=== PATIENT | male | born 1990 | race Caucasian/White ===

== ENCOUNTER 2025-09-08 20:40 | Inpatient (IN) | payer MEDICARE, MEDICAID, SELFPAY ==
--- OUTSIDE RECORDS SUMMARY | 2025-09-06 08:53 | XMS_ITS | Encounter Summary ---
Author Organization [facility] ystem Address [address] [place] [address] Phone Care Team Providers Care Exhibitor Sales Name Role Phone Ainsley Calloway NP Primary Care Provider [phone] Encounter Details Date Type Department Care Team (Late st Contact Info) Description 09/06/2025 8:53 AM EST Anesthesia Event [facility] [address] [place] [address] Kyara Wakefield, PEGGY [address] [facility] [address] [place] [address] Anesthesia Record Procedure Summary Procedure Name Responsible Anesthesiologist Anesthesia Start Time Anesthesia Stop Time Events No events on file. Meds * Agents No agents on file. * Blood No blood administrations on file. Lines, Drains, and Airways No LDAs on file. documented in this encounter Social History Tobacco Use Types Packs/Day Years Used Date Smoking Tobacco: Never Smokeless Tobacco: Never Alcohol Use Standard Drinks/Week Comments No 0 (1 standard drink = 0.6 oz pur e alcohol) Sex and Gender Information Value Date Recorded Sex Assigned at Male 06/13/2025 12:32 PM EDT Legal Sex Male 8:58 AM EDT Gender Identity Male 06/13/2025 12:32 PM EDT Sexual Orientation Not on file documented as of this encounter Functional Status * Are you deaf or do you have serious difficulty hearing? Answer Date of Assessment Author No 08/05/2025 1:00 AM Svitlana Alvarado RN * Are you blind or do you have serious difficulty seeing, even when wearing glasses? Answer Date of Assessment Author No 08/05/2025 1:00 AM Svitlana Alvarado RN * Do you have serious difficulty walking or climbing stairs? Answer Date of Assessment Author No 08/05/2025 1:00 AM Svitlana Alvarado RN * Do you have serious difficulty dressing or bathing? Answer Date of Assessment Author No 08/05/2025 1:00 AM Svitlana Alvarado RN * Because of a physical, mental, or emotional condition, do you have serious difficulty doing errandsalone such as visiting the doctor? Answer Date of Assessment Author No 08/05/2025 1:00 AM Svitlana Alvarado RN documented as of this encounter Mental Status * Because of a physical, mental, or emotional condition, do you have serious difficulty concentrating, remembering, or making decisions? Answer Entry Date Author No 08/05/2025 1:00 AM Svitlana Alvarado RN documented in this encounter Plan of Treatment Not on file documented as of this encounter Visit Diagnoses Not on filedocumented in this encounter Care Teams Exhibitor Sales Relationship Specialty Start Date End Date Ainsley Calloway NP [address] [place] [id number] PCP - General Family Medicine 02/06/25 documented as of this encounter
--- OUTSIDE RECORDS SUMMARY | 2025-09-07 14:05 | XMS_ITS | Encounter Summary ---
Author Organization [facility] Address [address] [place] [address] Phone Care Team Providers Care Reporter Anchor Name Role Phone Ainsley Calloway NP Primary Care Provider [phone] Reason for Visit * Reason Comments Suicidal Homicidal Encounter Details Date Type Department Care Team (Latest Contact Info) Description 09/07/2025 2:05 PM EST - 09/08/2025 6:07 PM EST Hospital Encounter [facility] - Emergency Department [address] [place] [phone] Pete Bowman MD [address] [place] [phone] Handy Hoyos MD [address] [place] [address] [phone] Patrick Malik MD [address] [place] [phone] Eric Chaidez MD [address] [place] [address] [phone] Suicidal ideation (Primary Dx); Influenza A; Schizoaffective disorder, unspecified type (CMS/HCC) [F25.9] Discharge Disposition: Psychiatric Facility Social History Tobacco Use Types Packs/Day Years [...] on file documented as of this encounter Last Filed Vital Signs Vital Sign Reading Time Taken Comments Blood Pressure 124/78 09/08/2025 6:04 PM EST Pulse 78 09/08/2025 6:04 PM EST Temperature 36.9 C (98.4 F) 09/08/2025 6:04 PM EST Respiratory Rate 15 09/08/2025 6:04 PM EST Oxygen Saturation 99% 09/08/2025 6:04 PM EST Inhaled Oxygen Concentration - - Weight - - Height - - Body Mass Index - - documented in this encounter Functional Status * Are you [...] of Assessment Author No 08/05/2025 1:00 AM Luis Daniel Alvarado RN * Do you have serious difficulty dressing or bathing? Answer Date of Assessment Author No 08/05/2025 1:00 AM Svitlana Alvarado RN * Because of a physical, mental, or emotional condition, do you have serious difficulty doing errandsalone such as visiting the doctor? Answer Date of Assessment Author No 08/05/2025 1:00 AM Svitlana Alvarado RN * SI Initial Risk Score (Dickinson/C-SSRS) Question Answer Date of Assessment Author 1. Wish to be 1 09/07/2025 2:30 PM Zhane Curtis RN 2. Non-Specifc Active Suicid al Thoughts (now or prior to arrival) 0 09/07/2025 2:30 PM Zhane Curtis RN SI Admission Asmt Score 1 09/07/2025 2:30 P M Zhane Curtis RN 3. Suicidal Thoughts with Me thod Without Specific Plan or Intent to Act 0 09/07/2025 2:30 PM Zhane Curtis RN 4. Suicidal Intent Without Specific Plan 0 09/07/2025 2:30 PM Zhane Curtis RN 5. Suicide Intent with Speci fic Plan 0 09/07/2025 2:30 PM Zhane Curtis RN How long ago did you do any of these? 0 09/07/2025 2:30 PM Zhane Curtis RN * Calculated C-SSRS Risk Score (Lifetime/Recent) Answer Date of Assessment Author Moderate Risk 09/07/2025 10:06 PM Christine Romero MSW * Suicidal Ideation Question Answer Date of Assessment Author 1. Wish to be (Lifetime) Yes 09/07/2025 10:06 PM Christine Romero MSW 2. Non-Specific Active Suici iwona Thoughts (Lifetime) Yes 09/07/2025 10:06 PM Christine Romero MSW 3. Active Suicidal Ideation with any Methods (Not Plan) Without Intent to Act (Lifetime) Yes 09/07/2025 10:06 PM Misty Romero MSW 4. Active Suicidal Ideation with Some Intent to Act, Without Specific Plan (Lifetime) No 09/07/2025 10:06 PM Misty Romero MSW 5. Active Suicidal Ideation with Specific Plan and Intent (Lifetime) No 09/07/2025 10:06 PM Christine Romero MSW 1. Wish to be (Past 1 Month) Yes 09/07/2025 10:06 PM Christine Romero MSW 2. Non-Specific Active Suici iwona Thoughts (Past 1 Month) Yes 09/07/2025 10:06 PM Me neeraj Romero ROOF PANEL HANGER 3. Active Suicidal Ideation with any Methods (Not Plan) Without Intent to Act (Past 1 Month) Yes 09/07/2025 10:06 PM EST McCarth y, Christine, ROOF PANEL HANGER 4. Active Suicidal Ideation with Some Intent to Act, Without Specific Plan (Past 1 Month) No 09/07/2025 10:06 PM EST McCarth y, Christine, ROOF PANEL HANGER 5. Active Suicidal Ideation with Specific Plan and Intent (Past 1 Month) No 09/07/2025 10:06 PM EST Davila, Christine , ROOF PANEL HANGER * Intensity of Ideation Question Answer Date of Assessment Author Most Severe Ideation Rating (Lifetime) 2 09/07/2025 10:06 PM EST Davila, Christine , ROOF PANEL HANGER Frequency (Lifetime) 5 09/07/2025 10:06 PM EST Davila, Christine, ROOF PANEL HANGER Duration (Lifetime) 3 09/07/2025 10:[address] Davila, Christine, ROOF PANEL HANGER Controllability (Lifetime) 3 09/07/2025 10: 06 PM EST Davila, Christine, ROOF PANEL HANGER Deterrents (Lifetime) 1 09/07/2025 10:06 PM EST Davila, Christine, ROOF PANEL HANGER Reasons for Ideation (Lifetime) 2 10:06 PM EST Davila, Christine, ROOF PANEL HANGER Most Severe Ideation Rating (Past 1 Month) 2 09/07/2025 10:06 PM EST Davila, Christine , ROOF PANEL HANGER Frequency (Past 1 Month) 5 09/07/2025 10:06 PM EST Davila, Christine, ROOF PANEL HANGER Duration (Past 1 Month) 3 09/07/2025 10:06 PM EST Davila, Christine, ROOF PANEL HANGER Controllability (Past 1 Month) 3 09/07/2025 10:06 PM EST Davila, Christine, ROOF PANEL HANGER Deterrents (Past 1 Month) 1 09/07/2025 10:0 6 PM EST Davila, Christine, ROOF PANEL HANGER Reasons for Ideation (Past 1 Month) 2 09/07/2025 10:06 PM EST Davila, Christine , ROOF PANEL HANGER * Suicidal Behavior Question Answer Date of Assessment Author Actual Attempt (Lifetime) No 09/07/2025 10:0 6 PM EST Davila, Christine, ROOF PANEL HANGER Has subject engaged in non-suicidal self-injurious behavior? (Lifetime) No 09/07/2025 10:06 PM EST Giovanni Chichi stanford, ALYSSA Interrupted Attempts (Lifetime) No 10:06 PM EST Giovanni ChristineALYSSA Aborted or Self-Interrupted Attempt (Lifetime) No 09/07/2025 10:06 PM EST Davila, Christine ALYSSA Preparatory Acts or Behavior (Lifetime) No 09/07/2025 10:06 PM EST Christine Davila ROOF PANEL HANGER documented as of this encounter Mental Status * Because of a physical, mental, or emotional condition, do you have serious difficulty concentrating, remembering, or making decisions? Answer Entry Date Author No 08/05/2025 1:00 AM EST Svitlana Frias RN documented in this encounter Discharge Instructions * Discharge Instructions* Pete Bowman MD - 09/07/2025 3:02 PM EST Instructions as per [facility] inpatient placement. * Attachments The following attachments cannot be sent through Care Everywhere. * Suicidal Thoughts ([place]) * Depression, Adult ED ([place]) * Influenza ([place]) documented in this encounter Medications at Time of Discharge metoclopramide (REGLAN) 10 MG tablet Take 10 mg by mouth three times a day as needed (Nausea) meclizine (ANTIVERT) 12.5 MG tablet Take 1 tablet (12.5 mg) by mouth three times a day as needed for dizziness 30 tablet 08/06/2025 hydrOXYzine (ATARAX) 25 MG tablet Take 25 mg by mouth nightly sertraline (ZOLOFT) 50 MG tablet Take 50 mg by mouth nightly with 25 mg tablet for total dose 75 mg nightly Beclomethasone Diprop HFA (Qvar RediHaler) 40 MCG/ACT aerosol Inhale 2 puffs two times a day Melatonin 5 MG tablet Take 5 mg by mouth nightly Gummy lactobacillus (CULTURELLE) capsule Take 1 capsule by mouth two times a day polyethylene glycol (GLYCOLAX) 17 GM/SCOOP powder Take 17 g by mouth nightly as needed multivitamin with minerals (THERA M PLUS) tablet Take 1 tablet by mouth daily dicyclomine (BENTYL) 20 MG tablet Take 20 mg by mouth two times a day gabapentin (NEURONTIN) 800 MG tablet Take 800 mg by mouth nightly famotidine (PEPCID) 20 MG tablet Take 20 mg by mouth two times a day irbesartan (AVAPRO) 150 MG tablet Take 150 mg by mouth every morning propranolol (INDERAL) 40 MG tablet Take 40 mg by mouth two times a day sucralfate (CARAFATE) 1 g tablet Take 1 g by mouth three times a day acetaminophen (TYLENOL) 500 MG tablet Take 1,000 mg by mouth every six hours as needed (pain) OXcarbazepine (TRILEPTAL) 150 MG tablet Take 150 mg by mouth nightly albuterol HFA (PROVENTIL HFA;VENTOLIN HFA) 108 (90 Base) MCG/ACT inhaler Inhale 1 puff 3 (three) times a day 08/22/2014 omeprazole (PriLOSEC) 40 MG capsule Take 40 mg by mouth daily on empty stomach 01/15/2022 sertraline (ZOLOFT) 25 MG tablet Take 25 mg by mouth nightly with 50 mg tablet for total dose 75 mg nightly documented as of this encounter Progress Notes * Yi Parker PhT - 09/08/2025 10:15 AM EST Medication History Review The prior to admission(TRANSPORTATION BROKER) medication list was reviewed and updated for Doreen Marie. The patient was interviewed and found to be a good historian. Information gathered from: Dr. Grimaldo, [facility], and Other (Patient) Assessment of compliance with medication regimen at home: Compliant Patient is on the following high risk medication(s): Anticonvulsant - Oxcarbazepine, Gabapentin Medications with discrepancies: Other: Patient reports he ran out/is almost out of Mutlivitamin, probiotic, Meclizine, Metoclopramide Medication (s) patient no longer takes or was removed from TRANSPORTATION BROKER list (select All that applies): Patient reports not taking: Amoxicillin - finished taking; states he was to take final 2 tablets today (09/08) Cranberry Supplement Flonase - states this made his nose bleed Ondansetron Additional Comments: Patient was interviewed bedside and found to be a good historian. Patient reports: Gabapentin 800 mg nightly Oxcarbazepine 150 mg nightly Metoclopramide 10 mg TID PRN Patient denies Aspirin. TRANSPORTATION BROKER list updated with sources available at time of consult Medication list: Prior to Admission Medications Prescriptions Informant Beclomethasone Diprop HFA (Qvar RediHaler) 40 MCG/ACT aerosol Self, Pharmacy prescription data Sig: Inhale 2 puffs two times a day Melatonin 5 MG tablet Self Sig: Take 5 mg by mouth nightly Gummy OXcarbazepine (TRILEPTAL) 150 MG tablet Self, Pharmacy prescription data Sig: Take 150 mg by mouth nightly acetaminophen (TYLENOL) 500 MG tablet Self Sig: Take 1,000 mg by mouth every six hours as needed (pain) albuterol HFA (PROVENTIL HFA;VENTOLIN HFA) 108 (90 Base) MCG/ACT inhaler Self, Pharmacy prescription data Sig: Inhale 1 puff 3 (three) times a day dicyclomine (BENTYL) 20 MG tablet Self, Pharmacy prescription data Sig: Take 20 mg by mouth two times a day famotidine (PEPCID) 20 MG tablet Self, Pharmacy prescription data Sig: Take 20 mg by mouth two times a day gabapentin (NEURONTIN) 800 MG tablet Self, Pharmacy prescription data Sig: Take 800 mg by mouth nightly hydrOXYzine (ATARAX) 25 MG tablet Self, Pharmacy prescription data Sig: Take 25 mg by mouth nightly irbesartan (AVAPRO) 150 MG tablet Self, Pharmacy prescription data Sig: Take 150 mg by mouth every morning lactobacillus (CULTURELLE) capsule Self Sig: Take 1 capsule by mouth two times a day meclizine (ANTIVERT) 12.5 MG tablet Self Sig: Take 1 tablet (12.5 mg) by mouth three times a day as needed for dizziness metoclopramide (REGLAN) 10 MG tablet Self, Pharmacy prescription data Sig: Take 10 mg by mouth three times a day as needed (Nausea) multivitamin with minerals (THERA M PLUS) tablet Self Sig: Take 1 tablet by mouth daily omeprazole (PriLOSEC) 40 MG capsule Self, Pharmacy prescription data Sig: Take 40 mg by mouth daily on empty stomach polyethylene glycol (GLYCOLAX) 17 GM/SCOOP powder Self Sig: Take 17 g by mouth nightly as needed propranolol (INDERAL) 40 MG tablet Self, Pharmacy prescription data Sig: Take 40 mg by mouth two times a day sertraline (ZOLOFT) 25 MG tablet Self, Pharmacy prescription data Sig: Take 25 mg by mouth nightly with 50 mg tablet for total dose 75 mg nightly sertraline (ZOLOFT) 50 MG tablet Self, Pharmacy prescription data Sig: Take 50 mg by mouth nightly with 25 mg tablet for total dose 75 mg nightly sucralfate (CARAFATE) 1 g tablet Self, Pharmacy prescription data Sig: Take 1 g by mouth three times a day Facility-Administered Medications: None Patient Complexity Score for Pharmacy Medication History (ED) ED Pharmacy Complexity Score: 50 Patient Complexity Score for Pharmacy Medication History (INPT) INPT Pharmacy Complexity Score: 50 *Please note - This home medication list was updated using the resources available at the time of the consult and may require further updates as new information becomes available* Winston Martin documented in this encounter Consult Notes * Ally Hargrove CNP - 09/08/2025 12:48 PM EST Images from the original note were not included. PSYCHIATRIC CONSULTATION REASON FOR CONSULT A psychiatric consult was placed by Dr. Malik for evaluation of a patient with suicidal ideation.The patient's record was reviewed, patient was interviewed, and clinical staff were consulted to complete this comprehensive psychiatric consultation. Patient Name: Doreen Marie Date of : 1990 Date of Service: 09/08/2025 Time of Service: 2:06 PM Length of Service: 78 minutes Source of information: Patient, Staff collateral CHIEF COMPLAINT: I am not feeling well HISTORY OF PRESENT ILLNESS The patient is a 35 y.o. male with a psychiatric history of schizoaffective disorder. Bipolar type versus bipolar disorder, history of inpatient hospitalizations, no history of suicide attempts who presented on 09/07/2025 to the Emergency Department for suicidal ideation with no plan as well as vague HI with no plan or intent. Per ED triage note: Doreen Marie is a 35 y.o. male presenting with Suicidal and Homicidal Self present with mother reports suicidal and homicidal, reports hx of Schizophrenia, called outpt crisis team, advised to come in, reports currently on abx for ear infection, I don't know if that'swhat is messing with me , denies any substance or alcohol use, [facility] aware Patient is seen, resting on a bed in his room. He is noted to be calm and cooperative on approach. He states that he is in the hospital because he is not feeling well, and that he has not been sleeping much over the past week. He states that his sister has been staying with him to help him, howeverhe has been having thoughts of wanting to harm himself and also vague thoughts to harm her. He denies any plan or intent with wanting to harm himself or his sister, and reports that he would not harmhis sister. He states that his mood has been okay, however he is noted to be flat through out assessment. He reports that over the past week, he has not been sleeping much, getting a total of 8-10 hours over the past week. He states that his appetite had been normal, however he physically is not feeling well due to having the flu, and his appetite has decreased. He continues to endorse SI with noplan or intent at this time, and feels safe in the hospital. He cannot identify any clear trigger for his suicidal thoughts either. When asked about hallucinations, he states that he might be hearingsome voices, and he reports that he is seeing images in his mind. He reports that he is achy, sweaty and cold on exam, secondary to influenza infection. He reports that he has been compliant with his medications as well. Discussed plan of care with patient, which he verbalized understanding to. At this time Marlenye are involved in the treatment planning for this patient. Presenting Problem: suicidal ideation, depression Frequency: worsening over the past week Modifiable factors: IPLOC Severity: moderate PAST PSYCHIATRIC HISTORY Outpatient psychiatric providers: Provider: Dr. Carmelita Yusuf Therapist: Reports he has a new therapist Past medication trails: trileptal, hydroxyzine, gabapentin, sertraline, abilify (allergy); trazodone (allergy) History of inpatient psychiatric hospitalization: reports remote history of inpatient hospitalizations 10 years ago History of suicide attempts: denies Date of most recent suicide attempt:N/A History of Self-Injurious behavior: denies History of violence towards others: denies History of eating disorder:no History of Trauma:none elicited FAMILY PSYCHIATRIC HISTORY Family history of psychiatric illness: Mother with schizoaffective d/o, bipolar type, sister with mental illness Family history of suicide attempt: denies Family history of substance use disorder: denies SUBSTANCE HISTORY: Only listing what is appropriate History of: Alcohol use: Denies Tobacco use: Denies Marijuana use: Denies Opioid use: Denies Cocaine use: Denies Other: Denies History of detox/treatment admissions for substance use: Denies History of substance related legal issues: Denies MEDICAL/SURGICAL HISTORY: Name of outpatient PCP: Ainsley Calloway NP History of: Head injury: Denies Seizures: Denies RAILROAD COMMISSIONER infection: Denies Chronic pain: Denies Obstructive Sleep Apnea (STONE): Denies SOCIAL HISTORY: Living situation: Lives alone : no Children: no Employment: Denies being employed at this time Social History Socioeconomic History Marital status: Single Spouse name: Not on file Number of children: Not on file Years of education: Not on file Highest education level: Not on file Occupational History Not on file Tobacco Use Smoking status: Never Smokeless tobacco: Never Substance and Sexual Activity Alcohol use: No Drug use: No Sexual activity: Defer Other Topics Concern Not on file Social History Narrative Not on file Social Drivers of Health Financial Resource Strain: Not on file Food Insecurity: Food Insecurity Present (10/24/2024) Received from [facility] [employer] Hunger Vital Sign Within the past 12 months, you worried that your food would run out before you got the money to buymore.: Sometimes true Within the past 12 months, the food you bought just didn't last and you didn't have money to get more.: Sometimes true Transportation Needs: Unmet Transportation Needs (10/24/2024) Received from [facility] PRAPARE - Transportation Lack of Transportation (Medical): Yes Lack of Transportation (Non-Medical): Yes Physical Activity: Not on file Stress: Not on file Social Connections: Not on file Intimate Partner Violence: Not on file Housing Stability: Low Risk (10/24/2024) Received from [facility] Housing Stability What is your housing situation today?: Has housing Are you worried about losing your housing?: No Think about the place you live. Do you have problem with any of the following? (Choose all that apply): None of the Above ALLERGIES: Allergies[1] RELEVANT LABS: Recent Results (from the past 24 hours) Urine drugs of abuse screen Collection Time: 09/07/25 2:45 PM Result Value Ref Range Amphetamines, Urine Screen None Detected None Detected Barbiturates, Urine Screen None Detected None Detected Benzodiazepines, Urine Screen None Detected None Detected Cocaine, Urine Screen None Detected None Detected Opiates, Urine Screen None Detected None Detected Cannabinoids (THC), Urine Screen None Detected None Detected Tricyclic Antidepressants, Urine Screen None Detected None Detected Fentanyl, Urine Screen None Detected None Detected Methadone, Urine Screen None Detected None Detected Oxycodone, Urine Screen None Detected None Detected Buprenorphine, Urine Screen None Detected None Detected Phencyclidine, Urine Screen None Detected None Detected COVID-19 ([facility]) Collection Time: 09/07/25 2:45 PM Specimen: Nasopharynx; Swab Result Value Ref Range COVID-19 ([facility]) PCR Negative Negative Extra Urine Culture Tube Collection Time: 09/07/25 2:45 PM Specimen: Urine, Clean Catch Result Value Ref Range Extra Tube Urinalysis with reflex Collection Time: 09/07/25 2:45 PM Result Value Ref Range Color, Urine Colorless Colorless, Yellow Clarity, Urine Clear Clear Specific [place], Urine 1.001 (L) 1.002 - 1.030 pH, Urine 6.5 5.0 - 8.0 Leukocytes, Urine Negative Negative Nitrite, Urine Negative Negative Protein, Urine Negative Negative Glucose, Urine Negative Negative Ketones, Urine Negative Negative Bilirubin, Urine Negative Negative Blood, Urine Negative Negative Flu PCR Collection Time: 09/07/25 2:45 PM Specimen: Nasopharynx; Swab Result Value Ref Range Flu A by PCR Positive (A) Negative Flu B by PCR Negative Negative Respiratory Syncytial Virus PCR Collection Time: 09/07/25 2:45 PM Specimen: Nasopharynx; Swab Result Value Ref Range Respiratory Syncytial Virus PCR Negative Negative CBC with auto differential Collection Time: 09/07/25 4:44 PM Result Value Ref Range WBC 6.7 4.5 - 10.8 10*3 ??l RBC 5.05 4.70 - 6.10 10*6 ??l Hemoglobin 13.5 (L) 14.0 - 18.0 g/dL Hematocrit 40.9 (L) 42.0 - 52.0 % MCV 81 80 - 95 fL MCH 26.7 25.4 - 39.0 pg MCHC 33.0 31.0 - 37.0 g/dL RDW 13.7 11.5 - 14.5 % Platelets 340 150 - 450 10*3 ??l MPV 9.2 7.0 - 11.0 fL Neutrophils % 45.4 40.0 - 80.0 % Lymphocytes % 38.5 20.0 - 40.0 % Monocytes % 12.7 (H) 2.0 - 10.0 % Eosinophils % 2.2 1.0 - 6.0 % Basophils % 0.9 0.0 - 1.0 % Immature Granulocyte % 0.3 0.0 - 0.9 % Neutrophils Absolute 3.03 2.00 - 7.00 K/mm3 Absolute Immature Granulocyte 0.02 0.00 - 0.09 K/mm3 Lymphocytes Absolute 2.57 1.00 - 3.00 K/mm3 Monocytes Absolute 0.85 0.20 - 1.00 K/mm3 Eosinophils Absolute 0.15 0.00 - 0.50 K/mm3 Basophils Absolute 0.06 0.00 - 0.10 K/mm3 Comprehensive metabolic panel Collection Time: 09/07/25 4:44 PM Result Value Ref Range Glucose 85 70 - 100 mg/dL BUN 5 (L) 6 - 19 mg/dL Creatinine 0.7 0.4 - 1.2 mg/dL eGFR >60.00 >60.00 mL/min/1.73m*2 Sodium 141 135 - 145 mmol/L Potassium 3.5 3.4 - 5.1 mmol/L Chloride 103 98 - 109 mmol/L CO2 22 22 - 29 mmol/L Anion Gap 16 6 - 16 mmol/L Calcium 9.2 8.5 - 10.5 mg/dL Total Bilirubin 0.4 0.2 - 1.2 mg/dL Alkaline Phosphatase 94 40 - 129 U/L ALT (SGPT) 21 0 - 40 U/L AST 24 0 - 37 U/L Total Protein 7.7 6.0 - 8.5 g/dL Albumin 4.7 3.3 - 5.2 g/dL Estimated Creatinine Clearance 195.1 mL/min Acetaminophen level Collection Time: 09/07/25 4:44 PM Result Value Ref Range Acetaminophen Level <5.1 <15.0 ug/mL Salicylate level Collection Time: 09/07/25 4:44 PM Result Value Ref Range Salicylate Level <=3.0 3.0 - 30.0 mg/dL Ethanol Collection Time: 09/07/25 4:44 PM Result Value Ref Range Ethanol <=10 0 - 10 mg/dL MOST RECENT VITAL SIGNS: Vitals: 09/08/25 1132 BP: 121/81 Pulse: 79 Resp: 18 Temp: 97.4 ??F (36.3 ??C) SpO2: 99% MENTAL STATUS EXAM: Physical Exam: Musculoskeletal: moves all extremities; no abnormal movements Gait: gait not assessed EPS:none noted or observed MSE: Appearance: well groomed and appropriately dressed Behavior: cooperative, eye contact good, and pleasant Psychomotor Activity: normal Speech: slowed and soft Mood: depressed Affect: mood congruent and flat Thought Process: logical, linear, and goal-directed Associations: no loosening of associations Thought Content: no delusions and no obsessions Suicidal Ideation: suicidal ideation with no plan or intent Homicidal Ideation: vague HI towards sister, no plan/intent Perceptions/Experiences: endorses that he has been seeing images and possibly hearing things Insight: limited Judgement: limited Cognitive Exam: Orientation: oriented X3 Memory: immediate recall intact, short term memory intact, and residential memory intact Attention/Concentration: intact to observation Fund of Knowledge: average Language: normal comprehension and normal repetition Capacity: Cannot leave AMA Health Care Proxy: not invoked SI Precautions assessment Suicidal thoughts: yes -Plan:no -Intent: no Suicidal or Self-harm behaviors: no Risk factors: age, gender, history of mental illness Protective factors: Patient in good behavioral controls and is able to plan for safety, agreeable to reach out to staff if feeling unsafe. At this time recommend: downgrading to 2:1 suicide precautions, will continue to assess patient ongoing treatment needs throughout hospital stay. For additional documentation please refer to nursing psychosocial documentation for standardized C-SSRS re-assessment. REVIEW OF SYSTEMS Constitutional: No fever, no weight loss Musculoskeletal: NO EPS Positive: suicidal ideation with no plan/intent, vague HI, depressive symptoms Negative for: headache, sore throat, chest pain, dizziness, blurred vision, fatigue, joint pain, constipation, skin itchiness, dysuria, cough, SOB, vomiting, diarrhea, nausea, abdominal pain. CURRENT MEDICATIONS: Medications Ordered Prior to Encounter[2] ASSESSMENT: The patient is a 35 y.o. male with a psychiatric history of schizoaffective disorder. Bipolar type versus bipolar disorder, history of inpatient hospitalizations, no history of suicide attempts who presented on 09/07/2025 to the Emergency Department for suicidal ideation with no plan as well as vague HI with no plan or intent. Diagnostically, presentation is most consistent with schizoaffective order, bipolar type. Given ongoing inconsistent sleep, depressive symptoms as well as suicidal ideation, patient continues to be recommended for psychiatric IPLOC for safety+stabilization, diagnostic clarity, medication management, therapy/skills building and aftercare planning. The patient reported being compliant with home medications of: gabapentin, trileptal, sertraline, hydroxyzine and expressed interest in continuing these medications while in the Emergency Department.Discussed risks and benefits of these medications with the patient and the patient was receptive tothis medication treatment plan while in the ED. Continue to evaluate patient's mental status and monitor sleep and appetite closely, observe any potential side effects from psychiatric medications. Plan to continue to monitor possible interactionsbetween psychiatric medications and medical medications. Will continue to provide counseling to help patient deal with stressors, and provide education and support, while continuing to work with medicine to help facilitate patient's clinical progress. HPI and nursing notes were reviewed. Jovany are involved in the ongoing treatment planning for thispatient. At this time the patient may not leave AMA. Will continue a 2:1 sitter at this time. Plan to continue to monitor the patient while the patient remains in the hospital. Medical workup review: Flu A positive; BUN 5; H/H 13.5/40.9; Utox negative DIAGNOSTIC IMPRESSION: Principal Problem: Schizoaffective disorder ([facility]) (POA: Yes) PLAN: Medication plan: Gabapenin 800 mg at bedtime Oxcarbazepine 150 mg at bedtime Sertraline 75 mg at bedtime Hydroxyzine 25 mg QHS Monitor: Continue 2:1 monitoring to mitigate suicide and elopement risk and monitor ongoing patientsafety while boarding in the ED. Patient may not leave AMA Discussed risks and benefits of medication plan with patient who was agreeable to aforementioned treatment plan. Update covering medical provider Dr. Manjarrez to inform them of recommended treatment plan. Jovany involved with inpatient bed search. Ally Hargrove CNP 09/08/2025 2:06 PM [1] Allergies Allergen Reactions Aripiprazole Other (see comments) Dystonia Lurasidone Other (see comments) Dystonia Sulfa Antibiotics Sulfamethoxazole Other (see comments) Sulfamethoxazole-Trimethoprim Trazodone Other (see comments) Panic attacks Trimethoprim Other (see comments) [2] No current facility-administered medications on file prior to encounter. Current Outpatient Medications on File Prior to Encounter Medication Sig Dispense Refill metoclopramide (REGLAN) 10 MG tablet Take 10 mg by mouth three times a day as needed (Nausea) [DISCONTINUED] ondansetron ODT (ZOFRAN-ODT) 4 MG disintegrating tablet Take 4 mg by mouth [DISCONTINUED] amoxicillin (AMOXIL) 875 MG tablet Take 1 tablet (875 mg) by mouth two times a day for 10 days 20 tablet 0 meclizine (ANTIVERT) 12.5 MG tablet Take 1 tablet (12.5 mg) by mouth three times a day as needed for dizziness 30 tablet 0 [DISCONTINUED] fluticasone (FLONASE) 50 MCG/ACT nasal spray Administer 1 spray into each nostril daily hydrOXYzine (ATARAX) 25 MG tablet Take 25 mg by mouth nightly sertraline (ZOLOFT) 50 MG tablet Take 50 mg by mouth nightly with 25 mg tablet for total dose 75 mgnightly Beclomethasone Diprop HFA (Qvar RediHaler) 40 MCG/ACT aerosol Inhale 2 puffs two times a day Melatonin 5 MG tablet Take 5 mg by mouth nightly Gummy [DISCONTINUED] CRANBERRY PO Take 2 capsules by mouth every morning lactobacillus (CULTURELLE) capsule Take 1 capsule by mouth two times a day polyethylene glycol (GLYCOLAX) 17 GM/SCOOP powder Take 17 g by mouth nightly as needed multivitamin with minerals (THERA M PLUS) tablet Take 1 tablet by mouth daily dicyclomine (BENTYL) 20 MG tablet Take 20 mg by mouth two times a day gabapentin (NEURONTIN) 800 MG tablet Take 800 mg by mouth nightly famotidine (PEPCID) 20 MG tablet Take 20 mg by mouth two times a day irbesartan (AVAPRO) 150 MG tablet Take 150 mg by mouth every morning propranolol (INDERAL) 40 MG tablet Take 40 mg by mouth two times a day sucralfate (CARAFATE) 1 g tablet Take 1 g by mouth three times a day acetaminophen (TYLENOL) 500 MG tablet Take 1,000 mg by mouth every six hours as needed (pain) OXcarbazepine (TRILEPTAL) 150 MG tablet Take 150 mg by mouth nightly albuterol HFA (PROVENTIL HFA;VENTOLIN HFA) 108 (90 Base) MCG/ACT inhaler Inhale 1 puff 3 (three) times a day omeprazole (PriLOSEC) 40 MG capsule Take 40 mg by mouth daily on empty stomach sertraline (ZOLOFT) 25 MG tablet Take 25 mg by mouth nightly with 50 mg tablet for total dose 75 mgnightly * Christine Davila MSW - 09/07/2025 7:14 PM ESTAssociated Order(s): CONSULT TO ASPIRE/ TRACY TRACY Adult PIF/Assessment 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 No Secondary Emergency Contact: Swathi Varghese Address: [address] [place] [phone] [facility] Mobile Relation: Insurance Law Specialist Preferred language: Kuwaiti Lot Attendant needed? No Currently Active Insurance Payor Plan Subscriber Member ID MEDICARE MEDICARE PART A & B DOREEN MARIE [id number] [facility] DOREEN MARIE [id number] ED Arrival Date/Time (R): 09/07/2025 2:05 PM Consult Order Date/Time (R): 09/07/2025 3:04 PM Ready Date (R): 09/07/2025 Ready Time (R): 3:04pm Has this person received services here before? No Living Situation: Homeless? (R): No Collateral Contact: Mother Jacobo, Does the patient have a guardian? [facility]: No Guardianship Contact: Email Address: [email or web address] Ok to send a message? No Ask the person: Are you in a Dangerous Situation? No If Yes, please explain: (Follow and document per your emergency protocols) Patient Preferred Languages Lot Attendant Needed No Spoken Language Kuwaiti Written Language Kuwaiti Assessment Location of Service (R): ED Who directed client to ED? (R) Self/Family Was the patient sent with a Section 12 (R) No Who signed Section 12? (R) Presenting Concerns: What has caused this person to seek Services at this time? Pt presented to ED for concerns of decompensating schizoaffective disorder Precipitating Factors: Pt reports increased thoughts of SI/HI against mother and sister. Medical/Physical Past Medical History: Diagnosis Date Bipolar 1 disorder ([facility]) GERD (gastroesophageal reflux disease) Schizoaffective disorder ([facility]) Allergies Reported Allergies[1] Medications Prior to Admission medications Medication Sig Start Date End Date Taking? Authorizing Provider ondansetron ODT (ZOFRAN-ODT) 4 MG disintegrating tablet Take 4 mg by mouth 07/19/25 Lindsey Ramirez MD amoxicillin (AMOXIL) 875 MG tablet Take 1 tablet (875 mg) by mouth two times a day for 10 days 08/30/25 09/09/25 Tamica Jackson MD meclizine (ANTIVERT) 12.5 MG tablet Take 1 tablet (12.5 mg) by mouth three times a day as needed for dizziness 08/06/25 Malathi Harrington MD MPH fluticasone (FLONASE) 50 MCG/ACT nasal spray Administer 1 spray into each nostril daily Lindsey Ramirez MD hydrOXYzine (ATARAX) 25 MG tablet Take 25 mg by mouth nightly Lindsey Ramirez MD sertraline (ZOLOFT) 50 MG tablet Take 50 mg by mouth nightly with 25 mg tablet for total dose 75 mgnightly Lindsey Ramirez MD Beclomethasone Diprop HFA (Qvar RediHaler) 40 MCG/ACT aerosol Inhale 2 puffs two times a day Lindsey Ramirez MD Melatonin 5 MG tablet Take 5 mg by mouth nightly Gummy Lindsey Ramirez MD CRANBERRY PO Take 2 capsules by mouth every morning Lindsey Ramirez MD lactobacillus (CULTURELLE) capsule Take 1 capsule by mouth two times a day Lindsey Ramirez MD polyethylene glycol (GLYCOLAX) 17 GM/SCOOP powder Take 17 g by mouth nightly as needed Lindsey Ramirez MD multivitamin with minerals (THERA M PLUS) tablet Take 1 tablet by mouth daily Lindsey Ramirez MD dicyclomine (BENTYL) 20 MG tablet Take 20 mg by mouth two times a day Lindsey Ramirez MD gabapentin (NEURONTIN) 800 MG tablet Take 800 mg by mouth nightly Lindsey Ramirez MD famotidine (PEPCID) 20 MG tablet Take 20 mg by mouth two times a day Lindsey Ramirez MD irbesartan (AVAPRO) 150 MG tablet Take 150 mg by mouth every morning Lindsey Ramirez MD propranolol (INDERAL) 40 MG tablet Take 40 mg by mouth two times a day Lindsey Ramirez MD sucralfate (CARAFATE) 1 g tablet Take 1 g by mouth three times a day Lindsey Ramirez MD acetaminophen (TYLENOL) 500 MG tablet Take 1,000 mg by mouth every six hours as needed (pain) Lindsey Ramirez MD OXcarbazepine (TRILEPTAL) 150 MG tablet Take 150 mg by mouth nightly Lindsey Ramirez MD albuterol HFA (PROVENTIL HFA;VENTOLIN HFA) 108 (90 Base) MCG/ACT inhaler Inhale 1 puff 3 (three) times a day 08/22/14 Lindsey Ramirez MD omeprazole (PriLOSEC) 40 MG capsule Take 40 mg by mouth daily on empty stomach 01/15/22 Lindsey Ramirez MD sertraline (ZOLOFT) 25 MG tablet Take 25 mg by mouth nightly with 50 mg tablet for total dose 75 mgnightly Lindsey Ramirez MD Relevant History No family history on file. Social History[2] Addiction Is there a history of, or current substance use or other addictive behavior? No Was a toxicology screen performed? Yes Results: Negative Was Narcan administered during the last 30 days? No Explain (Please include date and time): Addiction/ Substance Use History Substance Type First Use/Age of Onset Last Use Duration/Frequency Quantities Comments Alcohol Cannabis Cocaine/Crack Heroin Opiates/Narcotics Benzodiazepines Stimulants Hallucinogens Prescription Other: Click or tap here to enter text. Most Recent Acute Admission(s) and Treatment History Has there been a recent acute admission or treatment history? No Please include dates of admission, service type, name of agency/provider, goal/outcome: Pt last hospitalized in 2016 Mental Status Exam/Risk Assessment Mental Status Exam/Risk Assessment (within normal limits unless checked, items checked are addressed in clinical formulation/narrative: *Harm to Others, *Harm to Self , Affect, Appearance, Appetite, Energy, Impulsivity, Insight, Judgement, Orientation: Person, Time, Place, Situation, Perception: Delusions, Hallucinations, Sleep, Speech, and Thought Content *Harm to Self and Others include: Means, accessibility (included access to firearms), lethality of means, suicidal/assault history, lethality or attempts/assaults, family history, self- injurious behavior Risk and Protective Factors: Risk- Schizoaffective, SI/HI thoughts Protective- help seeking, incredibly insightful Clinical Formulation/Narrative/Medical Necessity: Doreen Marie is a 35 year-old male who presented to the ED with concerns of decompensating Schizoaffective disorder. Pt is not known to TRACY. Pt carries a diagnosis of Schizoaffective disorder. [facility] Pt has hx of IP admissions, denies hx of suicide attempts.Pt lives with his mother in [place]. Pt is Kuwaiti speaking. Pt denies has a hx of legal issues. Pt is medically cleared. Pt reported I've been having fleeting thoughts that almost seem like images to hurt my mother and my sister . Pt reports that these have been happening sporadically over the last few months but havebecome consistent recently. Pt reports that once these thoughts and feelings started he removed allknives and other things that can be used as weapons from his possession. Pt reports no HI/SIB. Pt reports he is hallucinating but only at night when he is trying to sleep. Pt reports that he is not sleeping well and his appetite has been significantly lower than normal. Pt tested positive for flu-Atoday. Pt reports medications in the [place]uda and abilify family give him dystonia. Patient observed to be laying in a hospital bed, in green scrubs, appears stated age. Pt appeared to be alert & oriented to person, place, time & situation. Pt engaged and cooperative. Pt eyecontact WNL. Pt mood appeared to be depressed with flt affect. Pt speech normal in volume, tone & rate. Pt presents with an adequate fund of knowledge & of average intelligence. Pt thought content contains some paranoia. 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 Impulsivity moderate. Judgement high. Insight high. Pt found to be moderate risk on [place] suicide scale. Odalis, pt's Mother, was contacted for collateral ([phone]). Odalis reports that Doreen knows whathe needs and she supports him getting help. Odalis reports that nothing has happened to spark concern, though these thoughts are very concerning. Odalis advocates for IPLOC At this time, pt is recommended IPLOC due to increasing SI/HI thoughts and decompensating schizoaffective disorder. Radha Mckenna and Dr. Bowman were consulted and in agreement with plan. Strengths and Services Preferences: Person's strengths and service preferences: Pt advocates for IPLOC Is there a Safety Plan? (R): No If yes, please explain: Was a Safety Plan completed or updated during the course of this intervention? (R) No If no, please explain: Pt unable to safety plan, IPLOC recommended Diagnosis Type Mental Health Only (R): Yes Substance Use Disorder Only (R): No Dual Diagnosis (R): No Comments: Is this person diagnosed with Autism Spectrum Disorder? (R): No Was a Doc to Doc performed? (R): No Was this an Opiod overdose? (R): No Is this a SUDE (Substance Use Disorder Evaluation)? No Was there an TRACY Peer or FP participating in the intervention? (R): No Who initiated FP intervention? (R): Identified Needs and Goals for Treatment Safety and stabilization 2. Medication management 3. Wraparound services Additional Recommendations Additional Recommendations: Outpatient Mental Health Provider and Self- Help/Peer/Family Support Services If other, please explain: Disposition Details Information gathered from:Person Served, Family/Guardian, Hospital Staff, and Reports If other, please explain: Medical Clearance Requested (R): Yes Medical Clearance Requested by (R): TRACY/CBL If other, please explain: Medical Clearance Provided (R): Yes Medical Clearance Provided Where? (R): ED If other, please explain: Clinical Consult done with:MICHELLE Franz Current Safety Assessment: Unable to plan for safety If other, please explain: Inital Disposition: Inpatient Psychiatric General For Acute Care Time (R): Psychiatric Consult Began Date (R): Time (R): Psychiatric Intervention Began Date (R): Time (R): Intervention Began Time (R) Telehealth: NA Diagnosis: F25.9 Schizoaffective disorder Consult Note [1] Allergies Allergen Reactions Aripiprazole Other (see comments) Dystonia Lurasidone Other (see comments) Dystonia Sulfa Antibiotics Sulfamethoxazole Other (see comments) Sulfamethoxazole-Trimethoprim Trazodone Other (see comments) Panic attacks Trimethoprim Other (see comments) [2] Social History Tobacco Use Smoking status: Never Smokeless tobacco: Never Substance Use Topics Alcohol use: No Drug use: No Cosigned by Breann Lucas MS at 09/08/2025 9:19 AM EST documented in this encounter ED Notes * Patrick Malik MD - 09/08/2025 1:03 PM EST This patient is escalated to observation status on Service Date: 09/08/2025 at Service Time: 1:03 PM . Observation is necessary for ongoing evaluation of suicidal ideation viral syndrome influenza A Patient is awake alert and oriented. He has been feeling somewhat ill for the past week had already been prescribed amoxicillin for cough and cold symptoms. He is not a Tamiflu candidate given the timeframe of onset of symptoms. Seen by[facility] and ED psych nurse practitioner service. Placed in ED observation for further management. Patrick Malik MD 09/08/25 1306 * Pete Bowman MD - 09/07/2025 3:04 PM EST Chief Complaint Patient presents with Suicidal Homicidal HPI Doreen Marie is a 35 y.o. male presenting to the Emergency Department here at [facility] with chief complaint of thoughts about hurting himself not sure about what he would do thought about hurting his sister although they have a good relationship something about stabbing and then sometimes he hears voices at nighttime. The history is given by patient. History of bipolar disorder, schizoaffective disorder not on lithium. Says he not been hospitalizedfor over 10 years he is wanting if his illnesses wants precipitating things. He had a cough about aweek he had a negative chest x-ray 4 days ago and noticed he had an MRI of his brain that was negative in July for severe headache. Says he had an ear infection treated in urgent care with amoxicillin his ears look normal He spoke to his therapist today who encouraged him to come to the hospital he has been having thoughts about hurting himself no definite plans hurting his sister suddenly with stabbing and hearing voices.. Multiple psychiatric admissions in the past over 10 years approximately 10 no detoxification placement. Lives by himself. Patient History Past Medical History: Diagnosis Date Bipolar 1 disorder (CMS/HCC) GERD (gastroesophageal reflux disease) Schizoaffective disorder (CMS/HCC) Surgical History[1] No family history on file. Social History[2] Review of Systems All systems were reviewed and were negative except as noted in the above history of present illness and ROS. ED Triage Vitals [09/07/25 1400] Temp Pulse Resp BP SpO2 96.3 ??F (35.7 ??C) 84 20 138/90 98 % Temp src Heart Rate Source Patient Position BP Location FiO2 (%) (Set) Temporal -- Sitting Left arm -- Social history is a non-smoker no alcohol or drugs Physical Exam General: Flat affect but cooperative HEENT: Atraumatic, EOMI, mouth and throat moist. No erythema or tonsillar swelling PERRL TMs are entirely normal no erythema normal light reflex Neck: Supple, no masses. Supple without adenopathy Lungs: Clear to auscultation. Cardiac: RRR, no rubs. Abdomen: Soft, non-tender, normal bowel sounds, no hepatosplenomegaly. Extremities: No tenderness. Skin: No bruises or rashes. Neuro: Cranial nerves 2-12 intact, motor strength 5/5 upper and lower extremities, sensation: normal to touch. s. Psychiatric: Not agitated. X-ray chest 2 views (Results Pending) [facility] ED COURSE & MEDICAL DECISION MAKING This is a 35-year-old male schizoaffective disorder bipolar disorder no psychiatric admissions for over 10 years please has been ill last week with cough lungs are clear chest x-ray -4 days ago will repeat also ear pain but it is not entirely normal after being on amoxicillin essentially finish 7-day course. 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 Single he has thoughts about hurting himselfbut no plan thoughts about using knives with his sister although they have had a good relationship and sometimes hearing voices. Medically cleared pending labs. No findings of concern on exam. Influenza A is positive but he is out of the window for Tamiflu since she has had this cough for likely more than 4 days had an x-ray that was done then and symptoms he says for 1 week CBC is unremarkable CMP panel unremarkable some drug screen unremarkable urine drug screen unremarkable. Seen by Jovany and deemed to be inpatient level. Independent Interpretation of Studies: Differential includes depression, anxiety, psychosis, ETOH intoxication, drug overdose, suicide attempt or ideation. ED and nursing records reviewed. Additional pertinent available records reviewed: Reviewed the triage note Discussion of management with physician, qualified health professional, and/or appropriate source: History of schizoaffective disorder bipolar call is therapist who encouraged him to come to the hospital there is no findings on his physical exam of concern his ears look entirely normal his lungs are clear his saturation is good he has a persistent cough I will check flu COVID RSV check chest x-ray -4 days ago. With MRI of the brain negative in July. He is medically cleared pending labs no longer on lithium. To be seen by the railway traction line worker for SI HI and possible hallucination. Escalation of care to admission or observation considered to be determined by psychiatric services Consideration of treatments or testing, not performed: None other needed Chronic Conditions affecting care include psychiatric disorder Social Determinants of Health significantly affecting the care and disposition of this patient include psychiatric disorder Final diagnoses: [R46.544] Suicidal ideation Impression: Also homicidal ideation hallucination medically cleared Plan Instructions as per [facility] VOICE DICTATION: This document was primarily generated by voice recognition software. There may be incorrect spelling or phrases that were missed and/or unedited. Unintentional errors may thus be present, resulting in a change of meaning or intent. Please contact me directly if you have any questions regarding thisdictation. [1] No past surgical history on file. [2] Social History Tobacco Use Smoking status: Never Smokeless tobacco: Never Substance Use Topics Alcohol use: No Drug use: No Pete Bowman MD 09/07/252219 * Jose Woodard RN - 09/07/2025 2:02 PM EST Doreen Marie is a 35 y.o. male presenting with Suicidal and Homicidal Self present with mother reports suicidal and homicidal, reports hx of Schizophrenia, called outpt crisis team, advised to come in, reports currently on abx for ear infection, I don't know if that'swhat is messing with me , denies any substance or alcohol use, [facility] called [facility] aware documented in this encounter Miscellaneous Notes * Behavioral Health - Renee Roth MSW - 09/08/2025 3:07 PM EST Pt was accepted at [facility] 09/08 @5pm Bed Placement has been relayed * Mental Status Update - Renee Siegel MSW - 09/08/2025 9:10 AM EST Patient Name:Doreen Marie Date of :1990 Completed Date/Date of Service: 09/08/2025 Date of Evaluation:09/07/2025 Location of Evaluation:ED Provider: Renee Siegel LCSW Additional Practitioners Present? No Risk Factors Harm to Self: Plans to Harm Self Vague Plan (Moderate Risk) Means Accessibility Poor Access (Low Risk) Lethality of Means Low Lethality (Low Risk) Suicidal Attempts None Reported (No Risk) Lethality of Attempts None Reported (None Reported) Last Attempt None Reported (No Risk) Family History None Reported (No Risk) Harm to Others: Plan to Harm Others Vague Plans (Moderate Risk) Means Accessibility Poor Access (Low Risk) Lethality of Means None Reported (No Risk) Assault History None Reported (No Risk) Lethality of Assaults None Reported (No Risk) Last Attempt None Reported (No Risk) Family History None Reported (No Risk) Arrest Record None Reported (No Risk) Physicial Abuse History None Reported (No Risk) Sexual Abuse History None Reported (No Risk) Substance Abuse None Reported (No Risk) Mental Status: Hallucinations Periodic or non-intrusive (Low Risk) Judgement and Reality Testing Predominantly Intact and Functional (Low Risk) Orientation Predominantly Hopeful and Future Oriented (Low Risk) Interpersonal Interactions Intermittent Contact with Others (Low Risk) Impulsivity Normal (No Risk) Stress Minimal (Low Risk) Loss None Reported (No Risk) Physical Condition Good (Low Risk) Financial Stress Mild (Low Risk) Living Arrangements Living Arrangements: With Others (Low Risk) Support From Significant Others Support from Significant Others: Positive/Helpful (No Risk) Suicide/Homicide (Age Related): Gender:male Age Suicide Male Age Suicide: 35-49 years (Low Risk) Age Homicide Male Age Homicide: 13-16/30-60 years (Moderate Risk) Overall Risk Level To Self Moderate To Others Moderate MSU Clinical Formulation and Disposition Status (Please include updated concerns or information regarding the safety status, why the disposition remains the same or why it is being revised. Include new information, progress and updated goals Pt was met with to conduct 24-hour mental status update. Doreen Marie is a 35 year-old male who has been in the emergency department since 09/07/25 with concerns of increased thoughts of SI/HI. Today, pt is reporting I still don't feel well . Pt is positive for Flu A. Pt reports feeling some symptoms, observed wiping nose throughout this interaction. Pt continues to endorse SI and reports the thoughts come and go . Pt denies current HI but shared that he has had thoughts or images to hurt his Mom and sister in the past. Pt denied experiencing current AVH. He continues to express interest in IPLOC and receiving help he needs. Pt identified his Mom, sister, former foster Mom, and several other friends as supportive during this time. Pt was observed sitting up in bed, wearing green scrubs, and appears stated age. Pt was alert and oriented x4. Pt was engaged and cooperative. Pt mood appeared to be depressed with congruent affect. Pt speech was low in tone and eye contact was appropriate. Pt thought content contained suicidal ideation. Pt did not appear to be responding to internal stimuli. Impulsivity moderate, insight good, and judgement fair. At this time, pt continues to meet section 12 criteria and inpatient bed search will continue. Start Time: 9AM Telehealth: NA Total Duration Total Duration (Sum of the Face to Face and Collateral durations) 15 minutes Location:[facility] documented in this encounter Plan of Treatment Not on file documented as of this encounter Procedures Procedure Name Priority Date/Time Associated Diagnosis Comments CBC WITH AUTO DIFFERENTIAL STAT 09/07/2025 4:44 PM EST ETHANOL STAT 09/07/2025 4:44 PM EST ACETAMINOPHEN LEVEL STAT 09/07/2025 4 :44 PM EST SALICYLATE LEVEL STAT 09/07/2025 4:44 PM EST COMPREHENSIVE METABOLIC PANEL STAT 09/07/2025 4:44 PM EST XR CHEST 2 VW STAT 09/07/2025 4:05 PM EST RESPIRATORY SYNCYTIAL VIRUS PCR Add-On 09/07/2025 2:45 PM EST COVID-19 ([facility]) STAT 09/07/2025 2:45 PM EST URINALYSIS WITH REFLEX STAT 09/07/2025 2:45 PM EST EXTRA URINE CULTURE TUBE STAT 09/07/2025 2:45 PM EST URINE DRUGS OF ABUSE SCREEN STAT 09/07/2025 2:45 PM EST URINALYSIS WITH REFLEX STAT 09/07/2025 2:45 PM EST FLU PCR STAT Add-on 09/07/2025 2:45 PM EST documented in this encounter Results * Ethanol (09/07/2025 4:44 PM EST) Ethanol <=10 0 - 10 mg/dL 09/07/2025 5:21 PM EST [facility] Comment:NONE DETECTED: Resul t <10 should be interpreted as NONE DETECTED. Blood Venous blood / Unknown Venipuncture / Unknown 09/07/2025 4:44 PM EST 09/07/2025 4:49 PM EST Pete Bowman MD LAB BLOOD ORDERABLES Final Result [facility] [address] [place] [address], [place] [phone] * Salicylate level (09/07/2025 4:44 PM EST) Salicylate Level <=3.0 3.0 - 30.0 mg/dL 09/07/2025 5:21 PM EST [facility] Blood Venous blood / Unknown Venipuncture / Unknown 09/07/2025 4:44 PM EST 09/07/2025 4:49 PM EST Pete Bowman MD LAB BLOOD ORDERABLES Final Result Performing Organization Address City/[facility]/ZIP Co de Phone Number [facility] [address] [facility] [place] [address], [place] [phone] * Acetaminophen level (09/07/2025 4:44 PM EST) Acetaminophen Level <5.1 <15.0 ug/mL 09/07/2025 5:21 PM EST [facility] Blood Venous blood / Unknown Venipuncture / Unknown 09/07/2025 4:44 PM EST 09/07/2025 4:49 PM EST Pete Bowman MD LAB BLOOD ORDERABLES Final Result Performing Organization Address City/[facility]/ZIP Co de Phone Number [facility] [address] [facility] [place] [address], [place] [phone] * (ABNORMAL) Comprehensive metabolic panel (09/07/2025 4:44 PM [facility]) Glucose 85 70 - 100 mg/dL 09/07/2025 5:21 PM [facility] BUN 5(L) 6 - 19 mg/dL 09/07/2025 5:21 PM [facility] Creatinine 0.7 0.4 - 1.2 mg/dL 09/07/2025 5:21 PM [facility] eGFR >60.00 >60.00 mL/min/1.7 3m*2 09/07/2025 5:21 PM [facility] Sodium 141 135 - 145 mmol/L 09/07/2025 5:21 PM [facility] Potassium 3.5 3.4 - 5.1 mmol/L 09/07/2025 5:21 PM [facility] Chloride 103 98 - 109 mmol/L 09/07/2025 5:21 PM [facility] CO2 22 22 - 29 mmol/L 09/07/2025 5:21 PM [facility] Anion Gap 16 6 - 16 mmol/L 09/07/2025 5:21 PM [facility] Calcium 9.2 8.5 - 10.5 mg/dL 09/07/2025 5:21 PM [facility] Total Bilirubin 0.4 0.2 - 1.2 mg/dL 09/07/2025 5:21 PM [facility] Alkaline Phosphatase 94 40 - 129 U/L 09/07/2025 5:21 PM [facility] ALT (SGPT) 21 0 - 40 U/L 09/07/2025 5:21 PM [facility] AST 24 0 - 37 U/L 09/07/2025 5:21 PM [facility] Total Protein 7.7 6.0 - 8.5 g/dL 09/07/2025 5:21 PM [facility] Albumin 4.7 3.3 - 5.2 g/dL 09/07/2025 5:21 PM [facility] Estimated Creatinine Clearance 195.1 mL/min 09/07/2025 5:21 PM [facility] Blood Venous blood / Unknown Venipuncture / Unknown 09/07/2025 4:44 PM EST 09/07/2025 4:49 PM EST us Pete Bowman MD LAB BLOOD ORDERABLES Final Result [facility] [address] [place] [address], [place] [phone] * (ABNORMAL) CBC with auto differential (09/07/2025 4:44 PM EST) WBC 6.7 4.5 - 10.8 10*3 l 09/07/2025 4:55 PM [facility] RBC 5.05 4.70 - 6.10 10*6 l 09/07/2025 4:55 PM [facility] Hemoglobin 13.5(L) 14.0 - 18.0 g/dL 09/07/2025 4:55 PM [facility] Hematocrit 40.9(L) 42.0 - 52.0 % 09/07/2025 4:55 PM [facility] MCV 81 80 - 95 fL 09/07/2025 4:55 PM [facility] MCH 26.7 25.4 - 39.0 pg 09/07/2025 4:55 PM [facility] MCHC 33.0 31.0 - 37.0 g/dL 09/07/2025 4:55 PM [facility] RDW 13.7 11.5 - 14.5 % 09/07/2025 4:55 PM [facility] Platelets 340 150 - 450 10*3 l 09/07/2025 4:55 PM [facility] MPV 9.2 7.0 - 11.0 fL 09/07/2025 4:55 PM [facility] Neutrophils % 45.4 40.0 - 80.0 % 09/07/2025 4:55 PM [facility] Lymphocytes % 38.5 20.0 - 40.0 % 09/07/2025 4:55 PM [facility] Monocytes % 12.7(H) 2.0 - 10.0 % 09/07/2025 4:55 PM [facility] Eosinophils % 2.2 1.0 - 6.0 % 09/07/2025 4:55 PM [facility] Basophils % 0.9 0.0 - 1.0 % 09/07/2025 4:55 PM [facility] Immature Granulocyte % 0.3 0.0 - 0.9 % 09/07/2025 4:55 PM [facility] Neutrophils Absolute 3.03 2.00 - 7.00 K/mm3 09/07/2025 4:55 PM [facility] Absolute Immature Granulocyte 0.02 0.00 - 0.09 K/mm3 09/07/2025 4:55 PM [facility] Lymphocytes Absolute 2.57 1.00 - 3.00 K/mm3 09/07/2025 4:55 PM [facility] Monocytes Absolute 0.85 0.20 - 1.00 K/mm3 09/07/2025 4:55 PM [facility] Eosinophils Absolute 0.15 0.00 - 0.50 K/mm3 09/07/2025 4:55 PM [facility] Basophils Absolute 0.06 0.00 - 0.10 K/mm3 09/07/2025 4:55 PM [facility] Blood Venous blood / Unknown Venipuncture / Unknown 09/07/2025 4:44 PM EST 09/07/2025 4:49 PM EST us Pete Bowman MD LAB BLOOD ORDERABLES Final Result [facility] [address] [place] [address], * X-ray chest 2 views (09/07/2025 4:05 PM EST) Anatomical Region Laterality Modality Body Computed Radiogr aphy 09/07/2025 3:02 PM EST Impressions 09/07/2025 4:34 PM EST IMPRESSION: No acute disease. Narrative 09/07/2025 4:34 PM EST CLINICAL HISTORY: Cough. PA and lateral views of the chest were obtained. There is no focal infiltrate nor consolidation. The cardiac and mediastinal contours are normal. There is no evidence of congestive heart failure. There is no pleural effusion. Procedure Note Shaw Davila MD - 09/07/2025 CLINICAL HISTORY: Cough. PA and lateral views of the chest were obtained. There is no focal infiltrate nor consolidation. The cardiac andmediastinal contours are normal. There is no evidence of congestive heart failure. There is nopleural effusion. IMPRESSION: No acute disease. Pete Bowman MD IMG XR PROCEDURES Final Res ult * Respiratory Syncytial Virus PCR (09/07/2025 2:45 PM EST) Respiratory Syncytial Virus PCR Negative Negative LTT PANTHER ANALYZER-DP H 09/07/2025 6:31 PM EST [facility] Swab (Nasopharynx) Non-blood Collection / Unknown 09/07/2025 2:45 PM EST 09/07/2025 2:55 PM EST Pete Bowman MD LAB MICROBIOLOGY - GENERAL ORDERABLES Final Result Performing Organization Address City/[facility] Co de Phone Number [facility] [address] [place] [address], [place] [phone] * (ABNORMAL) Flu PCR (09/07/2025 2:45 PM EST) Flu A by PCR Positive(A) Negative LTT PANTHER ANALYZER-DP H 09/07/2025 6:31 PM EST [facility] Flu B by PCR Negative Negative LTT PANTHER ANALYZER-DP H 09/07/2025 6:31 PM [facility] Swab (Nasopharynx) Non-blood Collection / Unknown 09/07/2025 2:45 PM EST 09/07/2025 2:55 PM EST Pete Bowman MD LAB MICROBIOLOGY - GENERAL ORDERABLES Final Result [facility] [address] [place] [address], [place] [phone] * (ABNORMAL) Urinalysis with reflex (09/07/2025 2:45 PM EST) Color, Urine Colorless Colorless, Yellow 09/07/2025 3:16 PM [facility] Clarity, Urine Clear Clear 09/07/2025 3:16 PM [facility] Specific [place], Urine 1.001(L) 1.002 - 1.030 09/07/2025 3:16 PM [facility] pH, Urine 6.5 5.0 - 8.0 09/07/2025 3:16 PM [facility] Leukocytes, Urine Negative Negative 09/07/2025 3:16 PM [facility] Nitrite, Urine Negative Negative 09/07/2025 3:16 PM [facility] Protein, Urine Negative Negative 09/07/2025 3:16 PM [facility] Glucose, Urine Negative Negative 09/07/2025 3:16 PM [facility] Ketones, Urine Negative Negative 09/07/2025 3:16 PM [facility] Bilirubin, Urine Negative Negative 09/07/2025 3:16 PM [facility] Blood, Urine Negative Negative 09/07/2025 3:16 PM [facility] Urine Urine specimen obtained by clean catch procedure / Unknown Non-blood Collection / Unknown 09/07/2025 2:45 PM EST 09/07/2025 3:04 PM [facility] - 09/07/2025 3:16 PM EST Per protocol, no culture performed. For protocol inquiries or add-on testing, please call Infectious Disease at [phone] or [phone]. us Pete Bowman MD LAB URINE ORDERABLES Final Result [facility] [address] [place] [address], [place] [phone] * Extra Urine Culture Tube (09/07/2025 2:45 PM EST) Pathologist [facility] Extra Tube 09/07/2025 9:01 PM [facility] Comment:An Extra tube was co llected from this patient. Please follow add on workflow or contact the Laboratory if you wish to place orders on this specimen. Urine Urine specimen obtained by clean catch procedure / Unknown Non-blood Collection / Unknown 09/07/2025 2:45 PM EST 09/07/2025 2:55 PM EST Pete Bowman MD LAB MICROBIOLOGY - GENERAL ORDERABLES Final Result [facility] [address] [place] [address], [place] [phone] * COVID-19 ([facility]) (09/07/2025 2:45 PM EST) [facility] COVID-19 ([facility]) PCR Negative Negative LTT PANTHER ANALYZER-DP H 09/07/2025 6:31 PM [facility] Swab (Nasopharynx) Non-blood Collection / Unknown 09/07/2025 2:45 PM EST 09/07/2025 2:55 PM EST Pete Bowman MD LAB MICROBIOLOGY - GENERAL ORDERABLES Final Result [facility] [address] [place] [address], [place] [phone] * Urine drugs of abuse screen (09/07/2025 2:45 PM EST) [facility] Amphetamines, Urine Screen None Detected None Detected 09/07/2025 3:29 PM [facility] Barbiturates, Urine Screen None Detected None Detected 09/07/2025 3:29 PM [facility] Benzodiazepines, Urine Screen None Detected None Detected 09/07/2025 3:29 PM [facility] Cocaine, Urine Screen None Detected None Detected 09/07/2025 3:29 PM [facility] Opiates, Urine Screen None Detected None Detected 09/07/2025 3:29 PM [facility] Cannabinoids (THC), Urine Screen None Detected None Detected 09/07/2025 3:29 PM [facility] Tricyclic Antidepressants, Urine Screen None Detected None Detected 09/07/2025 3:29 PM [facility] Fentanyl, Urine Screen None Detected None Detected 09/07/2025 3:29 PM [facility] Methadone, Urine Screen None Detected None Detected 09/07/2025 3:29 PM [facility] Oxycodone, Urine Screen None Detected None Detected 09/07/2025 3:29 PM [facility] Buprenorphine, Urine Screen None Detected None Detected 09/07/2025 3:29 PM [facility] Phencyclidine, Urine Screen None Detected None Detected 09/07/2025 3:29 PM [facility] Urine Urine specimen obtained by clean catch procedure / Unknown Non-blood Collection / Unknown 09/07/2025 2:45 PM EST 09/07/2025 2:56 PM [facility] - 09/07/2025 3:29 PM EST This is a screening test for urine drugs of ABUSE only, performed using Jose Yovany analyzer. It is not designed or intended to monitor treatment or assess patient compliance. Those purposes are best served by a specific assay for the specific drug being administered. Like any screening test, this drug screen has inherent limitations. A result of NONE DETECTED indicates the absence of the major metabolites of the tested drugs or their presence at a level below the cut-off concentration (see below). False negative results may be due to the pharmacokinetics of the drug and/or the timing of the sample relative to the use of the drug in question. A POSITIVE result is a presumptive qualitative positive which indicates that the major metabolites of the tested drugs are likely present at or above their cut- off concentration (see below). False positive results may be caused by cross-reacting substances. Unconfirmed positive results of this screening test must not be used for non- medical purposes. Cutoffs for Drug Classes: Amphetamines 1000 ng/mL Barbiturates 200 ng/mL Benzodiazepines 100 ng/mL Cocaine 300 ng/mL Opiates 300 ng/mL TCA 300 ng/mL THC 50 ng/mL Fentanyl 5 ng/mL Methadone 300 ng/ml Oxycodone 100 ng/ml Buprenorphine 5 ng/ml Phencyclidine 25 ng/ml us Pete Bowman MD LAB URINE ORDERABLES Final Result [facility] [address] [place] [address], documented in this encounter Visit Diagnoses Diagnosis Schizoaffective disorder (CMS/HCC)- Primary Schizoaffective disorder, unspecified condition Suicidal ideation Influenza A Influenza with other respiratory manifestations Schizoaffective disorder, unspecified type (CMS/HCC) [F25.9] documented in this encounter Administered Medications Active Administered Medications - up to 3 most recent administrations Medication Order MAR Action Action Date Dose Rate Site acetaminophen (TYLENOL) tablet 650 mg 650 mg, Oral, Every 6 hours PRN, pain 1-3 or if patient refuses opiate (if ordered), pain 4-6 or if patient refuses opiate (if ordered), fever (greater than 100.4 degree F), Starting on Sat09/08/25 at 1251 Given 09/08/2025 3:26 PM EST 650 mg artificial tears lubricant (GENTEAL) ophthalmic ointment Each Eye, As needed, eye dryness, Starting on Sat09/08/25 at 1309 Given 09/08/2025 3:27 PM EST 1 Application dextromethorphan-guaiFENesin 10-100 MG/5ML syrup 10 mL 10 mL, Oral, Every 6 hours PRN, cough, Starting on Sat09/08/25 at 1251 Given 09/08/2025 1:24 PM EST 10 mL dicyclomine (BENTYL) capsule 20 mg 20 mg, Oral, 2 times daily, First dose on Sat09/08/25 at 1028 Given 09/08/2025 10:34 AM EST 20 mg gabapentin (NEURONTIN) capsule 800 mg 800 mg, Oral, Nightly, First dose on Sat09/07/25 at 2242 Given 09/07/2025 10:49 PM EST 800 mg hydrOXYzine (ATARAX) tablet 25 mg 25 mg, Oral, Nightly, First dose on Sat09/08/25 at 2100 Melatonin tablet 5 mg 5 mg, Oral, Nightly, First dose on Sat09/07/25 at 2242 Given 09/07/2025 10:49 PM EST 5 mg ondansetron ODT (ZOFRAN-ODT) disintegrating tablet 4 mg 4 mg, Sublingual, Every 8 hours PRN, nausea, vomiting, Starting on Sat09/08/25 at 1506, Do not attempt to push tablet through the foil. Using dry hands, place tablet on tongue and allow to dissolve. Swallow with saliva (no need to administer with liquids). Given 09/08/2025 3:26 PM EST 4 mg OXcarbazepine (TRILEPTAL) tablet 150 mg 150 mg, Oral, Nightly, First dose on Sat09/07/25 at 2242, Hazardous Medication - Handle with gloves RN may NOT CRUSH or SPLIT dose; This must be done by Pharmacy. Given 09/07/2025 10:49 PM EST 150 mg propranolol (INDERAL) tablet 40 mg 40 mg, Oral, 2 times daily, First dose on Sat09/08/25 at 1028, Hold for SBP less than: 100, Hold for HR less than: 60 Given 09/08/2025 10:33 AM EST 40 mg sertraline (ZOLOFT) tablet 75 mg 75 mg, Oral, Nightly, First dose on Sat09/07/25 at 2242 Given 09/07/2025 10:49 PM EST 75 mg sucralfate (CARAFATE) 1 GM/10ML suspension 1 g 1 g, Oral, 3 times daily, First dose on Sat09/08/25 at 1028, *Hold tube feedings at least 30 minutes before and 30 minutes after administration* Given 09/08/2025 1:23 PM EST 1 g Given 09/08/2025 10:33 AM EST 1 g Inactive Administered Medications - up to 3 most recent administrations Medication Order MAR Action Action Date Dose Rate Site acetaminophen (TYLENOL) tablet 1,000 mg 1,000 mg, Oral, Once, On Sat09/07/25 at 2214, For 1 dose Given 09/07/2025 10:20 PM EST 1,000 mg amoxicillin (AMOXIL) capsule 1,000 mg 1,000 mg, Oral, Once, On Sat09/08/25 at 1028, For 1 dose, Indication: Other, Specify: om Given 09/08/2025 10:33 AM EST 1,000 mg famotidine (PEPCID) tablet 20 mg 20 mg, Oral, Once, On Sat09/07/25 at 2242, For 1 dose Given 09/07/2025 10:49 PM EST 20 mg famotidine (PEPCID) tablet 20 mg 20 mg, Oral, Once, On Sat09/08/25 at 1028, For 1 dose Given 09/08/2025 10:33 AM EST 20 mg hydrOXYzine (ATARAX) tablet 25 mg 25 mg, Oral, Once, On Sat09/07/25 at 2242, For 1 dose Given 09/07/2025 10:49 PM EST 25 mg sucralfate (CARAFATE) 1 GM/10ML suspension 1 g 1 g, Oral, Once, On Sat09/07/25 at 2242, For 1 dose, *Hold tube feedings at least 30 minutes before and 30 minutes after administration* Given 09/07/2025 10:49 PM EST 1 g documented in this encounter Active and Recently Administered Medications Times are shown in EST. Scheduled Medication Order 09/06/2025 09/07/2025 09/08/2025 acetaminophen (TYLENOL) tablet 1,000 mg (COMPLETED) 1,000 mg, Oral, Once, On Sat09/07/25 at 2214, For 1 dose 2220 (Given - Provider: James Villagomez RN) amoxicillin (AMOXIL) capsule 1,000 mg (COMPLETED) 1,000 mg, Oral, Once, On Sat09/08/25 at 1028, For 1 dose, Indication: Other, Specify: om 1033 (Given - Provid er: Zhane Arauz RN) dicyclomine (BENTYL) capsule 20 mg 20 mg, Oral, 2 times daily, First dose on Sat09/08/25 at 1028 1034 (Given - Provid er: Zhane Arauz RN)2100 (Due) famotidine (PEPCID) tablet 20 mg (COMPLETED) 20 mg, Oral, Once, On Sat09/07/25 at 2242, For 1 dose 2249 (Given - Provider: James Villagomez RN) famotidine (PEPCID) tablet 20 mg (COMPLETED) 20 mg, Oral, Once, On Sat09/08/25 at 1028, For 1 dose 1033 (Given - Provid er: Zhane Arauz RN) gabapentin (NEURONTIN) capsule 800 mg 800 mg, Oral, Nightly, First dose on Sat09/07/25 at 2242 224 (Given - Provider: James Villagomez RN) 2099 (Due) hydrOXYzine (ATARAX) tablet 25 mg (COMPLETED) 25 mg, Oral, Once, On Sat09/07/25 at 224, For 1 dose 2248 (Given - Provider: James Villagomez RN) hydrOXYzine (ATARAX) tablet 25 mg 25 mg, Oral, Nightly, First dose on Sat09/08/25 at 2099 2099 (Due) Melatonin tablet 5 mg 5 mg, Oral, Nightly, First dose on Sat09/07/25 at 2241 224 (Given - Provider: James Villagomez RN) 2099 (Due) OXcarbazepine (TRILEPTAL) tablet 150 mg 150 mg, Oral, Nightly, First dose on Sat09/07/25 at 2241, Hazardous Medication - Handle with gloves RN may NOT CRUSH or SPLIT dose; This must be done by Pharmacy. 2248 (Given - Provider: James Villagomez RN) 2099 (Due) propranolol (INDERAL) tablet 40 mg 40 mg, Oral, 2 times daily, First dose on Sat09/08/25 at 1028, Hold for SBP less than: 100, Hold for HR less than: 60 1033 (Given - Provid er: Zhane Arauz RN)2099 (Due) sertraline (ZOLOFT) tablet 75 mg 75 mg, Oral, Nightly, First dose on Sat09/07/25 at 2241 2248 (Given - Provider: James Villagomez RN) 2099 (Due) sucralfate (CARAFATE) 1 GM/10ML suspension 1 g (COMPLETED) 1 g, Oral, Once, On Sat09/07/25 at 224, For 1 dose, *Hold tube feedings at least 30 minutes before and 30 minutes after administration* 2248 (Given - Provider: James Villagomez RN) sucralfate (CARAFATE) 1 GM/10ML suspension 1 g 1 g, Oral, 3 times daily, First dose on Sat09/08/25 at 1028, *Hold tube feedings at least 30 minutes before and 30 minutes after administration* 1033 (Given - Provid er: Zhane Arauz RN)1323 (Given - Provider: Latasha Leroy RN)2100 (Due) PRN Medication Order 09/06/2025 09/07/2025 09/08/2025 acetaminophen (TYLENOL) tablet 650 mg 650 mg, Oral, Every 6 hours PRN, pain 1-3 or if patient refuses opiate (if ordered), pain 4-6 or if patient refuses opiate (if ordered), fever (greater than 100.4 degree F), Starting on Sat09/08/25 at 1251 1526 (Given - Provid er: Latasha Leroy RN) artificial tears lubricant (GENTEAL) ophthalmic ointment Each Eye, As needed, eye dryness, Starting on Sat09/08/25 at 1309 1527 (Given - Provid er: Latasha Leroy RN) dextromethorphan-guaiFENesin 10-100 MG/5ML syrup 10 mL 10 mL, Oral, Every 6 hours PRN, cough, Starting on Sat09/08/25 at 1251 1324 (Given - Provid er: Latasha Leroy RN) ondansetron ODT (ZOFRAN-ODT) disintegrating tablet 4 mg 4 mg, Sublingual, Every 8 hours PRN, nausea, vomiting, Starting on Sat09/08/25 at 1506, Do not attempt to push tablet through the foil. Using dry hands, place tablet on tongue and allow to dissolve. Swallow with saliva (no need to administer with liquids). 1526 (Given - Provid er: Latasha Leroy RN) documented in this encounter Additional Health Concerns Infection Onset Date Last Indicated Resolved Time Influenza/TEJAS 09/07/2025 09/07/2025 09/08/2025 6:0 7 PM EST Covid Possible 09/07/2025 09/07/2025 09/07/2025 6: 31 PM EST Influenza/TEJAS Rule-Out 09/07/2025 09/07/202509/07 6:31 PM EST documented as of this encounter Care Teams Reporter Anchor Relationship Specialty Start Date End Date Ainsley Calloway NP [address] [place] [id number] PCP - General Family Medicine 02/06/25 documented as of this encounter
--- OUTSIDE RECORDS SUMMARY | 2025-09-08 20:48 | XMS_ITS | Clinical Summary ---
Author Organization [facility] Address [address] [facility] [address] [place] [address] Phone Care Team Providers Care Wheat Farmer Name Role Phone Pcp, Unknown Primary Care Provider Unavailabl e Allergies Active Allergy Reactions Criticality Noted Date Comments Aripiprazole Cough Medium 08/02/2025 Sulfamethoxazole-Trimet hoprim Other (See Comments) 08/02/2025 Does not remember side effect Lurasidone Dystonia High 08/02/2025 Trazodone Other (See Comments) 08/02/2025 Panic attacks Medications albuterol 90 mcg/actuation inhaler 06/04/20 25 Active QVAR REDIHALER 40 mcg/actuation inhaler 07/02/20 25 Active dicyclomine (BENTYL) 20 mg tablet 05/07/20 25 Active famotidine (PEPCID) 20 MG tablet 05/11/20 25 Active fluticasone propionate (FLONASE) 50 mcg/actuation nasal spray 07/27/20 25 Active gabapentin (NEURONTIN) 800 MG tablet 07/30/20 25 Active hydrOXYzine (ATARAX) 25 MG tablet 07/27/20 25 Active ibuprofen (ADVIL,MOTRIN) 600 MG tablet 05/11/20 25 Active irbesartan (AVAPRO) 150 MG tablet 07/02/20 25 Active omeprazole (PRILOSEC) 40 MG capsule 07/27/20 25 Active ondansetron (ZOFRAN-ODT) 4 MG disintegrating tablet 07/20/20 25 Active OXcarbazepine (TRILEPTAL) 150 MG IMMEDIATE release tablet 07/30/20 25 Active propranoloL (INDERAL) 40 MG immediate release tablet 06/15/20 25 Active sertraline (ZOLOFT) 25 MG tablet 07/30/20 25 Active sertraline (ZOLOFT) 50 MG tablet 07/30/20 25 Active sucralfate (CARAFATE) 1 gram tablet 07/28/20 25 Active ZEPBOUND 5 mg/0.5 mL subcutaneous pen 07/02/20 Active hydrocortisone acetate (ANUSOL-HC) 25 mg suppositoryIndicat ions:Hemorrhoids, unspecified hemorrhoid type Place 1 suppository (25 mg total) rectally 2 (two) times a day. 10 suppository 1 08/02/20 25 Active psyllium husk, with sugar, (METAMUCIL) 3.4 gram packet Take 1 packet by mouth daily. 30 packet 1 08/02/20 25 Active Encounters Date Type Department Care Team Description 09/06/2025 Procedure Pass [facility] [address] [address] 08/04/[address] [facility] [address] [address] Erin Tony CNP Still symptomatic 08/02/2025 1:00 PM EST Office Visit 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 Not on jose francisco e 12/15/2024 Are you concerned about learning? Not on file 12/15/2024 No 12/15/2024 No 12/15/2024 Digital Access Answer Date Recorded No 12/15/2024 No 12/15/2024 Reliable internet access at home? Not on file 12/15/2024 Device with a working camera? Not on file Sex and Gender Information Value Date Recorded Sex Assigned at Not on file Legal Sex Male 6:30 PM EST Gender Identity Not on file Sexual Orientation Not on file Last Filed Vital Signs Vital Sign Reading Time Taken Comments Blood Pressure 130/80 08/02/2025 1:02 PM EST Pulse - - Temperature - - Respiratory Rate - - Oxygen Saturation - - Inhaled Oxygen Concentration - - Weight 141.5 kg (312 lb) 08/02/2025 1:02 PM EST Height 167.6 cm (5' 6 ) 08/02/2025 1:02 PM EST Body Mass Index 50.36 08/02/2025 1:02 PM EST Plan of Treatment Health Maintenance Due Date Last Done Comments CREATININE LEVEL 1989 POTASSIUM LEVEL 1989 DEPRESSION SCREENING 2001 SMOKING Hx and SMOKELESS TOBACCO SCREENING 2002 HIV ONE-TIME SCREENING (18-65 YEARS) 2007 COVID-19 VACCINE ( season) 2025 07/17/2024, 08/15/2023, 08/13/2022, Additional history exists SCREENING FOR DIABETES 02/12/2026 02/12/2023 Adult Td,Tdap Booster 06/23/2028 06/23/2018 , 08/27/2014, 12/09/2009 LIPID PANEL 05/07/2030 05/07/2025 HEPATITIS A VACCINES Aged Out 09/03/2016, 02/24/20 16 No longer eligible based on patient's age to complete this topic PNEUMOCOCCAL VACCINES (0-49 years) Aged Out 04/30/2022, 01/20/2019 No longer eligibl e based on patient's age to complete this topic HEPATITIS C SCREENING Completed 02/12/2023, 021 INFLUENZA VACCINE Completed 07/27/2025, , 08/15/2023, Additional history exists HIB VACCINES Aged Out No longer eligi ble based on patient's age to complete this topic MENINGOCOCCAL VACCINES (ACWY) Aged Out No longer eligible based on patient's age to complete this topic MENINGOCOCCAL VACCINES (B) Aged Out N o longer eligible based on patient's age to complete this topic Medical Devices Not on file Insurance MEDIC[place] PART A & [place] [employer] [facility] [employer] MEDIC[place] PART [place] & [place] & B Member Subscriber Plan / Payer (Ef fective 2019-) Name:Hu Marie Member ID:[id number] Relation to Subscriber:Self Name:Hu Marie Subscriber ID:[id number] Payer ID:[id number] Group ID:Not on file Type:Medicare Address: [employer] [facility] [address] [address] [facility] MEDICARE PART A & B [facility] MEDIC[place] [phone] Care Teams Wheat Farmer Relationship Specialty Start Date End Date Pcp, Unknown PCP - General 07/27/25 Additional Source Comments The information contained in this document represents components of the legal health record. It is not the complete legal health record.[facility]
--- OUTSIDE RECORDS SUMMARY | 2025-09-08 20:48 | XMS_ITS | Encounter Summary ---
Author Organization [facility] Address [address] [place] [address] Phone Care Team Providers Care Superintendent Maintenance Airports Name Role Phone Ainsley Calloway NP Primary Care Provider [phone] Encounter Details Date Type Department Care Team (Late st Contact Info) Description 10/04/2017 Ancillary Orders [facility] - X-Ray Imaging [address] [place] [address] Varinder Sen MD [address] [place] [address] Abdominal pain Social History Tobacco Use Types Packs/Day Years [...] on file documented as of this encounter Plan of Treatment Not on file documented as of this encounter Results * X-ray abdomen 1 view (10/04/2017 3:03 PM EST) Anatomical Region Laterality Modality Body Computed Radiogr aphy 10/04/2017 2:45 PM EST Impressions 10/04/2017 3:18 PM EST Impression: 1. No plain film evidence for bowel obstruction. Narrative 10/04/2017 3:18 PM EST History: abdominal pain r/o obstruction, Technique: For supine views of the abdomen Comparison: None Findings: There is no definite evidence for free air on these limited supine views. There is a moderate amount of stool in the colon. No plain film evidence for bowel obstruction. Procedure Note Bassam Zapata MD - 10/04/2017 History: abdominal pain r/o obstruction, Technique: For supine views of the abdomen Comparison: None Findings: There is no definite evidence for free air on these limitedsupine views. There is a moderate amount of stool in the colon. No plain film evidence forbowel obstruction. Impression: 1. No plain film evidence for bowel obstruction. Varinder Sen MD IMG XR PROCEDURES Final Result documented in this encounter Visit Diagnoses Diagnosis Abdominal pain Abdominal pain, unspecified site Abdominal pain Abdominal pain, unspecified site documented in this encounter Additional Health Concerns Infection Onset Date Last Indicated Resolved Time Covid Possible 01/17/2021 01/17/2021 01/17/2021 10 :10 PM EDT Covid/Flu/RSV Rule-Out 10/09/2023 10/09/202310/10 3:29 AM EST Covid/Flu/RSV Rule-Out 11/11/2023 11/11/202311/11 6:28 PM EST Covid/Flu/RSV Rule-Out 03/06/2024 03/06/202403/06 9:56 PM EDT Covid/Flu/RSV Rule-Out 09/22/2024 09/22/202409/22 10:48 PM EST Covid/Flu/RSV Rule-Out 10/08/2024 10/08/202410/08 8:25 PM EST Covid/Flu/RSV Rule-Out 07/20/2025 07/20/202507/20 10:54 PM EST Covid Possible 09/07/2025 09/07/2025 09/07/2025 6: 31 PM EST Influenza/TEJAS Rule-Out 09/07/2025 09/07/202509/07 6:31 PM EST documented as of this encounter Care Teams Superintendent Maintenance Airports Relationship Specialty Start Date End Date Ainsley Calloway NP [address] [place] [id number] PCP - General Family Medicine 02/06/25 documented as of this encounter
--- OUTSIDE RECORDS SUMMARY | 2025-09-08 20:48 | XMS_ITS | Encounter Summary ---
Author Organization [facility] Address [address] [place] [address] Phone Care Team Providers Care Fiber Optic Assembly Worker Name Role Phone Ainsley Calloway NP Primary Care Provider [phone] Encounter Details Date Type Department Care Team (Late st Contact Info) Description 12/27/2023 Procedure Pass [facility] [address] [place] [address] Social History Tobacco Use Types Packs/Day Years [...] Diagnoses Not on filedocumented in this encounter Additional Health Concerns Infection Onset Date Last Indicated Resolved Time Covid/Flu/RSV Rule-Out 03/06/2024 03/06/202403/06 9:56 PM EDT Covid/Flu/RSV Rule-Out 09/22/2024 09/22/202409/22 10:48 PM EST Covid/Flu/RSV Rule-Out 10/08/2024 10/08/202410/08 8:25 PM EST Covid/Flu/RSV Rule-Out 07/20/2025 07/20/202507/20 10:54 PM EST Covid Possible 09/07/2025 09/07/2025 09/07/2025 6: 31 PM EST Influenza/TEJAS Rule-Out 09/07/2025 09/07/202509/07 6:31 PM EST documented as of this encounter Care Teams Fiber Optic Assembly Worker Relationship Specialty Start Date End Date Ainlsey Calloway NP [address] [place] [id number] PCP - General Family Medicine 02/06/25 documented as of this encounter
--- OUTSIDE RECORDS SUMMARY | 2025-09-08 20:48 | XMS_ITS | Encounter Summary ---
Author Organization [facility] Address [address] [place] [address] Phone Care Team Providers Care Side Hemmer Name Role Phone Ainsley Calloway NP Primary Care Provider [phone] Reason for Visit * Reason Comments Med Refill Encounter Details Date Type Department Care Team (Late st Contact Info) Description 11/07/2023 Refill [facility] [address] [place] [address] Amanuel Vincent MD [address] [facility] [address] [place] [address] Med Refill Social History Tobacco Use Types Packs/Day Years [...] Date Last Indicated Resolved Time Covid/Flu/RSV Rule-Out 11/11/2023 11/11/202311/11 6:28 PM EST Covid/Flu/RSV Rule-Out 03/06/2024 03/06/202403/06 9:56 PM EDT Covid/Flu/RSV Rule-Out 09/22/2024 09/22/202409/22 10:48 PM EST Covid/Flu/RSV Rule-Out 10/08/2024 10/08/202410/08 8:25 PM EST Covid/Flu/RSV Rule-Out 07/20/2025 07/20/202507/20 10:54 PM EST Covid Possible 09/07/2025 09/07/2025 09/07/2025 6: 31 PM EST Influenza/TEJAS Rule-Out 09/07/2025 09/07/202509/07 6:31 PM EST documented as of this encounter Care Teams Side Hemmer Relationship Specialty Start Date End Date Ainsley Calloway NP [address] [place] [id number] PCP - General Family Medicine 02/06/25 documented as of this encounter
--- OUTSIDE RECORDS SUMMARY | 2025-09-08 20:48 | XMS_ITS | Clinical Summary ---
[facility] Address [address] [place] [address] Phone Care Team Providers Care Genetic Counsellor Name Role Phone Ainsley Calloway NP Primary Care Provider [phone] Allergies Active Allergy Reactions Criticality Noted Date Comments Aripiprazole Other (see comments) High 02/08/2016 Dystonia Lurasidone Other (see comments) High 01/17/2021 Dystonia Sulfa Antibiotics 02/08/2016 Sulfamethoxazole Other (see comments) 10/09/2021 Sulfamethoxazole-Trimethopr im 03/12/2018 Trazodone Other (see comments) 08/02/2025 Panic attacks Trimethoprim Other (see comments) 10/09/2021 Medications albuterol HFA (PROVENTIL HFA;VENTOLIN HFA) 108 (90 Base) MCG/ACT inhaler Inhale 1 puff 3 (three) times a day 08/22/20 14 Active omeprazole (PriLOSEC) 40 MG capsule Take 40 mg by mouth daily on empty stomach 01/16/20 22 Active sertraline (ZOLOFT) 25 MG tablet Take 25 mg by mouth nightly with 50 mg tablet for total dose 75 mg nightly Active OXcarbazepine (TRILEPTAL) 150 MG tablet Take 150 mg by mouth nightly Active acetaminophen (TYLENOL) 500 MG tablet Take 1,000 mg by mouth every six hours as needed (pain) Active multivitamin with minerals (THERA M PLUS) tablet Take 1 tablet by mouth daily Active dicyclomine (BENTYL) 20 MG tablet Take 20 mg by mouth two times a day Active gabapentin (NEURONTIN) 800 MG tablet Take 800 mg by mouth nightly Active famotidine (PEPCID) 20 MG tablet Take 20 mg by mouth two times a day Active irbesartan (AVAPRO) 150 MG tablet Take 150 mg by mouth every morning Active propranolol (INDERAL) 40 MG tablet Take 40 mg by mouth two times a day Active sucralfate (CARAFATE) 1 g tablet Take 1 g by mouth three times a day Active sertraline (ZOLOFT) 50 MG tablet Take 50 mg by mouth nightly with 25 mg tablet for total dose 75 mg nightly Active Beclomethasone Diprop HFA (Qvar RediHaler) 40 MCG/ACT aerosol Inhale 2 puffs two times a day Active Melatonin 5 MG tablet Take 5 mg by mouth nightly Gummy Active lactobacillus (CULTURELLE) capsule Take 1 capsule by mouth two times a day Active polyethylene glycol (GLYCOLAX) 17 GM/SCOOP powder Take 17 g by mouth nightly as needed Active hydrOXYzine (ATARAX) 25 MG tablet Take 25 mg by mouth nightly Active meclizine (ANTIVERT) 12.5 MG tablet Take 1 tablet (12.5 mg) by mouth three times a day as needed for dizziness 30 tablet 08/06/20 25 Active metoclopramide (REGLAN) 10 MG tablet Take 10 mg by mouth three times a day as needed (Nausea) Active CRANBERRY PO Take 2 capsules by mouth every morning Discontinu ed(Patient no longer taking) fluticasone (FLONASE) 50 MCG/ACT nasal spray Administer 1 spray into each nostril daily Discontinu ed(Patient no longer taking) ondansetron ODT (ZOFRAN-ODT) 4 MG disintegrating tablet Take 4 mg by mouth 07/19/20 25 Discontinu ed(Patient no longer taking) amoxicillin (AMOXIL) 875 MG tabletIndications: Non-recurrent acute suppurative otitis media of both ears without spontaneous rupture of tympanic membranes Take 1 tablet (875 mg) by mouth two times a day for 10 days 20 tablet 08/30/20 25 025 Discontinu ed(Patient no longer taking) metoclopramide (REGLAN) 10 MG tablet Take 1 tablet (10 mg) by mouth every eight hours as needed (nausea) for up to 3 days 9 tablet 09/01/20 25 025 Active Problems Problem Noted Date Diagnosed Date Dysequilibrium 08/05/2025 Assessment & Plan (08/05/2025 12:38 AM EST): Episodes of dizziness for the past few days. Head CT unremarkable Maintain hydration Monitor VS Meclizine as needed Fall precautions Morbid obesity 08/05/2025 Assessment & Plan (08/05/2025 12:38 AM EST): Low-carb diet Fatty liver 03/20/2024 Overview (08/11/2025): 04/08: Ongoing elevated LFTs, FibroSure test ordered Essential hypertension 11/26/2023 Abdominal pain 10/10/2023 [place] toxicity 03/23/2023 Chronic low back pain 12/20/2021 Overview (08/11/2025): 04/08 back pain continues off and on 02/05: ongoing back pain - feels this has been worse recently - encouraged to try PT for the back which he declines Chronic tension-type headache, intractable 11/01 Overview (08/11/2025): 03/23/2024: Normal head CT at [facility] on 03/06/2024. No improvement with nortriptyline. Advised the patient to speak to psychiatrist about gabapentin for headache. 01/06/2024: Propranolol restarted for hypertension and heart rate. Still having daily headaches. Try nortriptyline. 04/16/2023: Taper off propranolol. Refer to ENT for possible sinus disease. 02/05: normal brain imaging - on higher dose of propranolol without significant improvement in headache - has follow up scheduled with neurology 06/25/22: Brain MRI -> normal. 06/07/2022: Near continuous headache with varying intensity since August 2021; will check brain MRI. Also start propanolol for prevention. Already on Topamax. Took Depakote for mood disorder in the past but this caused LFT changes. Irritable bowel syndrome wit h both constipation and diarrhea 08/16/2021 Overview (08/11/2025): 09/05 ongoing abdominal pain 07/06: Visit to GI, felt to have IBS STONE (obstructive sleep apnea) 03/09/2021 Overview (08/11/2025): 02/05: has not received CPAP yet - missed appointment with sleep department last month - will reach out to coordinate CPAP 09/05 needs follow up to check on cpap 2020/Mild obstructive sleep apnea, AHI 9.1 (CMS 4%), AHI 16 (AASM) and vera O2 saturation 86%. Mild intermittent asthma without complication Overview (08/11/2025): 02/05: rare use of inhalers 09/05 asking for refills on inhalers 01/20/2019 Using flovent bid and albuterol twice a week. Schizoaffective disorder Assessment & Plan (08/05/2025 12:38 AM EST): Continue home meds GERD (gastroesophageal reflux disease) Bipolar 1 disorder Assessment & Plan (08/05/2025 12:38 AM EST): Continue home meds Encounters Date Type Department Care Team Description 09/07/2025 2:05 PM EST - 09/08/2025 6:07 PM EST Hospital Encounter [facility] - Emergency Department [address] [place] [address] Pete Bowman MD Donahue, MD King Cotton, MD Dm Antoine Ricky, MD Suicidal ideation (Primary Dx); Influenza A; Schizoaffective disorder, unspecified type (CMS/HCC) [F25.9] Discharge Disposition: Psychiatric Facility 09/07/2025 Travel 09/06/2025 8:53 AM EST Anesthesia Event [facility] [address] [place] [phone] Twyla KyaraPEGGY 09/06/2025 Procedure [facility] [address] [place] [phone] 09/01/2025 4:28 PM EST - 09/01/2025 7:18 PM EST Emergency [facility] - Emergency Department [address] [place] [phone] Ryan Dominguez MD Acute left-sided low back pain with bilateral sciatica (Primary Dx); Nausea Discharge Disposition: Home / Self Care 08/30/2025 3:10 PM EST Office Visit [address] [address] Tamica Jackson MD Non-recurrent acute suppurative otitis media of both ears without spontaneous rupture of tympanic membranes (Primary Dx) 08/11/2025 3:57 PM EST - 08/11/2025 6:00 PM EST Emergency [facility] - Emergency Department [address] [place] [phone] Non-cardiac chest pain (Primary Dx); Lightheadedness Discharge Disposition: Home / Self Care 08/11/2025 Travel 08/05/2025 Procedure [facility] [address] [place] [phone] 08/05/2025 Travel 08/04/2025 5:18 PM EST - 08/06/2025 12:13 PM EST Hospital Encounter [facility] - [place] [address] [place] [phone] Cisco Dno MD Walsh, MD Bobby Rehman Roberto, MD Patel, Vivek, MD Nugent, Monique, MD MPH Dysequilibrium (Primary Dx); Generalized abdominal pain; Nonintractable headache, unspecified chronicity pattern, unspecified headache type; Chest pain, unspecified type Discharge Disposition: Home / Self Care 08/04/2025 Travel 08/03/2025 3:45 PM EST Office Visit [address] [address] Varinder Novak PA-C Abdominal pain, unspecified abdominal location (Primary Dx); Dizziness 07/20/2025 7:42 PM EST - 07/21/2025 5:27 PM EST Emergency [facility] Emergency Department [address] [place] [phone] Raj[facility] Miller Brown Allison E, MD Nausea (Primary Dx) Discharge Disposition: Home / Self Care 07/19/2025 5:36 PM EST - 07/19/2025 10:03 PM EST Emergency [facility] Emergency Department [address] [place] [phone] Ruthy Bhatt MD Nausea and vomiting, unspecified vomiting type (Primary Dx) Discharge Disposition: Home / Self Care 07/19/2025 1:40 PM EST Office Visit [address] [address] Hussein Hitchcock MD Acute cough (Primary Dx); Abdominal pain, unspecified abdominal location 07/19/2025 Travel 07/02/2025 12:54 AM EDT - 07/02/2025 5:58 AM EDT Emergency [facility] Emergency Department [address] [place] [phone] Jasmeet Bhatt MD Chest pain, unspecified type (Primary Dx); Abdominal pain, generalized Discharge Disposition: Home / Self Care 07/02/2025 Travel 06/30/2025 5:04 PM EDT - 06/30/2025 11:18 PM EDT Emergency [facility] Emergency Department [address] [place] [phone] Rony Plasencia MD Corrigan, Daniel, MD Chest pain, unspecified type (Primary Dx) Discharge Disposition: Home / Self Care 06/30/2025 Travel 06/13/2025 12:40 PM EDT Office Visit [address] [address] Varinder Novak PA-C Left upper quadrant abdominal pain (Primary Dx); Sore throat from Last 3 Months Social History Tobacco [...] PM EDT Sexual Orientation Not on file Last Filed Vital Signs Vital Sign Reading Time Taken Comments Blood Pressure 124/78 09/08/2025 6:04 PM EST Pulse 78 09/08/2025 6:04 PM EST Temperature 36.9 C (98.4 F) 09/08/2025 6:04 PM EST Respiratory Rate 15 09/08/2025 6:04 PM EST Oxygen Saturation 99% 09/08/2025 6:04 PM EST Inhaled Oxygen Concentration - - Weight 140.6 kg (310 lb) 09/01/2025 4:15 PM EST Height 167.6 cm (5' 6 ) 08/05/2025 1:17 AM EST Body Mass Index 50.04 08/05/2025 1:17 AM EST Plan of Treatment Health Maintenance Due Date Last Done Comments [facility] Topic HIV Screening 1989 [facility] Topic Tdap Vaccine (1 - Tdap) 2008 [facility] Topic Lipid Profile 05/07/2026 05/07/2025, [facility] Topic Shingrix (1 of 2) 2039 [facility] Topic Hepatitis C Screening Completed 02/12/2023, 05/24/2021 [facility] Topic Influenza (Flu) Seasonal Completed 07/27/2025, 07/17/2024, 08/13/2022, Additional history exists [facility] AMB RSV (under 20 months) Aged Out No longer eligible based on patient's age to complete this topic [facility] Topic HIB Vaccines Aged Out No longer eligible based on patient's age to complete this topic [facility] Topic HPV Vaccines (No Doses Required) Completed Procedures Procedure Name Priority Date/Time Associated Diagnosis Comments ECG 12-LEAD STAT 09/08/2025 2:23 PM EST ETHANOL STAT 09/07/2025 4:44 PM EST SALICYLATE LEVEL STAT 09/07/2025 4:44 PM EST ACETAMINOPHEN LEVEL STAT 09/07/2025 4 :44 PM EST COMPREHENSIVE METABOLIC PANEL STAT 09/07/2025 4:44 PM EST CBC WITH AUTO DIFFERENTIAL STAT 09/07/2025 4:44 PM EST XR CHEST 2 VW STAT 09/07/2025 4:05 PM EST URINALYSIS WITH REFLEX STAT 09/07/2025 2:45 PM EST URINALYSIS WITH REFLEX STAT 09/07/2025 2:45 PM EST URINE DRUGS OF ABUSE SCREEN STAT 09/07/2025 2:45 PM EST RESPIRATORY SYNCYTIAL VIRUS PCR Add-On 09/07/2025 2:45 PM EST FLU PCR STAT Add-on 09/07/2025 2:45 PM EST EXTRA URINE CULTURE TUBE STAT 09/07/2025 2:45 PM EST COVID-19 ([facility]) STAT 09/07/2025 2:45 PM EST URINALYSIS WITH REFLEX STAT 09/01/2025 5:21 PM EST URINALYSIS WITH REFLEX STAT 09/01/2025 5:21 PM EST LIPASE STAT 09/01/2025 5:21 PM EST TSH W/REFLEX TO FT4 STAT 09/01/2025 5 :21 PM EST COMPREHENSIVE METABOLIC PANEL STAT 09/01/2025 5:21 PM EST CBC WITH AUTO DIFFERENTIAL STAT 09/01/2025 5:21 PM EST EXTRA URINE CULTURE TUBE STAT 09/01/2025 5:21 PM EST ECG 12-LEAD STAT 08/11/2025 4:05 PM EST MRI BRAIN W WO CONTRAST MARLY 08/06/2025 3:[address] ABDOMEN PELVIS W CONTRAST STAT 08/05/2025 3:36 PM EST MAGNESIUM Routine 08/05/2025 6:05 AM EST BASIC METABOLIC PANEL Routine 08/05/2025 6:05 AM EST CBC WITH AUTO DIFFERENTIAL Routine 08/05/2025 6:05 AM EST TROPONIN T- HS GEN5 STAT 08/04/2025 1 1:46 PM EST XR CHEST 2 VW STAT 08/04/2025 9:[address] HEAD WO CONTRAST STAT 08/04/2025 9 :14 PM EST D-DIMER, QUANTITATIVE STAT 08/04/2025 8:59 PM EST TROPONIN T- HS GEN5 STAT 08/04/2025 8 :59 PM EST ECG 12-LEAD STAT 08/04/2025 7:49 PM EST TROPONIN T- HS GEN5 STAT Add-on 08/04/2025 6 :31 PM EST URINALYSIS WITH REFLEX STAT 08/04/2025 6:31 PM EST CBC WITH AUTO DIFFERENTIAL STAT 08/04/2025 6:31 PM EST LIPASE STAT 08/04/2025 6:31 PM EST COMPREHENSIVE METABOLIC PANEL STAT 08/04/2025 6:31 PM EST URINALYSIS WITH REFLEX STAT 08/04/2025 6:31 PM EST EXTRA URINE CULTURE TUBE STAT 08/04/2025 6:31 PM EST XR CHEST 2 VW STAT 07/21/2025 2:32 AM EST TROPONIN T- HS GEN5 STAT 07/20/2025 1 0:46 PM EST URINALYSIS WITH REFLEX STAT 07/20/2025 8:02 PM EST URINALYSIS WITH REFLEX STAT 07/20/2025 8:02 PM EST EXTRA URINE CULTURE TUBE STAT 07/20/2025 8:02 PM EST LIMITED RESPIRATORY VIRAL PANEL H - COVID/FLU/RSV STAT 07/20/2025 8:02 PM EST LIPASE STAT 07/20/2025 8:01 PM EST TROPONIN T- HS GEN5 STAT 07/20/2025 8 :01 PM EST COMPREHENSIVE METABOLIC PANEL STAT 07/20/2025 8:01 PM EST CBC WITH AUTO DIFFERENTIAL STAT 07/20/2025 8:01 PM EST ECG 12-LEAD Routine 07/20/2025 7:[address] ABDOMEN PELVIS W CONTRAST STAT 07/19/2025 8:24 PM EST TROPONIN T- HS GEN5 STAT 07/19/2025 7 :19 PM EST ECG 12-LEAD STAT 07/19/2025 6:54 PM EST URINALYSIS WITH REFLEX STAT 07/19/2025 4:43 PM EST URINALYSIS WITH REFLEX STAT 07/19/2025 4:43 PM EST EXTRA URINE CULTURE TUBE STAT 07/19/2025 4:43 PM EST TROPONIN T- HS GEN5 STAT Add-on 07/19/2025 4 :35 PM EST CBC WITH AUTO DIFFERENTIAL STAT 07/19/2025 4:35 PM EST LIPASE STAT 07/19/2025 4:35 PM EST COMPREHENSIVE METABOLIC PANEL STAT 07/19/2025 4:35 PM EST POCT RAPID INFLUENZA Routine 07/19/2025 2:30 PM EST Acute cough POCT RAPID STREP Routine 07/19/2025 2:29 PM EST Acute cough POCT COVID Routine 07/19/2025 2:29 PM EST Acute cough XR CHEST 2 VW STAT 07/02/2025 4:37 AM EDT TROPONIN T- HS GEN5 STAT 07/02/2025 2 :25 AM EDT LIPASE STAT 07/02/2025 2:25 AM EDT COMPREHENSIVE METABOLIC PANEL STAT 07/02/2025 2:25 AM EDT CBC WITH AUTO DIFFERENTIAL STAT 07/02/2025 2:25 AM EDT ECG 12-LEAD STAT 07/02/2025 1:53 AM EDT LIPASE Add-On 06/30/2025 9:43 PM EDT TROPONIN T- HS GEN5 STAT 06/30/2025 9 :43 PM EDT TROPONIN T- HS GEN5 STAT 06/30/2025 8 :19 PM EDT XR CHEST 2 VW STAT 06/30/2025 8:00 PM EDT D-DIMER, QUANTITATIVE STAT 06/30/2025 6:22 PM EDT TROPONIN T- HS GEN5 STAT 06/30/2025 6 :22 PM EDT COMPREHENSIVE METABOLIC PANEL STAT 06/30/2025 6:22 PM EDT CBC WITH AUTO DIFFERENTIAL STAT 06/30/2025 6:22 PM EDT ECG 12-LEAD STAT 06/30/2025 5:16 PM EDT POCT RAPID STREP Routine 06/13/2025 1:03 PM EDT Sore throat from Last 3 Months Results * (ABNORMAL) CBC with auto differential (09/07/2025 4:44 PM EST) Only the most recent of8 resultswithin the time period is included. WBC 6.7 4.5 - 10.8 10*3 l 09/07/2025 4:55 PM [facility] RBC 5.05 4.70 - 6.10 10*6 l 09/07/2025 4:55 PM [facility] Hemoglobin 13.5(L) 14.0 - 18.0 g/dL 09/07/2025 4:55 PM [facility] Hematocrit 40.9(L) 42.0 - 52.0 % 09/07/2025 4:55 PM [facility] MCV 81 80 - 95 fL 09/07/2025 4:55 PM [facility] MCH 26.7 25.4 - 39.0 pg 09/07/2025 4:55 PM [facility] MCHC 33.0 31.0 - 37.0 g/dL 09/07/2025 4:55 PM [facility] RDW 13.7 11.5 - 14.5 % 09/07/2025 4:55 PM [facility] Platelets 340 150 - 450 10*3 l 09/07/2025 4:55 PM [facility] MPV 9.2 7.0 - 11.0 fL 09/07/2025 4:55 PM [facility] Neutrophils % 45.4 40.0 - 80.0 % 09/07/2025 4:55 PM [facility] Lymphocytes % 38.5 20.0 - 40.0 % 09/07/2025 4:55 PM [facility] Monocytes % 12.7(H) 2.0 - 10.0 % 09/07/2025 4:55 PM [facility] Eosinophils % 2.2 1.0 - 6.0 % 09/07/2025 4:55 PM [facility] Basophils % 0.9 0.0 - 1.0 % 09/07/2025 4:55 PM [facility] Immature Granulocyte % 0.3 0.0 - 0.9 % 09/07/2025 4:55 PM [facility] Neutrophils Absolute 3.03 2.00 - 7.00 K/mm3 09/07/2025 4:55 PM [facility] Absolute Immature Granulocyte 0.02 0.00 - 0.09 K/mm3 09/07/2025 4:55 PM [facility] Lymphocytes Absolute 2.57 1.00 - 3.00 K/mm3 09/07/2025 4:55 PM [facility] Monocytes Absolute 0.85 0.20 - 1.00 K/mm3 09/07/2025 4:55 PM [facility] Eosinophils Absolute 0.15 0.00 - 0.50 K/mm3 09/07/2025 4:55 PM [facility] Basophils Absolute 0.06 0.00 - 0.10 K/mm3 09/07/2025 4:55 PM [facility] Blood Venous blood / Unknown Venipuncture / Unknown 09/07/2025 4:44 PM EST 09/07/2025 4:49 PM EST Pete Bowman MD LAB BLOOD ORDERABLES Final Result Performing Organization Address City/[facility]/ZIP Co de Phone Number [facility] [address] [place], [place] [phone] * Ethanol (09/07/2025 4:44 PM EST) Ethanol <=10 0 - 10 mg/dL 09/07/2025 5:21 PM EST [facility] Comment:NONE DETECTED: Resul t <10 should be interpreted as NONE DETECTED. Blood Venous blood / Unknown Venipuncture / Unknown 09/07/2025 4:44 PM EST 09/07/2025 4:49 PM EST Pete Bowman MD LAB BLOOD ORDERABLES Final Result Performing Organization Address [facility] Co de Phone Number [facility] [address] [place], [place] [phone] * Acetaminophen level (09/07/2025 4:44 PM EST) Acetaminophen Level <5.1 <15.0 ug/mL 09/07/2025 5:21 PM EST [facility] Blood Venous blood / Unknown Venipuncture / Unknown 09/07/2025 4:44 PM EST 09/07/2025 4:49 PM EST Pete Bowman MD LAB BLOOD ORDERABLES Final Result Performing Organization Address City/[facility]/ZIP Co de Phone Number [facility] [address] [place] [address], [place] [phone] * Salicylate level (09/07/2025 4:44 PM EST) Salicylate Level <=3.0 3.0 - 30.0 mg/dL 09/07/2025 5:21 PM EST [facility] Blood Venous blood / Unknown Venipuncture / Unknown 09/07/2025 4:44 PM EST 09/07/2025 4:49 PM EST us Pete Bowman MD LAB BLOOD ORDERABLES Final Result [facility] [address] [place] [address], [place] [phone] * (ABNORMAL) Comprehensive metabolic panel (09/07/2025 4:44 PM EST) Only the most recent of7 resultswithin the time period is included. Glucose 85 70 - 100 mg/dL 09/07/2025 5:21 PM [facility] BUN 5(L) 6 - 19 mg/dL 09/07/2025 5:21 PM [facility] Creatinine 0.7 0.4 - 1.2 mg/dL 09/07/2025 5:21 PM [facility] eGFR >60.00 >60.00 mL/min/1.7 3m*2 09/07/2025 5:21 PM [facility] Sodium 141 135 - 145 mmol/L 09/07/2025 5:21 PM [facility] Potassium 3.5 3.4 - 5.1 mmol/L 09/07/2025 5:21 PM [facility] Chloride 103 98 - 109 mmol/L 09/07/2025 5:21 PM [facility] CO2 22 22 - 29 mmol/L 09/07/2025 5:21 PM [facility] Anion Gap 16 6 - 16 mmol/L 09/07/2025 5:21 PM [facility] Calcium 9.2 8.5 - 10.5 mg/dL 09/07/2025 5:21 PM [facility] Total Bilirubin 0.4 0.2 - 1.2 mg/dL 09/07/2025 5:21 PM [facility] Alkaline Phosphatase 94 40 - 129 U/L 09/07/2025 5:21 PM [facility] ALT (SGPT) 21 0 - 40 U/L 09/07/2025 5:21 PM [facility] AST 24 0 - 37 U/L 09/07/2025 5:21 PM [facility] Total Protein 7.7 6.0 - 8.5 g/dL 09/07/2025 5:21 PM EST [facility] Albumin 4.7 3.3 - 5.2 g/dL 09/07/2025 5:21 PM EST [facility] Estimated Creatinine Clearance 195.1 mL/min 09/07/2025 5:21 PM EST [facility] Blood Venous blood / Unknown Venipuncture / Unknown 09/07/2025 4:44 PM EST 09/07/2025 4:49 PM EST Pete Bowman MD LAB BLOOD ORDERABLES Final Result [facility] [address] [place] [address], * X-ray chest 2 views (09/07/2025 4:05 PM EST) Only the most recent of5 resultswithin the time period is included. Anatomical Region Laterality Modality Body Computed Radiogr [...] is nopleural effusion. IMPRESSION: No acute disease. us Pete Bowman MD IMG XR PROCEDURES Final Res ult * Respiratory Syncytial Virus PCR (09/07/2025 2:45 PM EST) Pathologist [facility] Respiratory Syncytial Virus PCR Negative Negative LTT PANTHER ANALYZER-DP H 09/07/2025 6:31 PM EST [facility] Swab (Nasopharynx) Non-blood Collection / Unknown 09/07/2025 2:45 PM EST 09/07/2025 2:55 PM EST Pete Bowman MD LAB MICROBIOLOGY - GENERAL ORDERABLES Final Result [facility] [address] [place] [address], [place] [phone] * COVID-19 ([facility]) (09/07/2025 2:45 PM EST) Pathologist [facility] COVID-19 ([facility]) PCR Negative Negative LTT PANTHER ANALYZER-DP H 09/07/2025 6:31 PM [facility] Swab (Nasopharynx) Non-blood Collection / Unknown 09/07/2025 2:45 PM EST 09/07/2025 2:55 PM EST Pete Bowman MD LAB MICROBIOLOGY - GENERAL ORDERABLES Final Result Performing Organization Address City/[facility]/ZIP Co de Phone Number [facility] [address] [place] [address], [place] [phone] * (ABNORMAL) Urinalysis with reflex (09/07/2025 2:45 PM EST) Only the most recent of5 resultswithin the time period is included. Pathologist [facility] Color, Urine Colorless Colorless, Yellow 09/07/2025 3:16 PM [facility] Clarity, Urine Clear Clear 09/07/2025 3:16 PM [facility] Specific [place], Urine 1.001(L) 1.002 - 1.030 09/07/2025 3:16 PM [facility] pH, Urine 6.5 5.0 - 8.0 09/07/2025 3:16 PM [facility] Leukocytes, Urine Negative Negative 09/07/2025 3:16 PM [facility] Nitrite, Urine Negative Negative 09/07/2025 3:16 PM [facility] Protein, Urine Negative Negative 09/07/2025 3:16 PM [facility] Glucose, Urine Negative Negative 09/07/2025 3:16 PM [facility] Ketones, Urine Negative Negative 09/07/2025 3:16 PM [facility] Bilirubin, Urine Negative Negative 09/07/2025 3:16 PM [facility] Blood, Urine Negative Negative 09/07/2025 3:16 PM [facility] Urine Urine specimen obtained by clean catch procedure / Unknown Non-blood Collection / Unknown 09/07/2025 2:45 PM EST 09/07/2025 3:04 PM EST [facility] - 09/07/2025 3:16 PM EST Per protocol, no culture performed. For protocol inquiries or add-on testing, please call Infectious Disease at [phone] or [phone]. Pete Bowman MD LAB URINE ORDERABLES Final Result [facility] [address] [place] [address], [place] [phone] * Extra Urine Culture Tube (09/07/2025 2:45 PM EST) Only the most recent of5 resultswithin the time period is included. Extra Tube 09/07/2025 9:01 PM [facility] Comment:An Extra tube was co llected from this patient. Please follow add on workflow or contact the Laboratory if you wish to place orders on this specimen. Urine Urine specimen obtained by clean catch procedure / Unknown Non-blood Collection / Unknown 09/07/2025 2:45 PM EST 09/07/2025 2:55 PM EST Pete Bowman MD LAB MICROBIOLOGY - GENERAL ORDERABLES Final Result [facility] [facility] [address] [place] [address], [place] [phone] * Urine drugs of abuse screen (09/07/2025 2:45 PM EST) [facility] Amphetamines, Urine Screen None Detected None Detected 09/07/2025 3:29 PM [facility] Barbiturates, Urine Screen None Detected None Detected 09/07/2025 3:29 PM [facility] Benzodiazepines, Urine Screen None Detected None Detected 09/07/2025 3:29 PM [facility] Cocaine, Urine Screen None Detected None Detected 09/07/2025 3:29 PM [facility] Opiates, Urine Screen None Detected None Detected 09/07/2025 3:29 PM [facility] Cannabinoids (THC), Urine Screen None Detected None Detected 09/07/2025 3:29 PM [facility] Tricyclic Antidepressants, Urine Screen None Detected None Detected 09/07/2025 3:29 PM [facility] Fentanyl, Urine Screen None Detected None Detected 09/07/2025 3:29 PM [facility] Methadone, Urine Screen None Detected None Detected 09/07/2025 3:29 PM [facility] Oxycodone, Urine Screen None Detected None Detected 09/07/2025 3:29 PM [facility] Buprenorphine, Urine Screen None Detected None Detected 09/07/2025 3:29 PM [facility] Phencyclidine, Urine Screen None Detected None Detected 09/07/2025 3:29 PM [facility] Urine Urine specimen obtained by clean catch procedure / Unknown Non-blood Collection / Unknown 09/07/2025 2:45 PM EST 09/07/2025 2:56 PM [facility] - 09/07/2025 3:29 PM EST [...] ng/ml Buprenorphine 5 ng/ml Phencyclidine 25 ng/ml Pete Bowman MD LAB URINE ORDERABLES Final Result Performing Organization Address [facility]/ZIP Co de Phone Number [facility] [address] [place] [address], * (ABNORMAL) Flu PCR (09/07/2025 2:45 PM EST) Flu A by PCR Positive(A) Negative [facility] 09/07/2025 6:31 PM [facility] Flu B by PCR Negative Negative [facility] 09/07/2025 6:31 PM [facility] Swab (Nasopharynx) Non-blood Collection / Unknown 09/07/2025 2:45 PM EST 09/07/2025 2:55 PM EST Pete Bowman MD LAB MICROBIOLOGY - GENERAL ORDERABLES Final Result Performing Organization Address [facility]/ZIP Co de Phone Number [facility] [address] [place] [address], [place] [phone] * TSH with reflex to t4 (09/01/2025 5:21 PM EST) TSH 0.907 0.270 - 4.200 uIU/mL 09/01/2025 6:03 PM EST [facility] Blood Venous blood / Unknown Venipuncture / Unknown 09/01/2025 5:21 PM EST 09/01/2025 5:27 PM EST [facility] LAB BLOOD ORDERABLES Final Res ult [facility] [address] [place] [address], [place] [phone] * Lipase (09/01/2025 5:21 PM EST) Only the most recent of6 resultswithin the time period is included. Lipase 25 7 - 60 U/L 09/01/2025 5:58 PM EST [facility] Blood Venous blood / Unknown Venipuncture / Unknown 09/01/2025 5:21 PM EST 09/01/2025 5:27 PM EST [facility] LAB BLOOD ORDERABLES Final Res ult Performing Organization Address City/[facility]/ZIP Co de Phone Number [facility] [address] [place] [address], [place] [phone] * ECG (08/11/2025 4:05 PM EST) Only the most recent of6 resultswithin the time period is included. 08/11/2025 4:05 PM EST 08/12/2025 9:27 AM EST Impressions MUSE - 08/12/2025 9:27 AM EST Test Reason : Reason for Exam:->Dizziness Blood Pressure : */* mmHG Vent. Rate : 78 BPM Atrial Rate : 78 BPM P-R Int : 146 ms QRS Dur : 102 ms QT Int : 384 ms P-R-T Axes : 26 -23 22 degrees QTc Int : 437 ms Normal sinus rhythm Moderate voltage criteria for LVH, may be normal variant ( R in aVL , [place] product ) Borderline ECG When compared with ECG of 04-AUG-2025 19:49, No significant change was found Referred By: RYAN DOMINGUEZ Confirmed By: Dr. Keegan Schroeder Narrative Procedure Note Keegan Schroeder MD - 08/12/2025 IMPRESSION Test Reason : Reason for Exam:->Dizziness Blood Pressure : */* mmHG Vent. Rate : 78 BPM Atrial Rate : 78 BPM P-R Int : 146 ms QRS Dur : 102 ms QT Int : 384 ms P-R-T Axes : 26 -23 22 degrees QTc Int : 437 ms Normal sinus rhythm Moderate voltage criteria for LVH, may be normal variant ( R in aVL ,[place] product ) Borderline ECG When compared with ECG of 04-AUG-2025 19:49, No significant change was found Referred By: RYAN DOMINGUEZ Confirmed By: Dr. Keegan Schroeder us Ryan Dominguez MD ECG ORDERABLES Final Result MUSE * MRI brain with and without contrast per algorithm (08/06/2025 3:53 AM EST) Anatomical Region Laterality Modality Head and Neck Magnetic Resonan ce 08/05/2025 11:0 9 AM EST Impressions 08/06/2025 7:39 AM EST IMPRESSION: No acute intracranial abnormality or infarct. No mass or abnormal enhancement. A preliminary report was issued by [facility]. Agree with the interpretation; no significant discrepant findings. Narrative 08/06/2025 7:39 AM EST MRI BRAIN W WO CONTRAST INDICATION: Dizziness, vertigo, worsening headache TECHNIQUE: Multiplanar multisequence MR imaging of the brain performed prior to and following the administration of intravenous contrast. IV CONTRAST: gadoterate meglumine (DOTAREM) 30mL. COMPARISON: Head CT on 08/04/2025. FINDINGS: Brain parenchyma: No mass, mass effect, or midline shift. No intraparenchymal hemorrhage. Few small foci of T2/FLAIR hyperintensity in the subcortical white matter of the frontal lobes are nonspecific. The diffusion weighted images reveal no abnormal restrictive changes to suggest acute ischemia. No abnormal enhancement throughout the cerebral hemispheres or posterior fossa. Extra-axial spaces: No extra-axial fluid collections identified. No abnormal enhancement. Pituitary fossa: Unremarkable. Intracranial vascular flow voids: Present. Paranasal: Left maxillary mucous retention cyst. Mastoid air cells: Clear. Orbits: Included portions unremarkable. Cranium: Unremarkable. Procedure Note Gomez Stahl MD - 08/06/2025 MRI BRAIN W WO CONTRAST INDICATION: Dizziness, vertigo, worsening headache TECHNIQUE: Multiplanar multisequence MR imaging of the brain performedprior to and following the administration of intravenous contrast. IV CONTRAST: gadoterate meglumine (DOTAREM) 30mL. COMPARISON: Head CT on 08/04/2025. FINDINGS: Brain parenchyma: No mass, mass effect, or midline shift. Nointraparenchymal hemorrhage. Few small foci of T2/FLAIR hyperintensity in the subcortical white matterof the frontal lobes are nonspecific. The diffusion weighted images reveal no abnormalrestrictive changes to suggest acute ischemia. No abnormal enhancement throughout thecerebral hemispheres or posterior fossa. Extra-axial spaces: No extra-axial fluid collections identified. Noabnormal enhancement. Pituitary fossa: Unremarkable. Intracranial vascular flow voids: Present. Paranasal: Left maxillary mucous retention cyst. Mastoid air cells: Clear. Orbits: Included portions unremarkable. Cranium: Unremarkable. IMPRESSION: No acute intracranial abnormality or infarct. No mass or abnormalenhancement. A preliminary report was issued by [facility]. Agree with the interpretation; nosignificant discrepant findings. Malathi Harrington MD MPH IMG MRI PROCEDURES Final R esult * CT abdomen pelvis with contrast per algorithm (08/05/2025 3:36 PM EST) Only the most recent of2 resultswithin the time period is included. Anatomical Region Laterality Modality Body Computed Tomogra phy 08/05/2025 11:1 0 AM EST Impressions 08/05/2025 3:53 PM EST IMPRESSION: Evaluation is somewhat limited due to motion artifact and body habitus. No definite acute abdominopelvic process. Narrative 08/05/2025 3:[address] ABDOMEN PELVIS W CONTRAST History: LLQ abdominal pain Technique: Spiral acquisition was performed. Multiplanar reformats were created. Iterative reconstruction technique was utilized for radiation dose reduction. Contrast: iohexol (OMNIPAQUE) 350 MG/ML 100mL Comparison: 07/19/2025 Findings: Evaluation is somewhat limited due to motion artifact and body habitus. Lower Chest: Included lung bases are unremarkable. Liver: No suspicious liver lesions. Biliary: No biliary dilation. Pancreas: No ductal dilation or evidence of lesion. Spleen: Normal. Adrenal glands: Normal. Kidneys/Ureters/Bladder: No hydronephrosis or suspicious renal lesions. Decompressed bladder. Bowel: Decompressed, suboptimally evaluated stomach. No small bowel dilation. No definite focal colonic mural thickening. Mild colonic diverticulosis. Unremarkable TI and appendix. Peritoneum/Retroperitoneum: No free fluid. Vasculature: Normal caliber abdominal aorta. Lymph nodes: No lymphadenopathy. Pelvis: No free fluid. Small fat-containing indirect left inguinal hernia. Bones and soft tissues: Moderate degenerative change of the spine. Procedure Note Dae Gautam MD - 08/05/2025 CT ABDOMEN PELVIS W CONTRAST History: LLQ abdominal pain Technique: Spiral acquisition was performed. Multiplanar reformats werecreated. Iterative reconstruction technique was utilized for radiation dose reduction. Contrast: iohexol (OMNIPAQUE) 350 MG/ML 100mL Comparison: 07/19/2025 Findings: Evaluation is somewhat limited due to motion artifact and body habitus. Lower Chest: Included lung bases are unremarkable. Liver: No suspicious liver lesions. Biliary: No biliary dilation. Pancreas: No ductal dilation or evidence of lesion. Spleen: Normal. Adrenal glands: Normal. Kidneys/Ureters/Bladder: No hydronephrosis or suspicious renal lesions.Decompressed bladder. Bowel: Decompressed, suboptimally evaluated stomach. No small boweldilation. No definite focal colonic mural thickening. Mild colonic diverticulosis. UnremarkableTI and appendix. Peritoneum/Retroperitoneum: No free fluid. Vasculature: Normal caliber abdominal aorta. Lymph nodes: No lymphadenopathy. Pelvis: No free fluid. Small fat-containing indirect left inguinalhernia. Bones and soft tissues: Moderate degenerative change of the spine. IMPRESSION: Evaluation is somewhat limited due to motion artifact and body habitus. No definite acute abdominopelvic process. Malathi Harrington MD MPH IMG CT PROCEDURES Final Re sult * Magnesium (08/05/2025 6:05 AM EST) Magnesium 2.1 1.6 - 2.6 mg/dL 08/05/2025 7:10 AM [facility] Blood Venous blood / Unknown Venipuncture / Unknown 08/05/2025 6:05 AM EST 08/05/2025 6:38 AM EST Lauri Rosales MD LAB BLOOD ORDERABLES Final Resu lt [facility] [address] [place] [address], [place] [phone] * (ABNORMAL) Basic Metabolic Panel (08/05/2025 6:05 AM EST) Glucose 104(H) 70 - 100 mg/dL 08/05/2025 7:10 AM [facility] BUN 8 6 - 19 mg/dL 08/05/2025 7:10 AM [facility] Creatinine 0.8 0.4 - 1.2 mg/dL 08/05/2025 7:10 AM [facility] eGFR >60.00 >60.00 mL/min/1.7 3m*2 08/05/2025 7:10 AM [facility] Sodium 137 135 - 145 mmol/L 08/05/2025 7:10 AM [facility] Potassium 3.8 3.4 - 5.1 mmol/L 08/05/2025 7:10 AM [facility] Chloride 99 98 - 109 mmol/L 08/05/2025 7:10 AM [facility] CO2 27 22 - 29 mmol/L 08/05/2025 7:10 AM [facility] Anion Gap 11 6 - 16 mmol/L 08/05/2025 7:10 AM [facility] Calcium 9.4 8.5 - 10.5 mg/dL 08/05/2025 7:10 AM [facility] Estimated Creatinine Clearance 170.3 mL/min 08/05/2025 7:10 AM [facility] Blood Venous blood / Unknown Venipuncture / Unknown 08/05/2025 6:05 AM EST 08/05/2025 6:38 AM EST Lauri Rosales MD LAB BLOOD ORDERABLES Final Resu lt [facility] [address] [place] [address], * Troponin T- hs Gen5 (08/04/2025 11:46 PM EST) Only the most recent of11 resultswithin the time period is included. Troponin T- hs Gen5 <=6 <6 - 12 ng/L 08/05/2025 12:24 AM EST [facility] Blood Venous blood / Unknown Venipuncture / Unknown 08/04/2025 11:46 PM EST 08/04/2025 11:58 PM EST Cisco Don MD LAB BLOOD ORDERABLES Final Result Performing Organization Address [facility]/ZIP Co de Phone Number [facility] [address] [place] [address], * CT head without contrast (08/04/2025 9:14 PM EST) Anatomical Region Laterality Modality Head and Neck Computed Tomogra phy 08/04/2025 8:44 PM EST Impressions 08/04/2025 9:34 PM EST IMPRESSION: No acute intracranial findings on noncontrast enhanced head CT. If clinical signs or symptoms persist, advise further evaluation with brain MRI. Recommendations in this report were tagged in [facility] for follow up. Narrative 08/04/2025 9:34 PM EST COMPUTED TOMOGRAPHY OF THE BRAIN WITHOUT CONTRAST TECHNIQUE: Contiguous axial CT sections were obtained from the skull base to the vertex without administration of intravenous contrast. Iterative reconstruction technique was utilized for radiation dose reduction. HISTORY: New onset severe headache. Disequilibrium. COMPARISON: 03/06/2024 FINDINGS: There is no evidence of intraparenchymal or extra-axial hemorrhage, mass lesion or acute vascular territory infarct. Magnetic resonance imaging with diffusion sequencing would be more sensitive for detection of the latter. This study was not designed for detection of intracranial vascular malformation or aneurysm. If this is of clinical concern, magnetic resonance or computed tomographic angiography would be the studies of choice for detection and/or characterization. The ventricles, sulci, and cisterns are normal for age. There is moderate polypoid mucosal thickening of the left maxillary sinus. Otherwise, visualized orbits and paranasal sinuses are unremarkable for age. There is no displaced calvarial fracture. Procedure Note Edgar Gabriel MD - 08/04/2025 COMPUTED TOMOGRAPHY OF THE BRAIN WITHOUT CONTRAST TECHNIQUE: Contiguous axial CT sections were obtained from the skull base to thevertex without administration of intravenous contrast. Iterative reconstruction techniquewas utilized for radiation dose reduction. HISTORY: New onset severe headache. Disequilibrium. COMPARISON: 03/06/2024 FINDINGS: There is no evidence of intraparenchymal or extra-axial hemorrhage, masslesion or acute vascular territory infarct. Magnetic resonance imaging with diffusionsequencing would be more sensitive for detection of the latter. This study was not designed for detection of intracranial vascularmalformation or aneurysm. If this is of clinical concern, magnetic resonance or computedtomographic angiography would be the studies of choice for detection and/orcharacterization. The ventricles, sulci, and cisterns are normal for age. There is moderatepolypoid mucosal thickening of the left maxillary sinus. Otherwise, visualized orbits andparanasal sinuses are unremarkable for age. There is no displaced calvarial fracture. IMPRESSION: No acute intracranial findings on noncontrast enhanced head CT. If clinical signs or symptoms persist, advise further evaluation withbrain MRI. Recommendations in this report were tagged in [employer] for follow up. Cisco Don MD IM CT PROCEDURES Final Re sult * D-Dimer (08/04/2025 8:59 PM EST) Only the most recent of2 resultswithin the time period is included. D-Dimer, Quant <0.27 <=0.50 ug/mL FEU 08/04/2025 9:43 PM [facility] Comment: Values less than 0.5 ug/mL can be utilized to exclude DVT/PE following appropriate clinical risk stratification. For patients 50 years of age or older, the application of age-adjusted cut-off values for D-dimer may increase the specificity without significant effect on sensitivity. The literature recommended age-adjusted cut-off is: Age in years x 0.01 Blood Venous blood / Unknown Venipuncture / Unknown 08/04/2025 8:59 PM EST 08/04/2025 9:07 PM EST Cisco Don MD LAB BLOOD ORDERABLES Final Result Performing Organization Address City/[facility]/ZIP Co de Phone Number [facility] [address] [place] [address], * Limited Resp. Viral Panel (07/20/2025 8:02 PM EST) [place] [id number] ([id number]) PCR Negative Negative [facility] 07/20/2025 10:54 PM [facility] Flu A by PCR Negative Negative [facility]-DP H 07/20/2025 10:54 PM [facility] Flu B by PCR Negative Negative [facility] 07/20/2025 10:54 PM [facility] Respiratory Syncytial Virus PCR Negative Negative [facility] 07/20/2025 10:54 PM [facility] Swab (Nasopharynx) Non-blood Collection / Unknown 07/20/2025 8:02 PM EST 07/20/2025 8:21 PM EST Bassam DUARTE LAB MICROBIOLOGY - GENERAL ORDERABLES Final Result Performing Organization Address City/[facility]/ZIP Co de Phone Number [facility] [address] [place] [address], [place] [phone] * POCT Rapid Influenza (07/19/2025 2:30 PM EST) POCT Influenza A Negative Negative POCT Influenza B Negative Negative Swab (Nares) 07/19/2025 2:30 PM EST us Hussein Hitchcock MD POINT OF CARE TEST ORDERABL ES Final Result * POCT COVID (07/19/2025 2:29 PM EST) POCT COVID Negative Negative Swab (Nares) 07/19/2025 2:29 PM EST us Hussein Hitchcock MD POINT OF CARE TEST ORDERABL ES Final Result * POCT Rapid Strep (07/19/2025 2:29 PM EST) Only the most recent of2 resultswithin the time period is included. POCT Rapid Strep A Negative Negative Swab Specimen from throat / Unknown 07/19/2025 2:29 PM EST us Hussein Hitchcock MD POINT OF CARE TEST ORDERABL ES Final Result from Last 3 Months Insurance [facility] MEDICARE PART A & B Advance Directives For more information, please contact: [phone] * Full Code (Latest Code Status on File) Date Activated Date Inactivated Comments 08/05/2025 12:05 AM 08/06/2025 4:13 PM Question Answer Comments Cardiopulmonary Resuscitatio n: for a patient in cardiac or respiratory arrest (Full Code = Attempt Resuscitation, DNR = Do not attempt resuscitation): Full Code Ventilation: for a patient in respiratory distre ss: Intubate and Ventilate * Full Code Date Activated Date Inactivated Comments 10/10/2023 8:54 AM 10/11/2023 9:23 PM Question Answer Comments Cardiopulmonary Resuscitatio n: for a patient in cardiac or respiratory arrest (Full Code = Attempt Resuscitation, DNR = Do not attempt resuscitation): Full Code Ventilation: for a patient in respiratory distre ss: Intubate and Ventilate * Full Code Date Activated Date Inactivated Comments 03/23/2023 4:13 AM 03/24/2023 4:36 PM Question Answer Comments Cardiopulmonary Resuscitatio n: for a patient in cardiac or respiratory arrest (Full Code = Attempt Resuscitation, DNR = Do not attempt resuscitation): Full Code Ventilation: for a patient in respiratory distre ss: Intubate and Ventilate Care Teams Genetic Counsellor Relationship Specialty Start Date End Date Ainsley Calloway NP [address] [place] [address] PCP - General Family Medicine 02/06/25
--- OUTSIDE RECORDS SUMMARY | 2025-09-08 20:48 | XMS_ITS | Encounter Summary ---
Author Organization [facility] Address [address] [place] [address] Phone Care Team Providers Care Information Resource Consultant Name Role Phone Pcp, Unknown Primary Care Provider Unavailabl e Encounter Details Date Type Department Care Team (Late st Contact Info) Description 09/06[facility] [address] [place] [address] Social History Tobacco Use Types Packs/Day Years [...] on file Sexual Orientation Not on file documented as of this encounter Plan of Treatment Not on file documented as of this encounter Visit Diagnoses Not on filedocumented in this encounter Care Teams Information Resource Consultant Relationship Specialty Start Date End Date Pcp, Unknown PCP - General 07/27/25 documented as of this encounter Additional Source Comments The information contained in this document represents components of the legal health record. It is not the complete legal health record.[facility]
--- OUTSIDE RECORDS SUMMARY | 2025-09-08 20:48 | XMS_ITS | Encounter Summary ---
Author Organization [facility] Address [address] [place] [address] Phone Care Team Providers Care Radio News Writer Name Role Phone Ainsley Calloway NP Primary Care Provider Encounter Details Date Type Department Care Team (Late st Contact Info) Description 09/06/2025 Procedure Pass [facility] [address] [place] [address] Social History Tobacco Use Types [...] Date Last Indicated Resolved Time Covid Possible 09/07/2025 09/07/2025 09/07/2025 6: 31 PM EST Influenza/TEJAS Rule-Out 09/07/2025 09/07/202509/07 6:31 PM EST documented as of this encounter Care Teams Radio News Writer Relationship Specialty Start Date End Date Ainsley Calloway NP [address] [place] [address] PCP - General Family Medicine 02/06/25 documented as of this encounter
--- OUTSIDE RECORDS SUMMARY | 2025-09-08 20:48 | XMS_ITS | Encounter Summary ---
Author Organization [facility] Address [address] [place] [address] Phone Care Team Providers Care Top Cutter Name Role Phone Ainsley Calloway NP Primary Care Provider [phone] Encounter Details Date Type Department Care Team (Late st Contact Info) Description 08/05/2025 Procedure Pass [facility] [address] [place] [address] Social History Tobacco Use Types [...] documented as of this encounter Care Teams Top Cutter Relationship Specialty Start Date End Date Ainsley Calloway NP [address] [place] [address] PCP - General Family Medicine 02/06/25 documented as of this encounter
--- OUTSIDE RECORDS SUMMARY | 2025-09-08 20:48 | XMS_ITS | Encounter Summary ---
Author Organization [facility] Address [address] [place] [address] Phone Care Team Providers Care It Telecom Technician Name Role Phone Ainsley Calloway NP Primary Care Provider [phone] Encounter Details Date Type Department Care Team (Late st Contact Info) Description 10/25/2023 Scanned Document [facility] [address] [place] [address] Collin Weller MD [address] [place] [address] [address] [place] [address] <No scans attached> Social History Tobacco Use Types Packs/Day Years [...] documented as of this encounter Care Teams It Telecom Technician Relationship Specialty Start Date End Date Ainsley Calloway NP [address] [place] [address] PCP - General Family Medicine 02/06/25 documented as of this encounter
--- OUTSIDE RECORDS SUMMARY | 2025-09-08 20:48 | XMS_ITS | Encounter Summary ---
[facility] Address [address] [place] [address] Phone Care Team Providers Care Rubber Cutting Machine Tender Name Role Phone Ainsley Calloway NP Primary Care Provider [phone] Encounter Details Date Type Department Care Team (Latest Contact Info) Description 09/07/2025 Travel Social History Tobacco Use Types Packs/Day Years [...] documented as of this encounter Care Teams Rubber Cutting Machine Tender Relationship Specialty Start Date End Date Ainsley Calloway NP [address] [place] [id number] PCP - General Family Medicine 02/06/25 documented as of this encounter
--- OUTSIDE RECORDS SUMMARY | 2025-09-08 20:49 | XMS_ITS | Encounter Summary ---
Author Organization [facility] Address [address] [place] [address] [place] [id number] Care Team Providers Care Sales And Service Advisor Name Role Phone Sherif Everett Md Unavailable Varinder Velazquez Md Primary Care Provide r Ainsley Calloway Np Unavailable [phone] Encounter Details Date Type Department Care Team ([facility] Contact Info) Description 07/02/2025 Effektif Questionnaire [facility] [address] [place] [phone] Online, [employer] USED BY [employer] TO CREATE USER MESSAGE ENCOUNTERS BY NON-PROVIDERS Questionnaire Submission Social History Tobacco Use Types Packs/Day Years Used Date Smoking Tobacco: Never Smokeless Tobacco: Never Alcohol Use Standard Drinks/Week Comments No 0 (1 standard drink = 0.6 oz pur e alcohol) rarely 2023 tw Hunger Vital Sign Answer Date Recorded Within the past 12 months, y ou worried that your food would run out before you got the money to buy more. Sometimes true Within the past 12 months, t he food you bought just didn't last and you didn't have money to get more. Sometimes true 04/2025 PRAPARE - Transportation Answer Date Re corded In the past 12 months, has l ack of transportation kept you from medical appointments or from getting medications? Yes 04/2025 In the past 12 months, has l ack of transportation kept you from meetings, work, or from getting things needed for daily living? Yes 10/24/2024 Depression Answer Date Recorded Last PHQ-2 2 10/27/2024 Last PHQ-9 Not on file 10/27/2024 Suicidal Ideation/Self Harm Risk Not on file 10/27/2024 Housing Stability Answer Date Recorded What is your housing situation today? Has lópez summers 10/24/2024 Are you worried about losing your housing? No 10/24/[address] you li ve. Do you have problem with any of the following? (Choose all that apply) None of the Above 04/2025 Request Assistance Answer Date Recorded Would you like to discuss an y of the needs you identified in this survey with a member of your care team? No 2024 Urgent Assistance Needed Not on file 025 Social Isolation Answer Date Recorded How often do you feel lonely or isolated from th ose around you? Rarely 10/24/2024 Family Needs Answer Date Recorded In the past year, have you o r any family members that you live with been unable to get resources (utilities such as power, water, or phone service; clothing; childcare; medicine or other healthcare; employment; etc) when they were really needed? No needs 10/24/2024 Other Needs Not on file 10/24/2024 Safety Answer Date Recorded Do you feel physically and e motionally safe where you currently live? Yes 10/24/2024 Self-Management Confidence Answer Date Recorded How confident are you that y ou can control and manage most of your health problems? Please provide numerical response between 0 -10. 0 = Not at all confident, 10= Completely confident. 4 10/24/2024 Sex and Gender Information Value Date Recorded Sex Assigned at Male 03/23/2024 8:13 PM EDT Legal Sex Male 10:10 AM EDT Gender Identity Male 03/23/2024 8:13 PM EDT Sexual Orientation Straight 03/23/2024 8: 13 PM EDT documented as of this encounter Plan of Treatment Upcoming Encounters Date Type Department Care Team (Late st Contact Info) Description 10/08/2025 1:40 PM EST Office Visit [facility] [address] [place] [phone] Ainsley Calloway, DYE TUB OPERATOR [address] [place] [address] 11/22/2025 1:10 PM EDT Office Visit [facility] Th[facility] [address] [place] [phone] Shaw Moreno MD [address] [place] [address] 12/16/2025 2:00 PM EDT Office Visit [facility] [address] [place] [phone] Joel Casas MD [address] [place] [phone] 12/23/2025 1:40 PM EDT Office Visit [facility] [address] [place] [phone] Ainsley Calloway NP [address] [place] [phone] documented as of this encounter Visit Diagnoses Not on filedocumented in this encounter Care Teams Sales And Service Advisor Relationship Specialty Start Date End Date Sherif Everett MD PCP - Payer 04/17/19 Varinder Velazquez MD [address] [place] [phone] PCP - General Internal Medicine 02/11/20 Ainsley Calloway, DYE TUB OPERATOR [address] [place] [phone] Primary Care [facility] 09/19/22 Carmelita Yusuf [address] [place] [address] Behavioral Health [employer] PROGRAMS DIRECTOR Behavioral Health 10/26/19 Miky Lester MA [employer] LaborerRider Ticket Worker Health 10/26/19 documented as of this encounter
--- OUTSIDE RECORDS SUMMARY | 2025-09-08 20:49 | XMS_ITS | Clinical Summary ---
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 sertraline 25 mg tablet Take 25 mg by mouth daily 02/14/20 23 Active OXcarbazepine (TRILEPTAL) 150 mg tablet Take 150 mg by mouth at bedtime Active albuterol HFA 90 mcg/actuation HFA Aerosol InhalerIndicati ons:Mild intermittent asthma, unspecified whether complicated INHALE 2 PUFFS BY MOUTH EVERY FOUR HOURS NEEDED 3 each 3 11/05/19 24 Active OTHER MEDICATION, ,Indications:OS A (obstructive sleep apnea) Patient Name: Hu Marie Provider Name: Ainsley Calloway [employer] Item Authorized: CPAP 6 to 18cm Associated Dx:Obstructive sleep apnea (G47.33) Vendor Name: [facility] [employer] Start Date: 01/24/2024 End Date: Lifetime 1 Device 01/24/20 24 Active gabapentin 800 mg tablet Take 800 mg by mouth every evening 05/27/20 24 Active FAMOTIDINE 20 MG TABIndications: Gastroesophagea l reflux disease, unspecified whether esophagitis present Take 1 tablet by mouth twice daily as needed 180 tablet 3 02/19/20 25 Active OMEPRAZOLE 40 MG CAP, DELAYED RELEASEIndicati ons:Gastroesoph ageal reflux disease, unspecified whether esophagitis present Take 1 capsule by mouth daily 90 capsule 3 02/19/20 25 Active DICYCLOMINE 20 MG TABIndications: Irritable bowel syndrome with both constipation and diarrhea Take 1 tablet by mouth twice daily as needed 180 tablet 3 05/07/20 25 Active POLYETHYLENE GLYCOL 3350 100 % ORAL POWDERIndicatio ns:Drug-induced constipation Take 1 capful mixed with 8 ounces non-carbonated fluid and drink once daily 510 gram 3 06/15/20 25 Active PROPRANOLOL 40 MG TABIndications: Chronic tension-type headache, intractable Take 1 tablet by mouth twice daily 180 tablet 3 06/15/20 25 Active IRBESARTAN 150 MG TABIndications: Essential hypertension Take 1 tablet by mouth daily 90 tablet 3 07/02/20 25 Active sucralfate 1 gram tabletIndicatio ns:Gastroesopha geal reflux disease with esophagitis without hemorrhage Take 1 tablet by mouth three times daily 270 tablet 3 07/14/20 25 Active ibuprofen 600 mg tablet Take 600 mg by mouth every 8 hours as needed 05/11/20 25 Active ondansetron 4 mg tablet,disinteg rating Take 4 mg by mouth every 8 hours as needed for nausea 07/19/20 25 Active sertraline 50 mg tablet Take 50 mg by mouth daily Active FLUTICASONE 50 MCG/ACTUATION NASAL SPRAY, SUSPIndications :Mild intermittent asthma without complication Apply 1-2 sprays to each nostril daily (OTC purchase if not covered) 16 gram 2 07/27/20 25 Active HYDROXYZINE 25 MG TABIndications: Insomnia due to other mental disorder Take 1 tablet by mouth at bedtime 90 tablet 1 07/27/20 25 Active beclomethasone dipropionate (QVAR REDIHALER) 40 mcg/actuation HFA Aerosol Breath ActivatedIndica tions:Mild intermittent asthma without complication Take 2 puffs by mouth twice daily 31.8 gram 3 09/02/20 25 Active QVAR REDIHALER 40 MCG/ACTUATION HFA BREATH ACTIVATED AEROSOL (BECLOMETHASONE DIPROPIONATE)In dications:Mild intermittent asthma without complication Inhale 2 puffs twice daily and rinse mouth thoroughly after use 31.8 gram 3 07/02/20 25 025 Discontinued Active Problems Problem Noted Date Diagnosed Date Nausea 08/18/2025 Assessment & Plan (08/18/2025 3:03 PM EST): Patient with chronic nausea. Seen by GI team at [facility] last week. Scheduled for upper endoscopy in 3 weeks. Remains on PPI and sucralfate. No recent vomiting. Continue to monitor. Gastroesophageal reflux disease 02/18/2025 Assessment & Plan (07/14/2025 12:52 PM EDT): Continue taking medications as directed. Follow up with GI as scheduled. Orders: sucralfate 1 gram tablet; Take 1 tablet by mouth three times daily Assessment & Plan (05/07/2025 3:12 PM EDT): Orders: sucralfate 1 gram tablet; Take 1 tablet by mouth twice daily Assessment & Plan (02/18/2025 4:30 PM EDT): Orders: FAMOTIDINE 20 MG TAB; Take 1 tablet by mouth twice daily as needed OMEPRAZOLE 40 MG CAP, DELAYED RELEASE; Take 1 capsule by mouth daily Fatty liver 03/20/2024 Overview (03/20/2024): 04/08: Ongoing elevated LFTs, FibroSure test ordered Assessment & Plan (06/15/2025 11:03 AM EDT): Tirzepatide likely helping history of fatty liver Assessment & Plan (02/18/2025 4:30 PM EDT): Concern for chronic liver disease on recent abdominal CT scan. Will check LFTs and a fibrosure. Has to complete gastric emptying study and then will proceed with Zepbound for weight loss. Continue to work on intermittent fasting efforts. Orders: HEPATITIS C VIRUS FIBROSURE; Future COMPREHENSIVE METABOLIC PROFILE; Future Essential hypertension 11/26/2023 Assessment & Plan (07/27/2025 2:51 PM EST): Normotensive in office Attests to taking all medication as prescribed Denies any signs or symptoms of hypotension Continue: irbesartan Tab - 150 mg ;take 1 tablet by mouth daily propranoloL Tab - 40 mg ;take 1 tablet by mouth twice daily Assessment & Plan (06/15/2025 11:03 AM EDT): Blood pressure borderline today however he has not been taking propranolol. He has had some success with weight loss. I am hoping with the resumption of propranolol and further work on weight loss that his blood pressure will improve -Resume propranolol -Continue tirzepatide for weight loss Assessment & Plan (02/18/2025 4:30 PM EDT): Blood pressure better on irbesartan 150 mg daily. Continue as directed. Orders: COMPREHENSIVE METABOLIC PROFILE; Future Assessment & Plan (01/29/2025 12:28 PM EDT): Blood pressure elevated today. Complaining of lightheadedness at times. Amlodipine could potentially be contributing to this. Will discontinue and increase irbesartan. Return for blood pressure check in 3 weeks. Orders: irbesartan 150 mg tablet; Take 1 tablet by mouth daily Assessment & Plan (11/25/2024 12:35 PM EDT): Blood pressure improved after restarting medication. Continue current treatment as directed. Assessment & Plan (10/27/2024 3:35 PM EST): Blood pressure elevated today, but he has been out of irbesartan and propranolol for the past week. Refills provided. Return for blood pressure check in 1 week. Orders: amLODIPine 5 mg tablet; Take 1 tablet by mouth daily irbesartan 75 mg tablet; Take 1 tablet by mouth daily PROGRAM - Community Partner (non-BRENNA) (not dx, for prob list only) 07/05/2023 Overview (07/05/2023): [facility] CP reassignment effective 12/15/2022 [facility] ACCS Assignment Chronic low back pain 12/20/2021 Overview (03/20/2024): 04/08 back pain continues off and on 02/05: ongoing back pain - feels this has been worse recently - encouraged to try PT for the back which he declines Rectal bleeding 12/10/2021 Overview (03/20/2024): 04/08 has not been an issue lately 12/05 negative colonoscopy, internal hemorrhoids seen Chronic tension-type headache, intractable 11/01 Overview (03/23/2024): 03/23/2024: Normal head CT at [facility] on 03/06/2024. No improvement with nortriptyline. Advised [...] the past but this caused LFT changes. Assessment & Plan (06/15/2025 11:03 AM EDT): He is overdue for refill on medication has run out of propranolol Orders: propranoloL 40 mg tablet; Take 1 tablet by mouth twice daily Assessment & Plan (02/18/2025 4:30 PM EDT): Orders: PROPRANOLOL 40 MG TAB; Take 1 tablet by mouth twice daily Assessment & Plan (10/27/2024 3:35 PM EST): Orders: propranoloL 40 mg tablet; Take 1 tablet by mouth twice daily Assessment & Plan (10/16/2023 2:33 PM EST): Has been taking propranolol 20mg BID since being at [facility] (this was started because of sinus tachycardia. He feels that this may be helping his headaches somewhat. Per chart review, he had been on propranolol previously and felt that it did not help, so this was stopped. Given that he feels it may be helping now, will continue. He will see ENT next week to evaluate for sinus etiology of headache, and then will follow up with neurology to consider CGRP antagonist. - continue propranolol 20mg BID for headache - Tylenol PRN for headache - ENT appointment 10/21 - follow up with neurology Epistaxis 11/01/2021 Atypical chest pain 08/16/2021 Overview (12/20/2021): 01/05: Chest wall tenderness on exam, possible costochondritis 09/05 ongoing daily chest pain since 08/06: Negative upper endoscopy 07/06: History of prior stress test, upper endoscopy planned Assessment & Plan (06/15/2025 11:03 AM EDT): Chronic atypical chest pain Assessment & Plan (10/16/2023 3:05 PM EST): Chest pain continues, mainly on the left but also on both sides. Feels sharp and sometimes achey. Pain is constantly a 6-7. Tylenol improves it temporarily. Does worsen with exertion, has not been like this in the past. Had negative stress test in 2017, negative upper endoscopy 2020. Continues to take PPI. Unlikely that his chest pain is cardiac given characteristics and prior work-up. - lipid panel Irritable bowel syndrome wit h both constipation and diarrhea 08/16/2021 Overview (08/16/2021): 09/05 ongoing abdominal pain 07/06: Visit to GI, felt to have IBS Assessment & Plan (05/07/2025 3:12 PM EDT): Overall symptoms better with dicyclomine. Will continue to take as needed. Orders: dicyclomine 20 mg tablet; Take 1 tablet by mouth twice daily as needed Assessment & Plan (08/31/2024 1:13 PM EST): Symptoms are improved with dicyclomine. Continue to take as directed. Follow up with GI team as scheduled. Orders: dicyclomine 20 mg tablet; Take 1 tablet by mouth twice daily with meals as needed Assessment & Plan (10/16/2023 3:07 PM EST): Continues to have chronic abdominal pain, has seen GI in the past. Encouraged to continue dicyclomine PRN and also make another appointment with GI to follow up for IBS. - dicyclomine PRN - continue Zoloft - follow up with GI STONE (obstructive sleep apnea) 03/09/2021 Overview (02/14/2023): 02/05: has not received CPAP yet - missed appointment with sleep department last month - will reach out to coordinate CPAP 09/05 needs follow up to check on cpap 2020/Mild obstructive sleep apnea, AHI 9.1 (CMS 4%), AHI 16 (AASM) and vera O2 saturation 86%. Assessment & Plan (06/15/2025 11:03 AM EDT): Now on tirzepatide to help with weight loss Orders: tirzepatide, weight loss, (ZEPBOUND) 5 mg/0.5 mL Pen Injector; Administer 5 mg subcutaneously once weekly (month 2 RX) Assessment & Plan (05/07/2025 3:12 PM EDT): Not on CPAP. Hopeful Zepbound will help with symptoms. Continue to monitor. Orders: tirzepatide, weight loss, (ZEPBOUND) 5 mg/0.5 mL Pen Injector; Administer 5 mg subcutaneously once weekly (month 2 RX) Assessment & Plan (11/25/2024 12:35 PM EDT): Remains untreated but has been approved for Zepbound for management. Waiting to start until after upcoming gastric emptying study. Will continue to monitor. Assessment & Plan (10/27/2024 3:35 PM EST): Patient with obstructive sleep apnea unable to obtain CPAP machine. Endorses ongoing fatigue. Will try to obtain approval for Zepbound to treat obstructive sleep apnea. Would also greatly benefit weight. Side effects and directions for use reviewed. Patient to return to the office for injection teaching visit once the medication is obtained. Orders: tirzepatide, weight loss, (ZEPBOUND) 2.5 mg/0.5 mL Pen Injector; Administer 2.5 mg subcutaneously once weekly (month 1 RX) Assessment & Plan (10/01/2024 5:46 PM EST): Patient with untreated obstructive sleep apnea. Discussed that Zepbound was recently FDA approved for the treatment of obstructive sleep apnea. Will plan to try to get covered using that indication. It's unclear if Medicare is now covering this drug; will follow up with clinical pharmacist and then see patient for follow up in 4 weeks. Bipolar 1 disorder 01/20/2019 Overview (02/14/2023): 02/05: remains on lithium - some ongoing depression - followed by Dr. Yusuf 09/05 feels medications are helping right now 01/20/[address] Yusuf at [facility]. Lamictal, Topamax, Clonidine. Lives alone. Not working. Class 3 severe obesity due t o excess calories without serious comorbidity with body mass index (BMI) of 45.0 to 49.9 in adult 01/20/2019 Overview (07/27/2025): 02/05: ongoing struggles with weight and diet - trial of metformin for weight loss - had been on Topamax previously without significant weight loss 09/05 lost weight with interm fasting 01/20/2019 Lost some weight since started Topamax and eating better. Admits eats chips, ice cream and candy. No exercise. Wt Readings from Last 5 Encounters: 07/27/25 : (!) 304 lb (137.9 kg) 07/14/25 : (!) 317 lb 3.2 oz (143.9 kg) 06/15/25 : (!) 317 lb 3.2 oz (143.9 kg) 05/07/25 : (!) 331 lb 12.8 oz (150.5 kg) 04/07/25 : (!) 332 lb (150.6 kg) BMI Readings from Last 5 Encounters: 07/27/25 49.07 kg/m 07/14/25 51.20 kg/m 06/15/25 51.20 kg/m 05/07/25 53.55 kg/m 04/07/25 53.59 kg/m 07/27/25: Zepbound stopped two weeks ago due to abd pain and nausea. PT now intermittent fasting, continues to see weight loss at this time. Assessment & Plan (08/18/2025 3:03 PM EST): Had been on Zepbound with improvement in weight, though he was unable to tolerate the side effects. Suspect this is what caused an uptick in hospital visits. Feeling better off the medication. Weight remains stable. Trying to work on intermittent fasting. Encouraged to continue to do to help manage obesity. Will continue to monitor. Assessment & Plan (07/27/2025 2:51 PM EST): Discussed diet: low sodium, low carbohydrate diet Protein with every meal Largest meal should be during the most active time of the day (breakfast/Lunch). Dinner smaller meal with fewer carbohydrates. Measuring starches/pasta 1/4 to 1/2 cup. Drinking water through out day Exercise: walking, cycling, swimming. Starting out slow 15 minutes per day and increase time, distance and pace as tolerated. Assessment & Plan (07/14/2025 12:52 PM EDT): Patient presenting today for a medication follow up. Doing well on Zepbound with documented weight loss and manageable side effects. Will increase to 7.5 mg per week. Continue to work on diet and exercise as tolerated. Return in 4 weeks for medication follow up or sooner as needed. Orders: tirzepatide, weight loss, (ZEPBOUND) 7.5 mg/0.5 mL Pen Injector; Administer 7.5 mg subcutaneously once weekly (month 3 RX) Assessment & Plan (06/15/2025 11:03 AM EDT): Weight is coming down with tirzepatide Assessment & Plan (05/07/2025 3:12 PM EDT): Patient presenting today for a medication follow up. Took first dose of Zepbound today. Next dose sent to pharmacy. Motivated to work on intermittent fasting again in an attempt to optimize weight loss efforts. Encouraged to prioritize protein. Return in 7 weeks for follow up or sooner as needed. Orders: tirzepatide, weight loss, (ZEPBOUND) 5 mg/0.5 mL Pen Injector; Administer 5 mg subcutaneously once weekly (month 2 RX) Assessment & Plan (02/18/2025 4:30 PM EDT): Congratulated on weight loss efforts. Continue to work on diet. Has gastric emptying study scheduled for the end of the month, discussed that he can start Zepbound if gastroparesis is ruled out. Encouraged to keep the appointment. Assessment & Plan (11/25/2024 12:35 PM EDT): Currently waiting to start treatment for obesity. Will plan to begin Zepbound after gastric emptying study. Follow up 3 weeks into treatment to review side effects and increase medication dose as tolerated. Assessment & Plan (10/27/2024 3:35 PM EST): Worsening obesity over the last two years. Hopeful Zepbound will be approved for obstructive sleep apnea and weight will improve. Orders: topiramate 50 mg tablet; Take 1 tablet by mouth twice daily Assessment & Plan (10/01/2024 5:46 PM EST): Patient with longstanding difficulty with obesity. Is on Medicare, so options for treatment are limited since anti-obesity medications are not covered. However, discussed that Zepbound was recently FDA approved for the treatment of obstructive sleep apnea. Will plan to try to get covered using that indication. It's unclear if Medicare is now covering this drug; will follow up with clinical pharmacist and then see patient for follow up in 4 weeks. Patellofemoral pain syndrome of both knees 12/02 Overview (08/16/2021): 09/05 chronic pain but improved recently, worse in cold weather 01/20/2019 Going to PHYSICAL THERAPY Mild intermittent asthma without complication Overview (02/14/2023): 02/05: rare use of inhalers 09/05 asking for refills on inhalers 01/20/2019 Using flovent bid and albuterol twice a week. Assessment & Plan (09/04/2025 1:42 PM EST): He requested refill for his Qvair. Prescription send to his pharmacy. Orders: beclomethasone dipropionate (QVAR REDIHALER) 40 mcg/actuation HFA Aerosol Breath Activated; Take 2 puffs by mouth twice daily Assessment & Plan (07/27/2025 2:51 PM EST): Pt reports ED recommended flonase for URI symptoms. Orders: fluticasone propionate 50 mcg/actuation [place], Suspension; Apply 1-2 sprays to each nostril daily (OTC purchase if not covered) Assessment & Plan (10/27/2024 3:35 PM EST): Well controlled. Refill provided. Orders: beclomethasone dipropionate (QVAR REDIHALER) 40 mcg/actuation HFA Aerosol Breath Activated; Inhale 2 puffs twice daily and rinse mouth thoroughly after use Resolved Problems Problem Noted Date Diagnosed Date Resolved Date Pain in both lower extremities 01/06/2024 07/27/2025 Overview (03/20/2024): 04/08 some calf pain bilateral 01/06/2024: More constant leg pain especially left calf most likely left S1 radiculopathy. Declines PT. PROGRAM - Community Partner (non-THPP) (not Dx for prob list only) 03/18/2018 07/05/2023 Overview (07/05/2023): [facility] CP reassignment effective 12/15/2022 Initial Care Plan received and sent to 10/26/2019, approved 10/27/2019, and sent back to [facility] Annual Care Plan received 12/22/20, sent to 12/22/20, sent to 12/22/20, approved 4/9/21, sent back to CP Hearing loss 12/25/1990 01/20/2019 Pneumonia, organism unspecified(486) 1989 01/20/2019 Encounters Date Type Department Care Team Description 09/02/2025 3:00 PM EST Office Visit [facility] [address] [place] [phone] Mya Carrasquillo NP Otitis media, unspecified laterality, unspecified otitis media type (Primary Dx); Upper respiratory tract infection, unspecified type; Mild intermittent asthma without complication 08/31/2025 Telephone [facility] [address] [place] [phone] [facility] EAR PAIN 08/18/2025 1:40 PM EST Office Visit [facility] [address] [place] [phone] Ainsley Calloway NP Class 3 severe obesity due to excess calories without serious comorbidity with body mass index (BMI) of 45.0 to 49.9 in adult (Primary Dx); Nausea; Insomnia due to other mental disorder 07/28/2025 Telephone [facility] [address] [place] [phone] Kelsey Moore RN 07/27/2025 2:00 PM EST Office Visit [facility] [address] [place] [phone] Dawn Awan NP Insomnia due to other mental disorder (Primary Dx); Mild intermittent asthma without complication; Need for influenza vaccination; Essential hypertension; Class 3 severe obesity due to excess calories without serious comorbidity with body mass index (BMI) of 45.0 to 49.9 in adult 07/27/2025 Travel 07/26/2025 Telephone [facility] [address] [place] [phone] [facility] POST-ED DISCHARGE CALL 07/24/2025 Email Encounter [facility], Provider Get Your Flu Vaccine Now 07/20/2025 Telephone [facility] [address] [place] [phone] Ana Rosa Torre RN MEDICATION COUNSELING 07/20/2025 Telephone [facility] [address] [place] [phone] [facility] MEDICATION COUNSELING 07/14/2025 12:20 PM EDT Office Visit [facility] [address] [place] [phone] Ainsley Calloway NP Morbid obesity ([facility]) (Primary Dx); Gastroesophageal reflux disease with esophagitis without hemorrhage 07/14/2025 Travel 07/13/2025 Telephone [facility] [address] [place] [phone] Ainsley Calloway NP 07/06/2025 Email Encounter [facility] [address] [place] [phone] Online, [facility] 07/02/2025 Letter (Out) [facility] [address] [place] [phone] [place] [place] 07/02/2025 MyHealth Questionnaire [facility] [address] [place] [phone] Online, My[facility] Questionnaire Submission 07/02/2025 Telephone [facility] [address] [place] [phone] Bia Ruiz RN Chronic Nausea (Primary Dx); Atypical Chest Pain 07/01/2025 Telephone [facility] [address] [place] [phone] [facility] Generalized Abdominal Pain (Primary Dx) 06/16/2025 Email Encounter [facility], Provider Get Your Flu Vaccine Now 06/15/2025 10:20 AM EDT Office Visit [facility] [address] [place] [phone] Varinder Velazquez MD Drug-induced constipation (Primary Dx); Chronic tension-type headache, intractable; Primary insomnia; Body mass index 50.0-59.9, adult ([facility]); STONE (obstructive sleep apnea); Essential hypertension; Atypical chest pain; Morbid obesity (CMS-HCC); Fatty liver; Left upper quadrant abdominal pain 06/15/2025 Telephone [facility] [address] [place] [phone] Ashley Fung, RN Abdominal Pain, Unspecified Abdominal Location (Primary Dx) from Last 3 Months Immunizations Immunization Administration Dates Next Due COVID-19 (MODERNA) Vaccine, 50mcg/0.25mL, Booster, 18YRS+, IM 09/12/2021 COVID-19 (PFIZER) Vaccine, 1 2YRS+, 30mcg/0.3mL 08/18/2025,07/17/2024,08/15/2023 COVID-19 (PFIZER) Vaccine, 30mcg/0.3mL, 12YRS+, Diluent Reconstituted, IM 01/26/2021,01/05/2021 COVID-19 (PFIZER) Vaccine, 30mcg/0.3mL, Bivalent, 12YRS+, Pre-Mixed 08/13/2022 DTP Vaccine 04/01/1991, 0,01/28/1990,1989 HFlu B Conj (Unspecified Formulation) 12/24/1990 ,08/13/1990 Hep A Vaccine Adult 09/03/2016,02/24/2016 Influenza Vaccine, 36MOS+, S plit Virus, Single Dose Syringe (AFLURIA) 07/27/2025,07/17/2024 Influenza Vaccine, 6MOS+, Ce ll Cult, Single Dose Syringe, 0.5 mL (FLUCELVAX) 08/15/2023 Influenza Vaccine, 6MOS+, Si ngle Dose, 0.5 mL (Flulaval/Fluzone) 08/13/2022,08/16/2021,08/01/2020,2018,06/23/2018,06/21/2017,09/03/2016,0 05/25/2015,06/09/2014 Influenza Vaccine, Split Vir us (Unspecified Formulation) 06/21/2010 MMR Vaccine 12/24/1990 OPV,Trivalent (Admin before 12/16/2015) 04/01/1991 ,01/28/1990,1989 Pneumococ/Adult-Polysac (PPSV23) 01/20/2019 Pneumococcal Conjugate (PCV20) 04/30/2022 TB Test 08/25/1992,02/15/1992 TD (Adult) Vaccine, 2 Lf Tet anus Toxoid, Pf, Adsorbed 12/09/2009 TdaP 06/23/2018,08/27/2014 Medical History Medical History Date Comments Conjunctivitis 1989 Converted Data Pneumonia, organism unspecified(486) 1989 Converted Data Asthma 07/20/1991 Converted Data Otitis media 12/14/1992 Converted Data Pain in both lower extremities 01/06/2024 some calf pain bilateral 01/06/2024: More constant leg pain especially left calf most likely left S1 radiculopathy. Declines PT. Family History Medical History Relation Comments No significant medical history Father Psych - bipolar disorder Maternal Grandfather Psychiatric illness Maternal Grandmother schizop hrenia Arthritis Mother Psych - bipolar disorder Mother Anxiety Sister Psych - bipolar disorder Sister Relation Status Comments Father Alive Maternal Grandfather Maternal Grandmother Mother Alive Sister Alive Social History Tobacco Use Types Packs/Day Years Used Date Smoking Tobacco: Never Smokeless Tobacco: Never Tobacco Cessation:Counseling Given: Not Answered Alcohol Use Standard Drinks/Week Comments No 0 [...] Depression Answer Date Recorded Last PHQ-2 2 07/14/2025 Last PHQ-9 Not on file 07/14/2025 Suicidal Ideation/Self Harm Risk Not on file 07/14/2025 Housing Stability Answer Date Recorded What is [...] Orientation Straight 03/23/2024 8: 13 PM EDT History Length Weight Head Circum Date/Time Gestation Age D/C Weight APGARs Delivery Method Feeding Method 20 (50.8 cm) 7 lb 8 oz (3.402 kg) 0 (0 cm) 1990 7 lb 2 oz 1min: 9 5mi n: 9 Labor Duration Days In Hospital Hospital Name Hospital Location Last Filed Vital Signs Vital Sign Reading Time Taken Comments Blood Pressure 130/80 09/02/2025 3:42 PM EST rig h arm Pulse 80 09/02/2025 3:10 PM EST Temperature 36.5 C (97.7 F) 09/02/2025 3:10 PM EST Respiratory Rate 18 01/27/2025 1:38 PM EDT Oxygen Saturation 96% 09/02/2025 3:10 PM EST Inhaled Oxygen Concentration - - Weight 139.9 kg (308 lb 6.4 oz) 09/02/2025 3:10 PM EST Height 167.6 cm (5' 6 ) 09/02/2025 3:10 PM EST Body Mass Index 49.78 09/02/2025 3:10 PM EST Plan of Treatment Upcoming Encounters Date Type Department Care Team (Late st Contact Info) Description 10/08/2025 1:40 PM EST Office Visit [facility] [address] [place] [phone] Ainsley Calloway, JOEL [address] [place] [address] 11/22/2025 1:10 PM EDT Office Visit [facility] Ears, Nose and Throat [address] [place] [phone] Shaw Moreno MD [address] [place] [address] 12/16/2025 2:00 PM EDT Office Visit [facility] Gastroenterology [address] [place] [phone] Joel Casas MD [address] [place] [address] 12/23/2025 1:40 PM EDT Office Visit [facility] [address] [place] [phone] Ainsley Calloway NP [address] [place] [address] Health Maintenance Due Date Last Done Comments PERIODIC HEALTH REVIEW 03/20/2025 03/20/2024 * LIPID PROFILE 05/07/2026 05/07/2025, 09/18, 11/30/2020, Additional history exists * KIDNEY DISEASE SCREEN-(CREATININE) 09/01/2026 09/01/2025, 08/05/2025, 08/04/2025, Additional history exists DTAP/TDAP/TD VACCINE (8 - Td or Tdap) 06/23/2028 06/23/2018, 08/27/2014, 12/09/2009, Additional history exists * GLUCOSE OR A1C SCREENING - Q3YR 09/01/2028 09/01/2025, 08/05/2025, 08/04/2025, Additional history exists HAEMOPHILUS INFLUENZA VACCINE Completed 12/24/1990, 08/13/1990 POLIO VACCINE Aged Out 04/01/1991, 01/14, 1989 No longer eligible based on patient's age to complete this topic HEPATITIS A VACCINE Completed 09/03/2016, PNEUMOCOCCAL VACCINE(S) Completed 04/30/2022, 01/20 HEP C SCREENING Completed 02/12/2023, 05/24/2021 HEP B INITIAL SCREENING Completed 06/05/2024 HIV SCREENING Completed 05/07/2025 FLU SEASONAL Completed 07/27/2025, 09/2023, 08/15/2023, Additional history exists COVID-19 Vaccine Completed 08/18/2025, 09/2023, 08/15/2023, Additional history exists RSV Vaccine //toddler Aged Out No longer eligible based on patient's age to complete this topic Procedures Procedure Name Priority Date/Time Associated Diagnosis Comments HIV 1/2 ANTIGEN / ANTIBODY 4TH GENERATION W/REFLEX Routine 05/07/2025 3:04 PM EDT Screening for HIV (human immunodeficiency virus) LIPID PROFILE Routine 05/07/2025 3:04 PM EDT Screening for cholesterol level CMP Routine 04/07/2025 3:01 PM EDT Left upper quadrant abdominal pain COMPREHENSIVE METABOLIC PROFILE Routine 04/07/2025 3:01 PM EDT Left upper quadrant abdominal pain HEPATITIS C ANTIBODY W/REFLEX TO PCR Routine 02/12/2023 3:31 PM EDT Need for hepatitis C screening test from Last 3 Months or Most Recently Relevant to Health Maintenance Results * (ABNORMAL) LIPID PROFILE (05/07/2025 3:04 PM EDT) CHOLESTEROL 228(H) <=199 mg/dL 05/07/2025 9:44 PM EDT [facility] DEPARTMENT OF PATHOLOGY AND LAB MEDICINE HDL 44 >=41 mg/dL 05/07/2025 9:44 PM EDT [facility] DEPARTMENT OF PATHOLOGY AND LAB MEDICINE CHOL/HDL RATIO 5.2(H) <=4.9 05/07/2025 9:44 PM EDT [facility] DEPARTMENT OF PATHOLOGY AND LAB MEDICINE LDL 156(H) <=130 mg/dL 05/07/2025 9:44 PM EDT [facility] DEPARTMENT OF PATHOLOGY AND LAB MEDICINE TRIGLYCERIDES 140 <=149 mg/dL 05/07/2025 9:44 PM EDT [facility] OF PATHOLOGY AND LAB MEDICINE FASTING STATUS Random 05/07/2025 9:44 PM EDT [facility] DEPARTMENT OF PATHOLOGY AND LAB MEDICINE Blood (Blood, Venous) Venipuncture / Unknown 05/07/2025 3:04 PM EDT 05/07/2025 3:04 PM EDT us Ainsley Mccollum Np [facility] LAB Final Result Performing Organization Address City/State/[facility] Co de Phone Number [facility] OF PATHOLOGY AND LAB MEDICINE [address] [place] [phone] * HEPATITIS C ANTIBODY W/REFLEX TO PCR (02/12/2023 3:31 PM EDT) HEPATITIS C ANTIBODY 0.08 <0.80 Index Value (IV) 02/12/2023 10:[address] [facility] DEPARTMENT OF PATHOLOGY AND LAB MEDICINE Comment: NEGATIVE 0.00 - 0.79 Index Value (IV) Negative Blood (Blood, Venous) Venipuncture / Unknown 02/12/2023 3:31 PM EDT 02/12/2023 3:31 PM EDT us Ainsley Calloway GENERAL LAB Final Result [facility] DEPARTMENT OF PATHOLOGY AND LAB MEDICINE [address] [place] [phone] from Last 3 Months or Most Recently Relevant to Health Maintenance [place] Care Teams Build And Deployment Engineer Relationship Specialty Start Date End Date Sherif Everett MD PCP - Payer 04/17/19 Varinder Velazquez MD [address] [place] [phone] PCP - General Internal Medicine 02/11/20 Ainsley Calloway NP [address] [place] [address] [phone] Primary Care [facility] Internal Medicine 09/19/22 Carmelita Yusuf [address] [place] [address] Behavioral Health STRAP SEWER Behavioral Health 10/26/19 Miky Lester MA Tallow RefinerTools Administrator Health 10/26/19
--- OUTSIDE RECORDS SUMMARY | 2025-09-08 20:49 | XMS_ITS | Encounter Summary ---
Author Organization [facility] Address [address] [place] [address] [address] [place] [phone] Care Team Providers Care Congressional Assistant Name Role Phone Sherif Everett Md Unavailable Varinder Velazquez Md Primary Care Provide r Ainsley Calloway Np Unavailable [phone] Reason for Visit * Reason Comments Post-Discharge Call Encounter Details Date Type Department Care Team ([facility] st Contact Info) Description 05/27/2025 Telephone [facility] [address] [place] [phone] [facility], /[place], [place] [phone] POST-DISCHARGE CALL Social History Tobacco Use Types Packs/Day Years Used Date Smoking Tobacco: Never Smokeless Tobacco: Never Comments:2023 tw Alcohol Use Standard Drinks/Week Comments No 0 [...] is your housing situation today? Has lópez summres 10/24/2024 Are you worried about losing your [...] PM EDT documented as of this encounter Miscellaneous Notes * Telephone Encounter - Michael Rodas RN - 05/27/2025 1:59 PM EDT Telephone call to patient. Left message for patient to call back the office. [employer] message not sent. Please send call back directly to [facility]: [phone]. Call back reminder sent. * Telephone Encounter - Michael Rodas RN - 05/27/2025 1:58 PM EDT Images from the original note were not included. Ainsley Calloway NP Blithe, Collier, RN Caller: Unspecified (Today, 9:07 AM) I can add him on 06/10 at noon. Ainsley Casey * Telephone Encounter - Michael Rodas RN - 05/27/2025 9:16 AM EDT Spoke with patient's mother PSR scheduled ER follow up with PCP Mother is asking if patient can see PIG BREEDER instead Advised no appts with PIG BREEDER Brodie Reports that patient is continuing to have issues that she feels may be related to zepbound Will send to [facility] PIG BREEDER documented in this encounter Plan of Treatment Upcoming Encounters Date Type Department Care Team (Late st Contact Info) Description 10/08/2025 1:40 PM EST Office Visit [facility] [address] [place] [phone] Ainsley Calloway NP [address] [place] [address] 11/22/2025 1:10 PM EDT Office Visit [facility] Ears, Nose and Throat [address] [place] [phone] Shaw Moreno MD [address] [place] [address] 12/16/2025 2:00 PM EDT Office Visit [facility] G[facility]enterology [address] [place] [phone] Joel Casas MD [address] [place] [address] 12/23/2025 1:40 PM EDT Office Visit [facility] [address] [place] [phone] Ainsley Calloway, JOEL [address] [place] [address] documented as of this encounter Visit Diagnoses Not on filedocumented in this encounter Care Teams Congressional Assistant Relationship Specialty Start Date End Date Sherif Everett MD PCP - Payer 04/17/19 Varinder Velazquez MD [address] [place] [phone] PCP - General Internal Medicine 02/11/20 Ainsley Calloway NP [address] [place] [address] Primary Care APC Internal Medicine 09/19/22 Carmelita Yusuf [address] [facility] [phone] Behavioral Health CURING ROOM WORKER Behavioral Health 10/26/19 Miky Lester MA App[employer] CutterHealthcare Interpreter Health 10/26/19 documented as of this encounter
--- OUTSIDE RECORDS SUMMARY | 2025-09-08 20:49 | XMS_ITS | Encounter Summary ---
Author Organization [facility] Address [address] [place] [address] [place] [address] Care Team Providers Care Inspection And Testing Supervisor Name Role Phone Sherif Everett Md Unavailable Varinder Velazquez Md Primary Care Provide r Ainsley Calloway Np Unavailable [phone] Reason for Visit * Reason Comments Medication Counseling Nausea Vomiting Encounter Details Date Type Department Care Team ([facility] st Contact Info) Description 07/20/2025 Telephone Adult [facility] [address] [place] [phone] Ana Rosa Torre, RN [address] [place] [phone] MEDICATION COUNSELING Social History Tobacco Use Types Packs/Day Years [...] encounter Miscellaneous Notes * Telephone Encounter - Ana Rosa Torre RN - 07/20/2025 6:23 PM EST Hu Marie is a 34 yrs. established patient who presents for a telephone visit. CC/Reason for Visit: n/v/d HPI/Current issues or questions: Patient calling triage this evening at 6pm stating he feels worse than yesterday when he went to the ED. He vomitted 3-4 times, now vomiting water, patient states he was able to keep a granola bar down and a small piece of pizza. Patient states he feels dizzy, chills, diaphoretic, has a AUGUSTIN, having visual changes-blurry, seeing different colors. Feeling very weak and does not feel he can manage himself at home at this time. Patient was concerned about taking his weekly zepbound dose tomorrow however he does not feel he should attempt feeling so poorly. Exam: Patient reported vitals: (if any): There were no vitals taken for this visit. Estimated body mass index is 51.2 kg/m?? as calculated from the following: Height as of 07/14/25: 5' 6 (1.676 m). Weight as of 07/14/25: 317 lb 3.2 oz (143.9 kg). General impression: alert and oriented ASSESSMENT / PLAN / DISCUSSION WITH PATIENT: Advised patient that visual changes required prompt and immediate assessment. Patient advised to go to ED now. Patient states his mother will drive him. Advised patient to call triage we are 08/04 ifsymptoms worsen or further questions regarding medication. Other Treatment/Advice: see AVS FOLLOW UP: if symptoms worsen Time Spent: I spent 32 minutes caring for the patient today including [id number] and non [id number] time. Patient location: home. The patient stated they were physically in [place] at the time of thevisit. I conducted this virtual visit from home. I conducted this visit independently. * Telephone Encounter - Maria Ines Mendiola PSR - 07/20/2025 6:02 PM EST Reason for call: Medication Counseling Additional relevant details provided by caller: Pt has been experiencing gastric upset and is wondering if he should take his 5mg zepbound with the issues he's been having. He contacted office previously (See note in chart) He's wondering if he should also go to hospital again? New or ongoing problem: new Do you have these symptom right now: Yes Preferred method of reply: phone call using the phone number listed on the Contacts section documented in this encounter Plan of Treatment Upcoming Encounters Date Type Department Care Team (Late st Contact Info) Description 10/08/2025 1:40 PM EST Office Visit [facility] [address] [place] [phone] Ainsley Calloway NP [address] [place] [address] 11/22/2025 1:10 PM EDT Office Visit [facility] Ears, Nose and Throat [address] [place] [phone] Shaw Moreno MD [address] [place] [address] 12/16/2025 2:00 PM EDT Office Visit [facility] [address] [place] [phone] Joel Casas MD [address] [place] [phone] 12/23/2025 1:40 PM EDT Office Visit [facility] [address] [place] [phone] Ainsley Calloway NP [address] [place] [address] documented as of this encounter Visit Diagnoses Not on filedocumented in this encounter Care Teams Inspection And Testing Supervisor Relationship Specialty Start Date End Date Sherif Everett MD PCP - Payer 04/17/19 Varinder Velazquez MD [address] [place] [address] [phone] PCP - General Internal Medicine 02/11/20 Ainsley Calloway NP [address] [place] [address] [phone] Primary Care [facility] Internal Medicine 09/19/22 Carmelita Yusuf [address] [place], [place] [phone] Behavioral Health DEVELOPMENT REP Behavioral Health 10/26/19 Miky Lester MA Car Seat MakerCost Control Supervisor Health 10/26/19 documented as of this encounter
[2025-09-08 21:10] VITALS: BP 149/84; PULSE 93; RESP 15; TEMP 36.4; O2SAT 99
[2025-09-08 23:40] VITALS: BMI 48.3
--- NOTE | 2025-09-09 04:24 | PC.ADMIT ---
Pt is a 35 y.o. male who was admitted from [facility]. He arrived to on 09/08/25 at 21:00, and was admitted with CV status. He was admitted to [facility] ED on 09/07/25 with increased thoughts of SI/HI. He was tested positive for Flu A on the same day. His mental health diagnoses: Schizoaffective d/o, Biplar type 1. Per Crisis assessment pt continued to endorse SI and said the thoughts come and go . Pt denied current HI, but shared that he has had thoughts or images to hurt his Mom and sister . Pt denied experiencing AVH. His Tox screen was negative, and said that he does not smoke or drink alcohol. Pt was calm and cooperative during the admission assessment on , and signed admission papers. He rated his depression as 4/10, and anxiety 1/10. He said again that his SI comes and goes . Pt stated that he went to therapy yesterday and they sent me to ER . He also reported that his mother is bipolar and she triggers me sometimes . Pt stated that he had his Flu shot this season on June of 2025. Patient's responses were delayed at times, some thought blocking noted. He also complained of lower back pain and poor sleep at night. He was oriented to unit and took his night meds.
[2025-09-09 08:00] VITALS: BP 136/78; PULSE 75; RESP 18; TEMP 36.4; O2SAT 97
--- NOTE | 2025-09-09 08:44 | HO.PSYADMNOT ---
HPI Date of Service: 09/09/25 Chief Complaint: F25.9 Sources of Information: patient interviewed, chart reviewed and crisis/core team assessment reviewed HPI Subjective Notes: [place] Warning and Conditional Voluntary Healthcare Proxy: No Guardianship: No Medical Problems Affecting Mental Status: No Narrative: Per [facility] crisis note: patient is a 35 year-old Single, Indonesian speaking male with hx of HTN, pre-diabetic, and schizoaffective disorder who presented to the ED with concerns of decompensating. Pt reported I've been having fleeting thoughts that almost seem like images to hurt my mother and my sister . Pt reports that these have been happening sporadically over the last few months but have become consistent recently. Pt reports that once these thoughts and feelings started he removed all knives and other things that can be used as weapons from his possession. Patient reports no HI/SIB. Pt reports he is hallucinating but only at night when he is trying to sleep. Patient reports that he is not sleeping well and his appetite has been significantly lower than normal. Patient is medically cleared. On M5: meet with patient in group room at 1023 on 09/09/25,report main precipitant for this admission was I have not slept well for a couple of weeks or maybe longer. I got few hours here and there which affect my mental health . Patient reports that he was prescribed Amoxicillin for ear infection x10 days and believe this medications messed up everything . Report he last took it was yesterday in the ED and should be all set. Currently denies SI but it comes and goes . Feeling safe here on the unit. Denies SIB and SIB hx. Denies HI but sometimes having thoughts of hurting my sister . Report sometime HI toward mom but more toward my sister . As mention above, he gave all knives and other things can be used as weapon. Denies AVH, report sometimes hearing voices at night but believe it is not hallucination. Denies hx of suicide attempts. Report his appetite has been a little bit better but could not sleep still. Discuss with patient regarding med changes. Patient is receptive to the plan. Legal: denies has a hx of legal issues. Family hx: Mom has Bipolar and he believes she may have schizoaffective. Sister has same schizoaffective like him. Report sister and his grandfather from his mom have alcohol issues. Substance use hx: denies Patient is A+O x3, wearing mask cover nose and mouth. Compliant with protocol regarding Flu+. Wearing casual attire, pleasant and cooperative, appear to be depressed, knowing his treatment hx and medical condition. Poor sleep in a long period of time affected mental health. Restrictive affect. Thought process is organized, linear. Speech is WNL, soft spoken, no manic behavior. Fair eye contact. Thought content is with SI on and off even no active at this moment but feel safe here. HI also comes and goes toward family members. No AVH. Do not make any delusional or or paranoid statements. Poor judgment but fair insight. Past Psychiatric History: Pt has outpatient providers, through [facility]. Pt has hx of IP admissions, denies hx of suicide attempts. Have OP provider/ therapist and PCP who he has seen oftern Medication trials: latuda and abilify family give him dystonia. Trazodone gave him panic attack Medical Evaluation Reviewed: Hospitalist Rae Pending COUNT INCLUDES THE [facility] Narrative: HTN ? Pre-diabetic Family History: Mom has Bipolar and he believes she may have schizoaffective. Sister has same schizoaffective like him. Report sister and his grandfather from his mom have alcohol issues. Social History: He is single. No children. Some college level. Lives with his mother in [place]. Substance History: Denies Trauma History: Report period of being in foster care and DCF custody when he was younger was traumatized to him Diagnostics Vital Signs (24Hr): Vital Signs - 24 hr 09/08/25 21:10 Temperature 97.6 F Pulse Rate 93 Respiratory Rate 15 Blood Pressure 149/84 H Pulse Oximetry 99 BMI result Body Mass Index 48.3 Meds/Allergies Meds Home Medications ?Medication ?Instructions ?Recorded ?Confirmed ?Type Lactobacillus rhamnosus GG 10 1 cap PO BID 09/08/25 09/08/25 History billion cell capsule (Culturelle) albuterol sulfate 90 mcg/actuation inhalation 09/08/25 09/08/25 History aerosol inhaler dicyclomine 20 mg tablet 20 mg PO BID 09/08/25 09/08/25 History famotidine 20 mg tablet 20 mg PO BID 09/08/25 09/08/25 History gabapentin 800 mg tablet 800 mg PO BEDTIME 09/08/25 09/08/25 History hydroxyzine HCl 25 mg tablet 25 mg PO DAILY 09/08/25 09/08/25 History irbesartan 150 mg tablet 150 mg PO DAILY 09/08/25 09/08/25 History meclizine 12.5 mg tablet 12.5 mg PO TID PRN Dizziness 09/08/25 09/08/25 History melatonin 5 mg tablet 5 mg PO BEDTIME PRN Sleep 09/08/25 09/08/25 History omeprazole 40 mg capsule,delayed 40 mg PO DAILY 09/08/25 09/08/25 History release ondansetron HCl 4 mg tablet 4 mg PO Q8H PRN Nausea 09/08/25 09/08/25 History polyethylene glycol 17 ea miscellaneous PRN 09/08/25 History Constipation propranolol 40 mg tablet 40 mg PO BID 09/08/25 09/08/25 History sertraline 25 mg tablet 25 mg PO BEDTIME 09/08/25 09/08/25 History sertraline 50 mg tablet 50 mg PO BEDTIME 09/08/25 09/08/25 History sucralfate 1 gram tablet 1 g PO TID 09/08/25 09/08/25 History oxcarbazepine 150 mg tablet 150 mg PO BEDTIME 09/09/25 09/09/25 History Allergies Allergies Allergy/AdvReac Type Severity Reaction Status Date / Time Sulfa (Sulfonamide Allergy Rash Verified 09/08/25 22:56 Antibiotics) trimethoprim Allergy Unknown Verified 09/08/25 22:56 aripiprazole AdvReac Muscle Verified 09/08/25 22:56 cramps lurasidone AdvReac Muscle Verified 09/08/25 22:56 cramps trazodone AdvReac Anxiety Verified 09/08/25 22:56 Mental Status Exam Mental Status Exam Narrative: Patient is A+O x3, wearing mask cover nose and mouth. Compliant with protocol regarding Flu+. Wearing casual attire, pleasant and cooperative, appear to be depressed, knowing his treatment hx and medical condition. Poor sleep in a long period of time affected mental health. Restrictive affect. Thought process is organized, linear. Speech is WNL, soft spoken, no manic behavior. Fair eye contact. Thought content is with SI on and off even no active at this moment but feel safe here. HI also comes and goes toward family members. No AVH. Do not make any delusional or or paranoid statements. Poor judgment but fair insight. Assessment & Plan Assessment & Plan (1) Bipolar disorder, unspecified: Status: Acute Code(s): F31.9 - Bipolar disorder, unspecified Plan HPI: patient is a 35 year-old Single, Indonesian speaking male with hx of HTN, pre-diabetic, and schizoaffective disorder who presented to the ED with concerns of decompensating. Pt reported I've been having fleeting thoughts that almost seem like images to hurt my mother and my sister . Pt reports that these have been happening sporadically over the last few months but have become consistent recently. Pt reports that once these thoughts and feelings started he removed all knives and other things that can be used as weapons from his possession. Patient reports no HI/SIB. Pt reports he is hallucinating but only at night when he is trying to sleep. Patient reports that he is not sleeping well and his appetite has been significantly lower than normal. Patient is medically cleared. Formulation/clinical reasoning: poor sleep in a prolong period along with poor appetite. Increased depression symptoms, SI and HI toward family members. Patient is decompensating and feeling unsafe in community. Hx of schizoaffective, patient would benefit in restrictive environment for safety, medication adjustment and refer patient back to OP psychiatric services for aftercare. Hospital course: 09/09/25 Melatonin 6mg at HS Increase trileptal from 150mg at HS to 300mg. Patient prefers taking meds once at HS. Montior for Sodium level. Gabapentin 100mg BID PRN for severe anxiety (d/t hx of dystonia with Abilify and Latuda, will use Cristofer for now as PRN) Hydroxyzine 25mg at HS for anxiety/sleep- report it works for him Continue with Sertraline 75mg as home dose. Have room to titrate up as patient has been taking same dose for couple months. It is noted that patient as prescribed Propranolol and Albutrerol by OP provider. Monitor for asthma symptoms. Nursing also notified. Plan Patient on 15 minute checks for safety. Admitted to M5. CV. Work with treatment team to do collateral Contact the hospitalist regarding hospitalist consultation on admission: pending Diagnostic testing and discharge planning Pt tested positive for flu-A 09/05/25. Utox neg. U/A negative. Medication trials: latuda and abilify family give him dystonia. Trazodone gave him panic attack Patient educated on: diagnosis, medication risk/benefits and substance abuse Informed Consent: understands and further education needed Reason for continued inpatient stay Substantial Risk for: med/psych decompensation Statement Statement: I have reviewed the history and physical and performed a pertinent examination on my patient. No changes have occurred unless specified. If the History and Physical was not performed prior to admission, the Hospitalist's service will be consulted for completing the admission physical. Time Spent With Patient Time: Total time managing care of this patient today ____ minutes.
[2025-09-09] MEDS: Milk of Magnesia 30 ML ORAL.SUSP PO (11:40)
[2025-09-09] MEDS: Throat Lozenge, Medicated LOZENGE 1 LOZENGE MUCOUS MEM (13:03)
[2025-09-09] MEDS: guaiFENesin LA 600 MG TAB.ER.12H PO (13:03)
[2025-09-09 20:00] VITALS: BP 136/69; PULSE 74; RESP 15; TEMP 36.4; O2SAT 96
[2025-09-09] MEDS: Artificial Tears 15 ML DROPS 2 DROP EYE-BOTH (21:02)
--- NOTE | 2025-09-09 22:23 | HO.PM.IMCN ---
History of Present Illness Data of Consult Service Date: 09/09/25 Requesting physician: Wendie Machado Primary Care Provider: Unknown Physician HPI Reason for consult: Admission H/P Pt is a 35 yo male with PMH Bipolar I, Schizoaffective DO, obesity, childhood asthma, HTN, prediabetes, chronic muscular chest pain, GERD, with wisdom teeth extractions is being seen on M5 for medical review after being transferred from [facility] for , [place]. Pt currently sitting, watching TV with mask on. Pt was diagnosed with Influenza A on the and was not started on Tamiflu as his symptoms started days prior. Pt states he is feeling overall better. Pt denies any current medical issues and states if he has chest pain (chronic) he takes ibuprofen and this helps. Pt is in need of new glasses and has an appointment coming up soon. Pt does not smoke, use marijuana, alcohol or illicit drugs. Pt denies hx of IVDA. Review of Systems Review of Systems: Pt denies currentlyl chest pain, SOB at rest, or with exertion, STONE, abd pain, N/V. [facility] Medical History (Updated 09/09/25 @ 22:45 by FRANKY Yee) Chronic chest pain Obesity GERD (gastroesophageal reflux disease) HTN (hypertension) Asthma Cognitive capacity: A/O X3 Surgical History (Updated 09/09/25 @ 22:44 by FRANKY Yee) [place] teeth extracted Social History Household Members: None Housing: Apartment Do you presently have visiting nurse or other home services: No Patient Tobacco Use Status: Never used Tobacco Currently Displaying Signs/Symptoms of Drug Intoxication Withdrawal: No Have you been hit, kicked, punched, or otherwise hurt by someone within the past year? If so, by whom?: No Do you feel safe in your current relationship?: No Current Relationship Is there a partner from a previous relationship who is making you feel unsafe now?: No Are you made to feel afraid or neglected: No Spiritual Healthcare Practices: Confucianist [employer]ism Advance Directives: No Advance Directives Information Provided: No Do you have thoughts of harming others: None Do you have a plan to hurt others: No Plan Recently lost weight without trying: No Eating poorly because of decreased appetite: No Nutrition Risks: No Nutritional Risk Poor oral hygiene: No Meds Allergies Allergy/AdvReac Type Severity Reaction Status Date / Time Sulfa (Sulfonamide Allergy Rash Verified 09/08/25 22:56 Antibiotics) trimethoprim Allergy Unknown Verified 09/08/25 22:56 aripiprazole AdvReac Muscle Verified 09/08/25 22:56 cramps lurasidone AdvReac Muscle Verified 09/08/25 22:56 cramps trazodone AdvReac Anxiety Verified 09/08/25 22:56 Active Medications: Current Medications Acetaminophen (Acetaminophen 325 Mg Tablet) 650 mg PO Q6H PRN PRN Reason: Headache/Pain, Scale 1-10 Last Admin: 09/09/25 15:48 Dose: 650 mg Al Hydroxide/Mg Hydroxide (Magnesium Hydrox/Alum Hydrox 30 Ml Oral.Susp) 30 ml PO Q6H PRN PRN Reason: Heartburn/Nausea Artificial Tears (Artificial Tears 15 Ml Drops) 2 drop EYE-BOTH Q4H PRN PRN Reason: Dry Eyes Last Admin: 09/09/25 21:02 Dose: 2 drop Benzocaine (Throat Lozenge, Medicated Lozenge) 1 lozenge MUCOUS MEM Q2H PRN PRN Reason: Sore Throat Last Admin: 09/09/25 13:03 Dose: 1 lozenge Dicyclomine HCl (Dicyclomine Hcl 10 Mg Capsule) 20 mg PO BID LINDA Last Admin: 09/09/25 08:48 Dose: 20 mg Famotidine (Famotidine 20 Mg Tablet) 20 mg PO BID LINDA Last Admin: 09/09/25 08:48 Dose: 20 mg Gabapentin (Gabapentin 400 Mg Capsule) 800 mg PO BEDTIME LINDA Gabapentin (Gabapentin 100 Mg Capsule) 100 mg PO BID PRN PRN Reason: severe anxiety Guaifenesin (Guaifenesin La 600 Mg Tab.Er.12h) 600 mg PO BID PRN PRN Reason: Cough Last Admin: 09/09/25 13:03 Dose: 600 mg Hydroxyzine HCl (Hydroxyzine Hcl 25 Mg Tablet) 25 mg PO Q6H PRN PRN Reason: mild anxiety Last Admin: 09/09/25 00:16 Dose: 25 mg Hydroxyzine HCl (Hydroxyzine Hcl 25 Mg Tablet) 25 mg PO BEDTIME LINDA Magnesium Hydroxide (Milk Of Magnesia 30 Ml Oral.Susp) 30 ml PO DAILY PRN PRN Reason: Constipation Last Admin: 09/09/25 11:40 Dose: 30 ml Meclizine HCl (Meclizine Hcl 12.5 Mg Tablet) 12.5 mg PO TID PRN PRN Reason: Dizziness Last Admin: 09/09/25 08:48 Dose: 12.5 mg Melatonin (Melatonin 3 Mg Tablet) 6 mg PO BEDTIME LINDA Nicotine Polacrilex (Nicotine Polacrilex 2 Mg Gum) 2 mg BUCCAL Q2H PRN PRN Reason: Nicotine Cravings Ondansetron HCl (Ondansetron Odt 4 Mg Tab.Rapdis) 4 mg TRANSLINGU Q8H PRN PRN Reason: Nausea Oxcarbazepine (Oxcarbazepine 300 Mg Tablet) 300 mg PO BEDTIME LINDA Propranolol HCl (Propranolol Hcl 40 Mg Tablet) 40 mg PO BID LINDA; Protocol Last Admin: 09/09/25 08:48 Dose: 40 mg Sertraline HCl (Sertraline Hcl 25 Mg Tablet) 75 mg PO BEDTIME LINDA Last Admin: 09/08/25 23:57 Dose: 75 mg Valsartan (Valsartan 80 Mg Tablet) 80 mg PO DAILY [facility]; Protocol Last Admin: 09/09/25 08:48 Dose: 80 mg Home Medications ?Medication ?Instructions ?Recorded ?Confirmed ?Last Taken ?Type Lactobacillus rhamnosus GG 10 1 cap PO BID 09/08/25 09/08/25 Unknown History billion cell capsule (Culturelle) albuterol sulfate 90 mcg/actuation inhalation 09/08/25 09/08/25 Unknown History aerosol inhaler dicyclomine 20 mg tablet 20 mg PO BID 09/08/25 09/08/25 Unknown History famotidine 20 mg tablet 20 mg PO BID 09/08/25 09/08/25 Unknown History gabapentin 800 mg tablet 800 mg PO BEDTIME 09/08/25 09/08/25 Unknown History hydroxyzine HCl 25 mg tablet 25 mg PO DAILY 09/08/25 09/08/25 Unknown History irbesartan 150 mg tablet 150 mg PO DAILY 09/08/25 09/08/25 Unknown History meclizine 12.5 mg tablet 12.5 mg PO TID PRN Dizziness 09/08/25 09/08/25 Unknown History melatonin 5 mg tablet 5 mg PO BEDTIME PRN Sleep 09/08/25 09/08/25 Unknown History omeprazole 40 mg capsule,delayed 40 mg PO DAILY 09/08/25 09/08/25 Unknown History release ondansetron HCl 4 mg tablet 4 mg PO Q8H PRN Nausea 09/08/25 09/08/25 Unknown History polyethylene glycol 17 ea miscellaneous PRN 09/08/25 Unknown History Constipation propranolol 40 mg tablet 40 mg PO BID 09/08/25 09/08/25 Unknown History sertraline 25 mg tablet 25 mg PO BEDTIME 09/08/25 09/08/25 Unknown History sertraline 50 mg tablet 50 mg PO BEDTIME 09/08/25 09/08/25 Unknown History sucralfate 1 gram tablet 1 g PO TID 09/08/25 09/08/25 Unknown History oxcarbazepine 150 mg tablet 150 mg PO BEDTIME 09/09/25 09/09/25 Unknown History Physical Exam Vital Signs and Narrative: Vital Signs: Last Vital Signs Temp 97.5 F 09/09/25 20:00 Pulse 74 09/09/25 20:00 Resp 15 09/09/25 20:00 BP 136/69 09/09/25 20:00 Pulse Ox 96 09/09/25 20:00 O2 Del Method Room Air 09/09/25 20:00 BMI result Body Mass Index 48.3 Pt alert and orientated X3, NAD Neuro: CN II-XII intact, no deficits noted HEENT: glasses on, nares patent, oral mucosa moist, dentition in good repair Cardiac: S1S2 RRR, no murmur, no JVD, no BLE Pulm: lungs diminshed B, no adventitious sounds noted, no cough ABD: soft, NT, ND, active bowel sounds EXT: no edema, skin wamr Psych: copperaitve, calm Skin: multiple tattoos upper and lower ext, no opened wounds noted Assessment and Plan (1) HTN (hypertension): Qualifiers: Hypertension type: primary hypertension Qualified Code(s): I10 - Essential (primary) hypertension Status: Acute (2) GERD (gastroesophageal reflux disease): Qualifiers: Esophagitis presence: without esophagitis Qualified Code(s): K21.9 - Gastro-esophageal reflux disease without esophagitis Status: Acute (3) Obesity: Qualifiers: Body mass index: BMI 45.0-49.9 Obesity classification: adult class 3 (BMI >= 40) Obesity type: due to excess calories Serious obesity comorbidity presence: without serious comorbidity Qualified Code(s): E66.813 - Obesity, class 3; Z68.42 - Body mass index [BMI] 45.0-49.9, adult Status: Acute (4) Influenza A: Status: Acute Plan Pt is a 35 yo male with PMH Bipolar I, Schizoaffective DO, obesity, childhood asthma, HTN, prediabetes, chronic muscular chest pain, GERD, with wisdom teeth extractions is being seen on M5 for medical review after being transferred from [facility] for [place], [place]. Pt has the following medical problems: HTN Pt is continued on ARB with controlled blood pressures Monitor per protocol on M5 Low Na diet if possible Recent dx Influenza A Pt is outside window for Tamiflu Pt is on RA No CXR indicated currently Pt did receive flu vaccination June 2025 Wear mask when in public, and on M5 GERD Continue H2B, PPI Avoid food triggers Obesity Pt counseled on benefits of wt loss Nutritional consult recommended AIC pending Hospitalist will sign off noting labs are pending as pt has no current acute medical needs. Please reconsult or reach out with any questions or concerns, especially if labs are abnormal. We appreicate this consultation!
[2025-09-09 22:48] VITALS: BP 138/70
[2025-09-10 08:00] VITALS: BP 119/62; PULSE 67; RESP 16; TEMP 36.9; O2SAT 96
--- NOTE | 2025-09-10 09:02 | P.PNPSI_ITS ---
Subjective Subjective Date of Service: 09/10/25 Reason For Visit: F25.9 Interim History: Met with patient; discussed with team; reviewed chart Patient shared that he is starting to feel little better and is sleeping better. Thinks that some of his decompensation was because he was feeling sick. Patient shared that the intrusive thoughts of wanting to hurt himself or his mother's sister are subsiding and that he would never actually do it and never wants to harm anyone. Although he does share that when the thoughts come sometimes there is some amount of emotion and feeling some desire to act. However he says it is minimal and reiterates he would never harm anyone. Patient said that for years he has been stable on Trileptal 150 mg and Zoloft 50 mg only which was increase to 75 mg a few months ago. Reviewed his history and patient says he has been diagnosed with bipolar and schizoaffective disorder. However staff writer can not find any reported history of manic episodes; sometimes he gets irritable but it last for listened an hour; no other diagnostic symptoms and on the few times he has not insomnia it is only for a day during which time he is is tired. Patient denies any AVH or paranoid ideations. He agrees to further titrate Zoloft to 100 mg. Trileptal was just increased to 300. Mental Status Exam Mental Status Exam Narrative: Pt is alert and oriented; behavior is isolative, quiet and calm but cooperative, and mostly friendly on approach; patient is not in distress; dressed in casual attire with unkempt hair, scruffy but adequate hygiene; mood is described as better and affect congruent; eye contact appropriate; Speech is a little soft and a little slow; some psychomotor retardation present; thought process is goal directed but seems to get distracted; Thought content is with some waning intrusive thoughts; on tx and trying to understand his symptoms; otherwise pertinent to relevant topics and without any delusional content, paranoid ideations or grandiosity; denies any SI/HI. Denies AVH and there is no evidence of perceptual disturbance. Patients insight and judgment improving Diagnostics Vital Signs (24Hr): Vital Signs - 24 hr 09/09/25 20:00 09/09/25 22:48 09/10/25 08:00 Temperature 97.5 F 98.5 F Pulse Rate 74 67 Respiratory Rate 15 16 Blood Pressure 136/69 138/70 119/62 Pulse Oximetry 96 96 Oxygen Delivery Method Room Air Room Air BMI result Body Mass Index 48.3 Labs 09/10/25 09:44 Medications Medications Current Medications Acetaminophen (Acetaminophen 325 Mg Tablet) 650 mg PO Q6H PRN PRN Reason: Headache/Pain, Scale 1-10 Last Admin: 09/09/25 15:48 Dose: 650 mg Al Hydroxide/Mg Hydroxide (Magnesium Hydrox/Alum Hydrox 30 Ml Oral.Susp) 30 ml PO Q6H PRN PRN Reason: Heartburn/Nausea Artificial Tears (Artificial Tears 15 Ml Drops) 2 drop EYE-BOTH Q4H PRN PRN Reason: Dry Eyes Last Admin: 09/09/25 21:02 Dose: 2 drop Benzocaine (Throat Lozenge, Medicated Lozenge) 1 lozenge MUCOUS MEM Q2H PRN PRN Reason: Sore Throat Last Admin: 09/09/25 13:03 Dose: 1 lozenge Dicyclomine HCl (Dicyclomine Hcl 10 Mg Capsule) 20 mg PO BID LINDA Last Admin: 09/09/25 22:47 Dose: 20 mg Famotidine (Famotidine 20 Mg Tablet) 20 mg PO BID LINDA Last Admin: 09/09/25 22:50 Dose: 20 mg Gabapentin (Gabapentin 400 Mg Capsule) 800 mg PO BEDTIME LINDA Last Admin: 09/09/25 22:50 Dose: 800 mg Gabapentin (Gabapentin 100 Mg Capsule) 100 mg PO BID PRN PRN Reason: severe anxiety Guaifenesin (Guaifenesin La 600 Mg Tab.Er.12h) 600 mg PO BID PRN PRN Reason: Cough Last Admin: 09/09/25 13:03 Dose: 600 mg Hydroxyzine HCl (Hydroxyzine Hcl 25 Mg Tablet) 25 mg PO Q6H PRN PRN Reason: mild anxiety Last Admin: 09/09/25 00:16 Dose: 25 mg Hydroxyzine HCl (Hydroxyzine Hcl 25 Mg Tablet) 25 mg PO BEDTIME [facility] Last Admin: 09/09/25 22:48 Dose: 25 mg Magnesium Hydroxide (Milk Of Magnesia 30 Ml Oral.Susp) 30 ml PO DAILY PRN PRN Reason: Constipation Last Admin: 09/09/25 11:40 Dose: 30 ml Meclizine HCl (Meclizine Hcl 12.5 Mg Tablet) 12.5 mg PO TID PRN PRN Reason: Dizziness Last Admin: 09/09/25 08:48 Dose: 12.5 mg Melatonin (Melatonin 3 Mg Tablet) 6 mg PO BEDTIME LINDA Last Admin: 09/09/25 22:49 Dose: 6 mg Nicotine Polacrilex (Nicotine Polacrilex 2 Mg Gum) 2 mg BUCCAL Q2H PRN PRN Reason: Nicotine Cravings Ondansetron HCl (Ondansetron Odt 4 Mg Tab.Rapdis) 4 mg TRANSLINGU Q8H PRN PRN Reason: Nausea Oxcarbazepine (Oxcarbazepine 300 Mg Tablet) 300 mg PO BEDTIME LINDA Last Admin: 09/09/25 22:48 Dose: 300 mg Propranolol HCl (Propranolol Hcl 40 Mg Tablet) 40 mg PO BID LINDA; Protocol Last Admin: 09/09/25 22:48 Dose: 40 mg Sertraline HCl (Sertraline Hcl 25 Mg Tablet) 75 mg PO BEDTIME LINDA Last Admin: 09/09/25 22:46 Dose: 75 mg Valsartan (Valsartan 80 Mg Tablet) 80 mg PO DAILY LINDA; Protocol Last Admin: 09/09/25 08:48 Dose: 80 mg Allergies Allergies Allergy/AdvReac Type Severity Reaction Status Date / Time Sulfa (Sulfonamide Allergy Rash Verified 09/08/25 22:56 Antibiotics) trimethoprim Allergy Unknown Verified 09/08/25 22:56 aripiprazole AdvReac Muscle Verified 09/08/25 22:56 cramps lurasidone AdvReac Muscle Verified 09/08/25 22:56 cramps trazodone AdvReac Anxiety Verified 09/08/25 22:56 Assessment & Plan Assessment & Plan (1) Bipolar disorder, unspecified: Status: Acute Code(s): F31.9 - Bipolar disorder, unspecified (2) HTN (hypertension): Qualifiers: Hypertension type: primary hypertension Qualified Code(s): I10 - Essential (primary) hypertension Status: Acute Code(s): I10 - Essential (primary) hypertension (3) GERD (gastroesophageal reflux disease): Qualifiers: Esophagitis presence: without esophagitis Qualified Code(s): K21.9 - Gastro-esophageal reflux disease without esophagitis Status: Acute Code(s): K21.9 - Gastro-esophageal reflux disease without esophagitis (4) Obesity: Qualifiers: Body mass index: BMI 45.0-49.9 Obesity classification: adult class 3 (BMI >= 40) Obesity type: due to excess calories Serious obesity comorbidity presence: without serious comorbidity Qualified Code(s): E66.813 - Obesity, class 3; Z68.42 - Body mass index [BMI] 45.0-49.9, adult Status: Acute Code(s): E66.9 - Obesity, unspecified (5) Influenza A: Status: Acute Code(s): J10.1 - Influenza due to other identified influenza virus with other respiratory manifestations Plan HPI: Patient is a 35 year-old Single, Ukrainian speaking male with hx of bipolar/ schizoaffective, obesity, childhood asthma, HTN, prediabetes, chronic muscular chest pain, GERD, with wisdom teeth extractionsdisorder who presented to the ED with concerns of decompensating. Pt reported I've been having fleeting thoughts that almost seem like images to hurt my mother and my sister . Pt reports that these have been happening sporadically over the last few months but have become consistent recently. Pt reports that once these thoughts and feelings started he removed all knives and other things that can be used as weapons from his possession. Patient reports no HI/SIB. Denies hx of suicide attempts. Pt reports he is hallucinating but only at night when he is trying to sleep. Patient reports that he is not sleeping well and his appetite has been significantly lower than normal. I have not slept well for a couple of weeks or maybe longer. I got few hours here and there which affect my mental health . Patient reports that he was prescribed Amoxicillin for ear infection x10 days and believe this medications messed up everything . Report he last took it was yesterday in the ED and should be all set. Currently denies SI but it comes and goes . Feeling safe here on the unit. Denies SIB and SIB hx. Denies HI but sometimes having thoughts of hurting my sister . Report sometime HI toward mom but more toward my sister . As mention above, he gave all knives and other things can be used as weapon. report sometimes hearing voices at night but believe it is not hallucination. Family hx: Mom has Bipolar; Sister schizoaffective; sister, mom, grandfather have alcohol issues. Formulation/clinical reasoning: poor sleep in a prolong period along with poor appetite. Increased depression symptoms, SI and HI toward family members. Patient is decompensating and feeling unsafe in community. Hx of bipolar vs schizoaffective, patient would benefit in restrictive environment for safety, medication adjustment and refer patient back to OP psychiatric services for aftercare. Hospital course: 09/09/25 Melatonin 6mg at HS Increase trileptal from 150mg at HS to 300mg. Patient prefers taking meds once at HS. Montior for Sodium level. Gabapentin 100mg BID PRN for severe anxiety (d/t hx of dystonia with Abilify and Latuda, will use Cristofer for now as PRN) Hydroxyzine 25mg at HS for anxiety/sleep- report it works for him Continue with Sertraline 75mg as home dose. Have room to titrate up as patient has been taking same dose for couple months. It is noted that patient as prescribed Propranolol and Albutrerol by OP provider. Monitor for asthma symptoms. Nursing also notified. 09/10 Patient shared that he is starting to feel little better and is sleeping better. Thinks that some of his decompensation was because he was feeling sick. Patient shared that the intrusive thoughts of wanting to hurt himself or his mother's sister are subsiding and that he would never actually do it and never wants to harm anyone. Although he does share that when the thoughts come sometimes there is some amount of emotion and feeling some desire to act. However he says it is minimal and reiterates he would never harm anyone. Patient said that for years he has been stable on Trileptal 150 mg and Zoloft 50 mg only which was increase to 75 mg a few months ago. Reviewed his history and patient says he has been diagnosed with bipolar and schizoaffective disorder. However staff writer can not find any reported history of manic episodes; sometimes he gets irritable but it last for listened an hour; no other diagnostic symptoms and on the few times he has not insomnia it is only for a day during which time he is is tired. Patient denies any AVH or paranoid ideations. He agrees to further titrate Zoloft to 100 mg. Trileptal was just increased to 300. Impression: Although just meeting patient, from his receipt and report clerk can not find any evidence of bipolar disorder; maybe the some psychosis there that his yet to be uncovered and schizoaffective disorder, depressed type could fit however this too is unable to be determined at this time. For now will leave his diagnosis as is since he has been carrying it for awhile Plan cv q15 imin Continue Trileptal 300 mg; recently increased from 150 Increase Zoloft to 100 mg Work with treatment team to do collateral Contact the hospitalist regarding hospitalist consultation on admission: pending Diagnostic testing and discharge planning Pt tested positive for flu-A 09/05/25. Utox neg. U/A negative. Medication trials: latuda dystonia. abilify: dystonia. Trazodone gave him panic attack HTN Pt is continued on ARB with controlled blood pressures Monitor per protocol on M5 Low Na diet if possible Recent dx Influenza A Pt is outside window for Tamiflu Pt is on RA No CXR indicated currently Pt did receive flu vaccination June 2025 Wear mask when in public, and on M5 GERD Continue H2B, PPI Avoid food triggers Obesity Pt counseled on benefits of wt loss Nutritional consult recommended Patient educated on: diagnosis, medication risk/benefits and therapeutic strategies Informed Consent: understands, does not understand and further education needed Reason for continued inpatient stay Substantial Risk for: rapid decompensation Time Spent With Patient Time: Total time managing care of this patient today ____ minutes.
[2025-09-10 09:35] VITALS: BP 119/62; PULSE 67
[2025-09-10] MEDS: Artificial Tears 15 ML DROPS 2 DROP EYE-BOTH ×2 (09:40→16:36)
[2025-09-10 10:41] LABS: Albumin Level 4.8 g/dL (3.5-5.0); Alkaline Phosphatase 93 U/L (39-117); Anion Gap 13 (12-20); Aspartate Amino Transferase 34 U/L (5-37); Blood Urea Nitrogen 9 mg/dL (9-16); Calcium 9.3 mg/dL (8.4-10.2); Carbon Dioxide 28 mmol/L (22-29); Chloride 104 mmol/L (96-108); Cholesterol 135 mg/dL (<200); Creatinine Clr Calc Pharmacy 196.6; Estimated Glomerular Filt Rate > 60; HDL Cholesterol 33 mg/dL (>40); Potassium 3.8 mmol/L (3.3-5.1); Sodium 141 mmol/L (135-145); Total Protein 7.6 g/dL (6.5-8.0); Triglycerides 76 mg/dL (<150)
[2025-09-10 10:52] LABS: Alanine Aminotransferase 40 U/L (0-40); Free T4 (Free Thyroxine) 1.43 ng/dL (0.71-1.85); Thyroid Stimulating Hormone 0.36 uIU/mL (0.32-4.0)
[2025-09-10] MEDS: Albuterol Sulfate 90 MCG 8 GM INHALER 2 PUFF INHALE ×2 (13:21→22:07)
[2025-09-10] MEDS: guaiFENesin LA 600 MG TAB.ER.12H PO (16:36)
[2025-09-10 20:39] VITALS: BP 122/75; PULSE 73; RESP 18; TEMP 36.2; O2SAT 96
[2025-09-10] MEDS: Throat Lozenge, Medicated LOZENGE 1 LOZENGE MUCOUS MEM (22:08)
[2025-09-11 09:05] VITALS: BP 125/55; PULSE 72; RESP 18; TEMP 36.3; O2SAT 97
[2025-09-11] MEDS: Artificial Tears 15 ML DROPS 2 DROP EYE-BOTH ×2 (09:12→14:37)
[2025-09-11] MEDS: Albuterol Sulfate 90 MCG 8 GM INHALER 2 PUFF INHALE ×3 (09:12→22:22)
[2025-09-11] MEDS: guaiFENesin LA 600 MG TAB.ER.12H PO (09:13)
--- NOTE | 2025-09-11 12:13 | HO.PSYCHPN ---
Subjective Subjective Date of Service: 09/11/25 Reason For Visit: F25.9 Interim History: Met with patient; discussed with team; reviewed chart Patient reports tolerating the medication changes well. Denies side effects. Sleep is good. Denies active SI. Says they come an occasion but has no intent of harming self. Denies AVH. Mental Status Exam Mental Status Exam Narrative: Pt is alert and oriented; behavior is isolative, quiet and calm but cooperative, and mostly friendly on approach; patient is not in distress; dressed in casual attire with unkempt hair, scruffy but adequate hygiene; mood is described as better and affect congruent; eye contact appropriate; Speech is a little soft and a little slow; some psychomotor retardation present; thought process is goal directed but seems to get distracted; Thought content is with some waning intrusive thoughts; on tx and trying to understand his symptoms; otherwise pertinent to relevant topics and without any delusional content, paranoid ideations or grandiosity; denies any SI/HI. Denies AVH and there is no evidence of perceptual disturbance. Patients insight and judgment improving Diagnostics Vital Signs (24Hr): Vital Signs - 24 hr 09/10/25 20:39 09/11/25 09:05 Temperature 97.1 F 97.3 F Pulse Rate 73 72 Respiratory Rate 18 18 Blood Pressure 122/75 125/55 L Pulse Oximetry 96 97 Oxygen Delivery Method Room Air Room Air BMI result Body Mass Index 48.3 Labs 09/10/25 09:44 Labs: Laboratory Results - last 48 hr 09/10/25 09:44 Sodium 141 Potassium 3.8 Chloride 104 Carbon Dioxide 28 Anion Gap 13 BUN 9 Creatinine 0.68 Estim Creat Clear Calc 196.6 Estimated GFR > 60 Random Glucose 145 H Estimat Average Glucose 108 Hemoglobin A1c % 5.4 Calcium 9.3 Total Bilirubin 0.3 AST 34 ALT 40 Alkaline Phosphatase 93 Total Protein 7.6 Albumin 4.8 Triglycerides 76 Cholesterol 135 LDL Cholesterol, Calc 87 HDL Cholesterol 33 L TSH 0.36 Free T4 1.43 Medications Medications Current Medications Acetaminophen (Acetaminophen 325 Mg Tablet) 650 mg PO Q6H PRN PRN Reason: Headache/Pain, Scale 1-10 Last Admin: 09/11/25 11:52 Dose: 650 mg Al Hydroxide/Mg Hydroxide (Magnesium Hydrox/Alum Hydrox 30 Ml Oral.Susp) 30 ml PO Q6H PRN PRN Reason: Heartburn/Nausea Albuterol Sulfate (Albuterol Sulfate 90 Mcg 8 Gm Inhaler) 2 puff INHALE RQ4H PRN PRN Reason: sob Last Admin: 09/11/25 09:12 Dose: 2 puff Artificial Tears (Artificial Tears 15 Ml Drops) 2 drop EYE-BOTH Q4H PRN PRN Reason: Dry Eyes Last Admin: 09/11/25 09:12 Dose: 2 drop Benzocaine (Throat Lozenge, Medicated Lozenge) 1 lozenge MUCOUS MEM Q2H PRN PRN Reason: Sore Throat Last Admin: 09/10/25 22:08 Dose: 1 lozenge Dicyclomine HCl (Dicyclomine Hcl 10 Mg Capsule) 20 mg PO BID LINDA Last Admin: 09/11/25 09:07 Dose: 20 mg Famotidine (Famotidine 20 Mg Tablet) 20 mg PO BID LINDA Last Admin: 09/11/25 09:08 Dose: 20 mg Gabapentin (Gabapentin 400 Mg Capsule) 800 mg PO BEDTIME [facility] Last Admin: 09/10/25 22:03 Dose: 800 mg Gabapentin (Gabapentin 100 Mg Capsule) 100 mg PO BID PRN PRN Reason: severe anxiety Guaifenesin (Guaifenesin La 600 Mg Tab.Er.12h) 600 mg PO BID PRN PRN Reason: Cough Last Admin: 09/11/25 09:13 Dose: 600 mg Hydroxyzine HCl (Hydroxyzine Hcl 25 Mg Tablet) 25 mg PO Q6H PRN PRN Reason: mild anxiety Last Admin: 09/09/25 00:16 Dose: 25 mg Hydroxyzine HCl (Hydroxyzine Hcl 25 Mg Tablet) 25 mg PO BEDTIME LINDA Last Admin: 09/10/25 22:05 Dose: 25 mg Magnesium Hydroxide (Milk Of Magnesia 30 Ml Oral.Susp) 30 ml PO DAILY PRN PRN Reason: Constipation Last Admin: 09/09/25 11:40 Dose: 30 ml Meclizine HCl (Meclizine Hcl 12.5 Mg Tablet) 12.5 mg PO TID PRN PRN Reason: Dizziness Last Admin: 09/11/25 11:52 Dose: 12.5 mg Melatonin (Melatonin 3 Mg Tablet) 6 mg PO BEDTIME LINDA Last Admin: 09/10/25 22:04 Dose: 6 mg Metoclopramide HCl (Metoclopramide Hcl 10 Mg Tablet) 10 mg PO Q6H PRN PRN Reason: Nausea and Vomiting Nicotine Polacrilex (Nicotine Polacrilex 2 Mg Gum) 2 mg BUCCAL Q2H PRN PRN Reason: Nicotine Cravings Ondansetron HCl (Ondansetron Odt 4 Mg Tab.Rapdis) 4 mg TRANSLINGU Q8H PRN PRN Reason: Nausea Oxcarbazepine (Oxcarbazepine 300 Mg Tablet) 300 mg PO BEDTIME [facility] Last Admin: 09/10/25 22:02 Dose: 300 mg Propranolol HCl (Propranolol Hcl 40 Mg Tablet) 40 mg PO BID LINDA; Protocol Last Admin: 09/11/25 09:08 Dose: 40 mg Sertraline HCl (Sertraline Hcl 100 Mg Tablet) 100 mg PO BEDTIME LINDA Last Admin: 09/10/25 22:02 Dose: 100 mg Sucralfate (Sucralfate 1 Gm Tablet) 1 gm PO BIDAC [facility] Last Admin: 09/11/25 10:43 Dose: 1 gm Valsartan (Valsartan 80 Mg Tablet) 80 mg PO DAILY [facility]; Protocol Last Admin: 09/11/25 09:08 Dose: 80 mg Allergies Allergies Allergy/AdvReac Type Severity Reaction Status Date / Time Sulfa (Sulfonamide Allergy Rash Verified 09/08/25 22:56 Antibiotics) trimethoprim Allergy Unknown Verified 09/08/25 22:56 aripiprazole AdvReac Muscle Verified 09/08/25 22:56 cramps lurasidone AdvReac Muscle Verified 09/08/25 22:56 cramps trazodone AdvReac Anxiety Verified 09/08/25 22:56 Assessment & Plan Assessment & Plan (1) Bipolar disorder, unspecified: Status: Acute Code(s): F31.9 - Bipolar disorder, unspecified (2) HTN (hypertension): Qualifiers: Hypertension type: primary hypertension Qualified Code(s): I10 - Essential (primary) hypertension Status: Acute Code(s): I10 - Essential (primary) hypertension (3) GERD (gastroesophageal reflux disease): Qualifiers: Esophagitis presence: without esophagitis Qualified Code(s): K21.9 - Gastro-esophageal reflux disease without esophagitis Status: Acute Code(s): K21.9 - Gastro-esophageal reflux disease without esophagitis (4) Obesity: Qualifiers: Body mass index: BMI 45.0-49.9 Obesity classification: adult class 3 (BMI >= 40) Obesity type: due to excess calories Serious obesity comorbidity presence: without serious comorbidity Qualified Code(s): E66.813 - Obesity, class 3; Z68.42 - Body mass index [BMI] 45.0-49.9, adult Status: Acute Code(s): E66.9 - Obesity, unspecified (5) Influenza A: Status: Acute Code(s): J10.1 - Influenza due to other identified influenza virus with other respiratory manifestations Plan HPI: Patient is a 35 year-old Single, Kuwaiti speaking male with hx of bipolar/ schizoaffective, obesity, childhood asthma, HTN, prediabetes, chronic muscular chest pain, GERD, with wisdom teeth extractionsdisorder who presented to the ED with concerns of decompensating. Pt reported I've been having fleeting thoughts that almost seem like images to hurt my mother and my sister . Pt reports that these have been happening sporadically over the last few months but have become consistent recently. Pt reports that once these thoughts and feelings started he removed all knives and other things that can be used as weapons from his possession. Patient reports no HI/SIB. Denies hx of suicide attempts. Pt reports he is hallucinating but only at night when he is trying to sleep. Patient reports that he is not sleeping well and his appetite has been significantly lower than normal. I have not slept well for a couple of weeks or maybe longer. I got few hours here and there which affect my mental health . Patient reports that he was prescribed Amoxicillin for ear infection x10 days and believe this medications messed up everything . Report he last took it was yesterday in the ED and should be all set. Currently denies SI but it comes and goes . Feeling safe here on the unit. Denies SIB and SIB hx. Denies HI but sometimes having thoughts of hurting my sister . Report sometime HI toward mom but more toward my sister . As mention above, he gave all knives and other things can be used as weapon. report sometimes hearing voices at night but believe it is not hallucination. Family hx: Mom has Bipolar; Sister schizoaffective; sister, mom, grandfather have alcohol issues. Formulation/clinical reasoning: poor sleep in a prolong period along with poor appetite. Increased depression symptoms, SI and HI toward family members. Patient is decompensating and feeling unsafe in community. Hx of bipolar vs schizoaffective, patient would benefit in restrictive environment for safety, medication adjustment and refer patient back to OP psychiatric services for aftercare. Hospital course: 09/09/25 Melatonin 6mg at HS Increase trileptal from 150mg at HS to 300mg. Patient prefers taking meds once at HS. Montior for Sodium level. Gabapentin 100mg BID PRN for severe anxiety (d/t hx of dystonia with Abilify and Latuda, will use Cristofer for now as PRN) Hydroxyzine 25mg at HS for anxiety/sleep- report it works for him Continue with Sertraline 75mg as home dose. Have room to titrate up as patient has been taking same dose for couple months. It is noted that patient as prescribed Propranolol and Albutrerol by OP provider. Monitor for asthma symptoms. Nursing also notified. 09/10 Patient shared that he is starting to feel little better and is sleeping better. Thinks that some of his decompensation was because he was feeling sick. Patient shared that the intrusive thoughts of wanting to hurt himself or his mother's sister are subsiding and that he would never actually do it and never wants to harm anyone. Although he does share that when the thoughts come sometimes there is some amount of emotion and feeling some desire to act. However he says it is minimal and reiterates he would never harm anyone. Patient said that for years he has been stable on Trileptal 150 mg and Zoloft 50 mg only which was increase to 75 mg a few months ago. Reviewed his history and patient says he has been diagnosed with bipolar and schizoaffective disorder. However writer producer can not find any reported history of manic episodes; sometimes he gets irritable but it last for listened an hour; no other diagnostic symptoms and on the few times he has not insomnia it is only for a day during which time he is is tired. Patient denies any AVH or paranoid ideations. He agrees to further titrate Zoloft to 100 mg. Trileptal was just increased to 300. 09/11: Continue current management and treatment plan. Recent increase in Trileptal and Zoloft.. Impression: Although just meeting patient, from his reporter anchor can not find any evidence of bipolar disorder; maybe the some psychosis there that his yet to be uncovered and schizoaffective disorder, depressed type could fit however this too is unable to be determined at this time. For now will leave his diagnosis as is since he has been carrying it for awhile Plan cv q15 imin Continue Trileptal 300 mg; recently increased from 150 Increase Zoloft to 100 mg Work with treatment team to do collateral Contact the hospitalist regarding hospitalist consultation on admission: pending Diagnostic testing and discharge planning Pt tested positive for flu-A 09/05/25. Utox neg. U/A negative. Medication trials: latuda dystonia. abilify: dystonia. Trazodone gave him panic attack HTN Pt is continued on ARB with controlled blood pressures Monitor per protocol on M5 Low Na diet if possible Recent dx Influenza A Pt is outside window for Tamiflu Pt is on RA No CXR indicated currently Pt did receive flu vaccination June 2025 Wear mask when in public, and on M5 GERD Continue H2B, PPI Avoid food triggers Obesity Pt counseled on benefits of wt loss Nutritional consult recommended Patient educated on: diagnosis, medication risk/benefits and therapeutic strategies Informed Consent: understands, does not understand and further education needed Reason for continued inpatient stay Substantial Risk for: rapid decompensation Time Spent With Patient Time: Total time managing care of this patient today ____ minutes.
[2025-09-11] MEDS: Throat Lozenge, Medicated LOZENGE 1 LOZENGE MUCOUS MEM ×2 (16:56→22:22)
[2025-09-11 20:31] VITALS: BP 122/73; PULSE 71; RESP 16; TEMP 36.1; O2SAT 98
[2025-09-12 08:11] VITALS: BP 110/62; PULSE 72; TEMP 36.3; O2SAT 96
--- NOTE | 2025-09-12 10:36 | HO.PSYCHPN ---
Subjective Subjective Date of Service: 09/12/25 Reason For Visit: F25.9 Interim History: Met with patient; discussed with team; reviewed chart Had some hip pain earlier and was given Ibuprofen with benefit. He reports overall improvement. Tolerating medications well. Denies side effects. Sleep is good. Denies active SI. Has no intent of harming self. Denies AVH. Review of Systems Review of Systems Pt denies currentlyl chest pain, SOB at rest, or with exertion, STONE, abd pain, N/V. Mental Status Exam Mental Status Exam Narrative: Pt is alert and oriented; behavior is isolative, quiet and calm but cooperative, and mostly friendly on approach; patient is not in distress; dressed in casual attire with unkempt hair, scruffy but adequate hygiene; mood is described as better and affect congruent; eye contact appropriate; Speech is a little soft and a little slow; some psychomotor retardation present; thought process is goal directed but seems to get distracted; Thought content is with some waning intrusive thoughts; on tx and trying to understand his symptoms; otherwise pertinent to relevant topics and without any delusional content, paranoid ideations or grandiosity; denies any SI/HI. Denies AVH and there is no evidence of perceptual disturbance. Patients insight and judgment improving Diagnostics Vital Signs (24Hr): Vital Signs - 24 hr 09/11/25 20:31 09/12/25 08:11 Temperature 97.0 F 97.3 F Pulse Rate 71 72 Respiratory Rate 16 Blood Pressure 122/73 110/62 Pulse Oximetry 98 96 Oxygen Delivery Method Room Air Room Air BMI result Body Mass Index 48.3 Labs 09/10/25 09:44 Labs: Laboratory Results - last 48 hr 09/10/25 09:44 Sodium 141 Potassium 3.8 Chloride 104 Carbon Dioxide 28 Anion Gap 13 BUN 9 Creatinine 0.68 Estim Creat Clear Calc 196.6 Estimated GFR > 60 Random Glucose 145 H Calcium 9.3 Total Bilirubin 0.3 AST 34 ALT 40 Alkaline Phosphatase 93 Total Protein 7.6 Albumin 4.8 Triglycerides 76 Cholesterol 135 LDL Cholesterol, Calc 87 HDL Cholesterol 33 L TSH 0.36 Free T4 1.43 Medications Medications Current Medications Acetaminophen (Acetaminophen 325 Mg Tablet) 650 mg PO Q6H PRN PRN Reason: Headache/Pain, Scale 1-10 Last Admin: 09/12/25 10:03 Dose: 650 mg Al Hydroxide/Mg Hydroxide (Magnesium Hydrox/Alum Hydrox 30 Ml Oral.Susp) 30 ml PO Q6H PRN PRN Reason: Heartburn/Nausea Albuterol Sulfate (Albuterol Sulfate 90 Mcg 8 Gm Inhaler) 2 puff INHALE RQ4H PRN PRN Reason: sob Last Admin: 09/11/25 22:22 Dose: 2 puff Artificial Tears (Artificial Tears 15 Ml Drops) 2 drop EYE-BOTH Q4H PRN PRN Reason: Dry Eyes Last Admin: 09/11/25 14:37 Dose: 2 drop Benzocaine (Throat Lozenge, Medicated Lozenge) 1 lozenge MUCOUS MEM Q2H PRN PRN Reason: Sore Throat Last Admin: 09/11/25 22:22 Dose: 1 lozenge Dicyclomine HCl (Dicyclomine Hcl 10 Mg Capsule) 20 mg PO BID [facility] Last Admin: 09/12/25 08:48 Dose: 20 mg Famotidine (Famotidine 20 Mg Tablet) 20 mg PO BID [facility] Last Admin: 09/12/25 08:46 Dose: 20 mg Gabapentin (Gabapentin 400 Mg Capsule) 800 mg PO BEDTIME [facility] Last Admin: 09/11/25 22:26 Dose: 800 mg Gabapentin (Gabapentin 100 Mg Capsule) 100 mg PO BID PRN PRN Reason: severe anxiety Guaifenesin (Guaifenesin La 600 Mg Tab.Er.12h) 600 mg PO BID PRN PRN Reason: Cough Last Admin: 09/11/25 09:13 Dose: 600 mg Hydroxyzine HCl (Hydroxyzine Hcl 25 Mg Tablet) 25 mg PO Q6H PRN PRN Reason: mild anxiety Last Admin: 09/09/25 00:16 Dose: 25 mg Hydroxyzine HCl (Hydroxyzine Hcl 25 Mg Tablet) 25 mg PO BEDTIME [facility] Last Admin: 09/11/25 22:24 Dose: 25 mg Ibuprofen (Ibuprofen 400 Mg Tablet) 400 mg PO Q6H PRN PRN Reason: Pain, Moderate(Pain Scale 4-6) Magnesium Hydroxide (Milk Of Magnesia 30 Ml Oral.Susp) 30 ml PO DAILY PRN PRN Reason: Constipation Last Admin: 09/09/25 11:40 Dose: 30 ml Meclizine HCl (Meclizine Hcl 12.5 Mg Tablet) 12.5 mg PO TID PRN PRN Reason: Dizziness Last Admin: 09/11/25 11:52 Dose: 12.5 mg Melatonin (Melatonin 3 Mg Tablet) 6 mg PO BEDTIME [facility] Last Admin: 09/11/25 22:25 Dose: 6 mg Metoclopramide HCl (Metoclopramide Hcl 10 Mg Tablet) 10 mg PO Q6H PRN PRN Reason: Nausea and Vomiting Nicotine Polacrilex (Nicotine Polacrilex 2 Mg Gum) 2 mg BUCCAL Q2H PRN PRN Reason: Nicotine Cravings Ondansetron HCl (Ondansetron Odt 4 Mg Tab.Rapdis) 4 mg TRANSLINGU Q8H PRN PRN Reason: Nausea Oxcarbazepine (Oxcarbazepine 300 Mg Tablet) 300 mg PO BEDTIME LINDA Last Admin: 09/11/25 22:24 Dose: 300 mg Propranolol HCl (Propranolol Hcl 40 Mg Tablet) 40 mg PO BID LINDA; Protocol Last Admin: 09/12/25 08:46 Dose: 40 mg Sertraline HCl (Sertraline Hcl 100 Mg Tablet) 100 mg PO BEDTIME [facility]DA Last Admin: 09/11/25 22:26 Dose: 100 mg Sucralfate (Sucralfate 1 Gm Tablet) 1 gm PO BIDAC LINDA Last Admin: 09/12/25 08:07 Dose: 1 gm Valsartan (Valsartan 80 Mg Tablet) 80 mg PO DAILY LINDA; Protocol Last Admin: 09/12/25 08:47 Dose: 80 mg Allergies Allergies Allergy/AdvReac Type Severity Reaction Status Date / Time Sulfa (Sulfonamide Allergy Rash Verified 09/08/25 22:56 Antibiotics) trimethoprim Allergy Unknown Verified 09/08/25 22:56 aripiprazole AdvReac Muscle Verified 09/08/25 22:56 cramps lurasidone AdvReac Muscle Verified 09/08/25 22:56 cramps trazodone AdvReac Anxiety Verified 09/08/25 22:56 Assessment & Plan Assessment & Plan (1) Bipolar disorder, unspecified: Status: Acute Code(s): F31.9 - Bipolar disorder, unspecified (2) HTN (hypertension): Qualifiers: Hypertension type: primary hypertension Qualified Code(s): I10 - Essential (primary) hypertension Status: Acute Code(s): I10 - Essential (primary) hypertension (3) GERD (gastroesophageal reflux disease): Qualifiers: Esophagitis presence: without esophagitis Qualified Code(s): K21.9 - Gastro-esophageal reflux disease without esophagitis Status: Acute Code(s): K21.9 - Gastro-esophageal reflux disease without esophagitis (4) Obesity: Qualifiers: Body mass index: BMI 45.0-49.9 Obesity classification: adult class 3 (BMI >= 40) Obesity type: due to excess calories Serious obesity comorbidity presence: without serious comorbidity Qualified Code(s): E66.813 - Obesity, class 3; Z68.42 - Body mass index [BMI] 45.0-49.9, adult Status: Acute Code(s): E66.9 - Obesity, unspecified (5) Influenza A: Status: Acute Code(s): J10.1 - Influenza due to other identified influenza virus with other respiratory manifestations Plan HPI: Patient is a 35 year-old Single, Amharic speaking male with hx of bipolar/ schizoaffective, obesity, childhood asthma, HTN, prediabetes, chronic muscular chest pain, GERD, with wisdom teeth extractionsdisorder who presented to the ED with concerns of decompensating. Pt reported I've been having fleeting thoughts that almost seem like images to hurt my mother and my sister . Pt reports that these have been happening sporadically over the last few months but have become consistent recently. Pt reports that once these thoughts and feelings started he removed all knives and other things that can be used as weapons from his possession. Patient reports no HI/SIB. Denies hx of suicide attempts. Pt reports he is hallucinating but only at night when he is trying to sleep. Patient reports that he is not sleeping well and his appetite has been significantly lower than normal. I have not slept well for a couple of weeks or maybe longer. I got few hours here and there which affect my mental health . Patient reports that he was prescribed Amoxicillin for ear infection x10 days and believe this medications messed up everything . Report he last took it was yesterday in the ED and should be all set. Currently denies SI but it comes and goes . Feeling safe here on the unit. Denies SIB and SIB hx. Denies HI but sometimes having thoughts of hurting my sister . Report sometime HI toward mom but more toward my sister . As mention above, he gave all knives and other things can be used as weapon. report sometimes hearing voices at night but believe it is not hallucination. Family hx: Mom has Bipolar; Sister schizoaffective; sister, mom, grandfather have alcohol issues. Formulation/clinical reasoning: poor sleep in a prolong period along with poor appetite. Increased depression symptoms, SI and HI toward family members. Patient is decompensating and feeling unsafe in community. Hx of bipolar vs schizoaffective, patient would benefit in restrictive environment for safety, medication adjustment and refer patient back to OP psychiatric services for aftercare. Hospital course: 09/09/25 Melatonin 6mg at HS Increase trileptal from 150mg at HS to 300mg. Patient prefers taking meds once at HS. Montior for Sodium level. Gabapentin 100mg BID PRN for severe anxiety (d/t hx of dystonia with Abilify and Latuda, will use Cristofer for now as PRN) Hydroxyzine 25mg at HS for anxiety/sleep- report it works for him Continue with Sertraline 75mg as home dose. Have room to titrate up as patient has been taking same dose for couple months. It is noted that patient as prescribed Propranolol and Albutrerol by OP provider. Monitor for asthma symptoms. Nursing also notified. 09/10 Patient shared that he is starting to feel little better and is sleeping better. Thinks that some of his decompensation was because he was feeling sick. Patient shared that the intrusive thoughts of wanting to hurt himself or his mother's sister are subsiding and that he would never actually do it and never wants to harm anyone. Although he does share that when the thoughts come sometimes there is some amount of emotion and feeling some desire to act. However he says it is minimal and reiterates he would never harm anyone. Patient said that for years he has been stable on Trileptal 150 mg and Zoloft 50 mg only which was increase to 75 mg a few months ago. Reviewed his history and patient says he has been diagnosed with bipolar and schizoaffective disorder. However technical writer can not find any reported history of manic episodes; sometimes he gets irritable but it last for listened an hour; no other diagnostic symptoms and on the few times he has not insomnia it is only for a day during which time he is is tired. Patient denies any AVH or paranoid ideations. He agrees to further titrate Zoloft to 100 mg. Trileptal was just increased to 300. 09/11: Continue current management and treatment plan. Recent increase in Trileptal and Zoloft 09/12: Continue current management and treatment plan. Impression: Although just meeting patient, from his manager report can not find any evidence of bipolar disorder; maybe the some psychosis there that his yet to be uncovered and schizoaffective disorder, depressed type could fit however this too is unable to be determined at this time. For now will leave his diagnosis as is since he has been carrying it for awhile Plan cv q15 imin Continue Trileptal 300 mg; recently increased from 150 Increase Zoloft to 100 mg Work with treatment team to do collateral Contact the hospitalist regarding hospitalist consultation on admission: pending Diagnostic testing and discharge planning Pt tested positive for flu-A 09/05/25. Utox neg. U/A negative. Medication trials: latuda dystonia. abilify: dystonia. Trazodone gave him panic attack HTN Pt is continued on ARB with controlled blood pressures Monitor per protocol on M5 Low Na diet if possible Recent dx Influenza A Pt is outside window for Tamiflu Pt is on RA No CXR indicated currently Pt did receive flu vaccination June 2025 Wear mask when in public, and on M5 GERD Continue H2B, PPI Avoid food triggers Obesity Pt counseled on benefits of wt loss Nutritional consult recommended Reason for continued inpatient stay Substantial Risk for: harm to self and rapid decompensation Time Spent With Patient Time: Total time managing care of this patient today ____ minutes.
[2025-09-12] MEDS: Artificial Tears 15 ML DROPS 2 DROP EYE-BOTH (10:39)
[2025-09-12] MEDS: Throat Lozenge, Medicated LOZENGE 1 LOZENGE MUCOUS MEM ×2 (13:03→22:07)
[2025-09-12 20:16] VITALS: BP 132/90; PULSE 77; RESP 18; TEMP 36.3; O2SAT 96
[2025-09-12] MEDS: Albuterol Sulfate 90 MCG 8 GM INHALER 2 PUFF INHALE (22:01)
[2025-09-13 08:00] VITALS: BP 119/65; PULSE 70; RESP 15; TEMP 36.9; O2SAT 96
[2025-09-13 09:22] VITALS: BP 119/65; PULSE 89
[2025-09-13 09:24] VITALS: BP 119/65
[2025-09-13] MEDS: Albuterol Sulfate 90 MCG 8 GM INHALER 2 PUFF INHALE ×2 (09:25→22:39)
[2025-09-13] MEDS: Artificial Tears 15 ML DROPS 2 DROP EYE-BOTH (09:25)
--- NOTE | 2025-09-13 09:42 | P.PNPSI_ITS ---
Subjective Subjective Date of Service: 09/13/25 Reason For Visit: F25.9 Interim History: With patient; discussed with team Patient reports that he is feeling better and says that he is still having intrusive SI thoughts but much less so. He says last week they were pretty constant.. Andnow only 4-5 times a day and not bad.... Patient will get triggered by items he sees on television and having intrusive thought of using that item to hurt himself (and much less frequently, his mother/sister) but he says only last for a few minutes and resolves on its own which he feels is much improvement. He is feeling at this point he could probably go back home but he would like these thoughts to get back down to 0 times a day; despite intrusive SI thoughts, patient has no actual desire or active thoughts to harm himself or others. Account Adjuster discussed diagnosis and OCD symptoms; patient says that he can have excessive cleaning sometimes but did not realize intrusive thoughts could be a part of it. Discussed medication and he agrees to increase Zoloft to 125 mg Mental Status Exam Mental Status Exam Narrative: Pt is alert and oriented; behavior is a little more social in the milieu; remains overall quiet; cooperative and friendly on approach;patient is not in distress; dressed in casual attire with unkempt hair, scruffy but adequate hygiene; mood is described as better and affect congruent; eye contact appropriate; Speech is a normal rate, volume and prosody; no psychomotor retardation present; thought process is linear and logical; Thought content is on treatment; some waning intrusive SI thoughts; otherwise pertinent to relevant topics and without any delusional content, paranoid ideations or grandiosity; no SI/HI; Denies AVH and there is no evidence of perceptual disturbance. Patients insight and judgment fair Diagnostics Vital Signs (24Hr): Vital Signs - 24 hr 09/12/25 20:16 09/13/25 08:00 09/13/25 09:22 Temperature 97.3 F 98.5 F Pulse Rate 77 70 89 Respiratory Rate 18 15 Blood Pressure 132/90 H 119/65 119/65 Pulse Oximetry 96 96 Oxygen Delivery Method Room Air Room Air 09/13/25 09:24 Temperature Pulse Rate Respiratory Rate Blood Pressure 119/65 Pulse Oximetry Oxygen Delivery Method BMI result Body Mass Index 48.3 Labs 09/10/25 09:44 Medications Medications Current Medications Acetaminophen (Acetaminophen 325 Mg Tablet) 650 mg PO Q6H PRN PRN Reason: Headache/Pain, Scale 1-10 Last Admin: 09/12/25 10:03 Dose: 650 mg Al Hydroxide/Mg Hydroxide (Magnesium Hydrox/Alum Hydrox 30 Ml Oral.Susp) 30 ml PO Q6H PRN PRN Reason: Heartburn/Nausea Albuterol Sulfate (Albuterol Sulfate 90 Mcg 8 Gm Inhaler) 2 puff INHALE RQ4H PRN PRN Reason: sob Last Admin: 09/13/25 09:25 Dose: 2 puff Artificial Tears (Artificial Tears 15 Ml Drops) 2 drop EYE-BOTH Q4H PRN PRN Reason: Dry Eyes Last Admin: 09/13/25 09:25 Dose: 2 drop Benzocaine (Throat Lozenge, Medicated Lozenge) 1 lozenge MUCOUS MEM Q2H PRN PRN Reason: Sore Throat Last Admin: 09/12/25 22:07 Dose: 1 lozenge Dicyclomine HCl (Dicyclomine Hcl 10 Mg Capsule) 20 mg PO BID [facility] Last Admin: 09/13/25 09:21 Dose: 20 mg Famotidine (Famotidine 20 Mg Tablet) 20 mg PO BID [facility] Last Admin: 09/13/25 09:20 Dose: 20 mg Gabapentin (Gabapentin 400 Mg Capsule) 800 mg PO BEDTIME [facility] Last Admin: 09/12/25 22:05 Dose: 800 mg Gabapentin (Gabapentin 100 Mg Capsule) 100 mg PO BID PRN PRN Reason: severe anxiety Guaifenesin (Guaifenesin La 600 Mg Tab.Er.12h) 600 mg PO BID PRN PRN Reason: Cough Last Admin: 09/11/25 09:13 Dose: 600 mg Hydroxyzine HCl (Hydroxyzine Hcl 25 Mg Tablet) 25 mg PO Q6H PRN PRN Reason: mild anxiety Last Admin: 09/09/25 00:16 Dose: 25 mg Hydroxyzine HCl (Hydroxyzine Hcl 25 Mg Tablet) 25 mg PO BEDTIME [facility] Last Admin: 09/12/25 22:04 Dose: 25 mg Ibuprofen (Ibuprofen 400 Mg Tablet) 400 mg PO Q6H PRN PRN Reason: Pain, Moderate(Pain Scale 4-6) Last Admin: 09/12/25 10:39 Dose: 400 mg Magnesium Hydroxide (Milk Of Magnesia 30 Ml Oral.Susp) 30 ml PO DAILY PRN PRN Reason: Constipation Last Admin: 09/09/25 11:40 Dose: 30 ml Meclizine HCl (Meclizine Hcl 12.5 Mg Tablet) 12.5 mg PO TID PRN PRN Reason: Dizziness Last Admin: 09/13/25 09:28 Dose: 12.5 mg Melatonin (Melatonin 3 Mg Tablet) 6 mg PO BEDTIME [facility] Last Admin: 09/12/25 22:06 Dose: 6 mg Metoclopramide HCl (Metoclopramide Hcl 10 Mg Tablet) 10 mg PO Q6H PRN PRN Reason: Nausea and Vomiting Last Admin: 09/13/25 09:29 Dose: 10 mg Nicotine Polacrilex (Nicotine Polacrilex 2 Mg Gum) 2 mg BUCCAL Q2H PRN PRN Reason: Nicotine Cravings Ondansetron HCl (Ondansetron Odt 4 Mg Tab.Rapdis) 4 mg TRANSLINGU Q8H PRN PRN Reason: Nausea Oxcarbazepine (Oxcarbazepine 300 Mg Tablet) 300 mg PO BEDTIME [facility] Last Admin: 09/12/25 22:06 Dose: 300 mg Propranolol HCl (Propranolol Hcl 40 Mg Tablet) 40 mg PO BID [facility]; Protocol Last Admin: 09/13/25 09:22 Dose: 40 mg Sertraline HCl (Sertraline Hcl 100 Mg Tablet) 100 mg PO BEDTIME [facility] Last Admin: 09/12/25 22:02 Dose: 100 mg Sucralfate (Sucralfate 1 Gm Tablet) 1 gm PO BIDAC [facility] Last Admin: 09/13/25 09:20 Dose: 1 gm Valsartan (Valsartan 80 Mg Tablet) 80 mg PO DAILY [facility]; Protocol Last Admin: 09/13/25 09:24 Dose: 80 mg Allergies Allergies Allergy/AdvReac Type Severity Reaction Status Date / Time Sulfa (Sulfonamide Allergy Rash Verified 09/08/25 22:56 Antibiotics) trimethoprim Allergy Unknown Verified 09/08/25 22:56 aripiprazole AdvReac Muscle Verified 09/08/25 22:56 cramps lurasidone AdvReac Muscle Verified 09/08/25 22:56 cramps trazodone AdvReac Anxiety Verified 09/08/25 22:56 Assessment & Plan Assessment & Plan (1) Bipolar disorder, unspecified: Status: Acute Code(s): F31.9 - Bipolar disorder, unspecified (2) OCD (obsessive compulsive disorder): Status: Acute Code(s): F42.9 - Obsessive-compulsive disorder, unspecified (3) HTN (hypertension): Qualifiers: Hypertension type: primary hypertension Qualified Code(s): I10 - Essential (primary) hypertension Status: Acute Code(s): I10 - Essential (primary) hypertension (4) GERD (gastroesophageal reflux disease): Qualifiers: Esophagitis presence: without esophagitis Qualified Code(s): K21.9 - Gastro-esophageal reflux disease without esophagitis Status: Acute Code(s): K21.9 - Gastro-esophageal reflux disease without esophagitis (5) Obesity: Qualifiers: Body mass index: BMI 45.0-49.9 Obesity classification: adult class 3 (BMI >= 40) Obesity type: due to excess calories Serious obesity comorbidity presence: without serious comorbidity Qualified Code(s): E66.813 - Obesity, class 3; Z68.42 - Body mass index [BMI] 45.0-49.9, adult Status: Acute Code(s): E66.9 - Obesity, unspecified (6) Influenza A: Status: Acute Code(s): J10.1 - Influenza due to other identified influenza virus with other respiratory manifestations Plan HPI: Patient is a 35 year-old Single, Macedonian speaking male with hx of bipolar/ schizoaffective, obesity, childhood asthma, HTN, prediabetes, chronic muscular chest pain, GERD, with wisdom teeth extractionsdisorder who presented to the ED with concerns of decompensating. Pt reported I've been having fleeting thoughts that almost seem like images to hurt my mother and my sister . Pt reports that these have been happening sporadically over the last few months but have become consistent recently. Pt reports that once these thoughts and feelings started he removed all knives and other things that can be used as weapons from his possession. Patient reports no HI/SIB. Denies hx of suicide attempts. Pt reports he is hallucinating but only at night when he is trying to sleep. Patient reports that he is not sleeping well and his appetite has been significantly lower than normal. I have not slept well for a couple of weeks or maybe longer. I got few hours here and there which affect my mental health . Patient reports that he was prescribed Amoxicillin for ear infection x10 days and believe this medications messed up everything . Report he last took it was yesterday in the ED and should be all set. Currently denies SI but it comes and goes . Feeling safe here on the unit. Denies SIB and SIB hx. Denies HI but sometimes having thoughts of hurting my sister . Report sometime HI toward mom but more toward my sister . As mention above, he gave all knives and other things can be used as weapon. report sometimes hearing voices at night but believe it is not hallucination. Family hx: Mom has Bipolar; Sister schizoaffective; sister, mom, grandfather have alcohol issues. Formulation/clinical reasoning: poor sleep in a prolong period along with poor appetite. Increased depression symptoms, SI and HI toward family members. Patient is decompensating and feeling unsafe in community. Hx of bipolar vs schizoaffective, patient would benefit in restrictive environment for safety, medication adjustment and refer patient back to OP psychiatric services for aftercare. Hospital course: 09/09/25 Melatonin 6mg at HS Increase trileptal from 150mg at HS to 300mg. Patient prefers taking meds once at HS. Montior for Sodium level. Gabapentin 100mg BID PRN for severe anxiety (d/t hx of dystonia with Abilify and Latuda, will use Cristofer for now as PRN) Hydroxyzine 25mg at HS for anxiety/sleep- report it works for him Continue with Sertraline 75mg as home dose. Have room to titrate up as patient has been taking same dose for couple months. It is noted that patient as prescribed Propranolol and Albutrerol by OP provider. Monitor for asthma symptoms. Nursing also notified. 09/10 Patient shared that he is starting to feel little better and is sleeping better. Thinks that some of his decompensation was because he was feeling sick. Patient shared that the intrusive thoughts of wanting to hurt himself or his mother's sister are subsiding and that he would never actually do it and never wants to harm anyone. Although he does share that when the thoughts come sometimes there is some amount of emotion and feeling some desire to act. However he says it is minimal and reiterates he would never harm anyone. Patient said that for years he has been stable on Trileptal 150 mg and Zoloft 50 mg only which was increase to 75 mg a few months ago. Reviewed his history and patient says he has been diagnosed with bipolar and schizoaffective disorder. However creative services writer can not find any reported history of manic episodes; sometimes he gets irritable but it last for listened an hour; no other diagnostic symptoms and on the few times he has not insomnia it is only for a day during which time he is is tired. Patient denies any AVH or paranoid ideations. He agrees to further titrate Zoloft to 100 mg. Trileptal was just increased to 300. 09/11: Continue current management and treatment plan. Recent increase in Trileptal and Zoloft 09/12: Continue current management and treatment plan. Impression: Although just meeting patient, from his cost report clerk can not find any evidence of bipolar disorder; maybe the some psychosis there that his yet to be uncovered and schizoaffective disorder, depressed type could fit however this too is unable to be determined at this time. For now will leave his diagnosis as is since he has been carrying it for awhile 09/13 Patient reports that he is feeling better and says that he is still having intrusive SI thoughts but much less so. He says last week they were pretty constant.. Andnow only 4-5 times a day and not bad.... Patient will get triggered by items he sees on television and having intrusive thought of using that item to hurt himself (and much less frequently, his mother/sister) but he says only last for a few minutes and resolves on its own which he feels is much improvement. He is feeling at this point he could probably go back home but he would like these thoughts to get back down to 0 times a day; despite intrusive SI thoughts, patient has no actual desire or active thoughts to harm himself or others. Account Adjuster discussed diagnosis and OCD symptoms; patient says that he can have excessive cleaning sometimes but did not realize intrusive thoughts could be a part of it. Discussed medication and he agrees to increase Zoloft to 125 mg Plan cv q15 imin Continue Trileptal 300 mg; recently increased from 150 Increase Zoloft to 125 mg Work with treatment team to do collateral Contact the hospitalist regarding hospitalist consultation on admission: pending Diagnostic testing and discharge planning Pt tested positive for flu-A 09/05/25. Utox neg. U/A negative. Medication trials: latuda dystonia. abilify: dystonia. Trazodone gave him panic attack HTN Pt is continued on ARB with controlled blood pressures Monitor per protocol on M5 Low Na diet if possible Recent dx Influenza A Pt is outside window for Tamiflu Pt is on RA No CXR indicated currently Pt did receive flu vaccination June 2025 Wear mask when in public, and on M5 GERD Continue H2B, PPI Avoid food triggers Obesity Pt counseled on benefits of wt loss Nutritional consult recommended Patient educated on: diagnosis, medication risk/benefits and therapeutic strategies Informed Consent: understands Reason for continued inpatient stay Substantial Risk for: stable for discharge, rapid decompensation and med/psych decompensation Time Spent With Patient Time: Total time managing care of this patient today ____ minutes.
[2025-09-13 20:00] VITALS: BP 127/68; PULSE 75; RESP 16; TEMP 36.3; O2SAT 95
[2025-09-13 22:28] VITALS: BP 128/74; PULSE 76
[2025-09-14 08:07] VITALS: BP 106/54; PULSE 66; RESP 16; TEMP 36.6; O2SAT 98
[2025-09-14 09:41] VITALS: BP 106/54; PULSE 66
[2025-09-14] MEDS: Albuterol Sulfate 90 MCG 8 GM INHALER 2 PUFF INHALE ×2 (09:48→22:56)
[2025-09-14] MEDS: Artificial Tears 15 ML DROPS 2 DROP EYE-BOTH (09:48)
[2025-09-14] MEDS: Throat Lozenge, Medicated LOZENGE 1 LOZENGE MUCOUS MEM ×2 (11:03→15:41)
[2025-09-14 13:24] LABS: MANUAL DIFF FLAG NO
[2025-09-14 13:27] LABS: Hematocrit 42.4 % (42.0-52.0); Hemoglobin 13.9 g/dl (14.0-18.0); Imm Gran Abs Auto 0.04 X10*3/uL (0.00-0.03); Imm Gran Pct Auto 0.5 % (0.0-0.4); Lymphocytes Absolute Auto 3.2 X10*3/uL (1.2-4.9); Mean Corpuscular HGB Conc 32.8 g/dl (31.0-36.0); Mean Corpuscular Hemoglobin 26.5 pg (27.0-33.0); Mean Corpuscular Volume 80.9 fL (80.0-98.0); NRBC Abs Auto 0.000 X10*3/uL (0.0-0.012); NRBC Pct Auto 0.0 /100WBC (0.0-0.2); Platelet Count 401 X10*3/uL (160-400); Red Blood Count 5.24 X10*6/uL (4.60-5.80); White Blood Count 8.6 X10*3/uL (4.8-10.8)
[2025-09-14 13:34] LABS: Anion Gap 11 (12-20); Carbon Dioxide 26 mmol/L (22-29); Chloride 105 mmol/L (96-108); Potassium 4.0 mmol/L (3.3-5.1); Sodium 138 mmol/L (135-145)
[2025-09-14] MEDS: guaiFENesin LA 600 MG TAB.ER.12H PO (13:50)
--- NOTE | 2025-09-14 14:44 | HO.PSYCHPN ---
Subjective Subjective Date of Service: 09/14/25 Reason For Visit: F25.9 Interim History: Met with patient; discussed with team Patient reports that he is definitely doing better. He still has momentary intrusive thoughts of SI or HI but he says they immediately leave or not bothersome at all. He considers a significant improvement. Patient feels good about returning home he feels that he is getting close to be back to his regular self. He plans to continue working with his outpatient psychiatrist whom he has had for quite a long time. Mental Status Exam Mental Status Exam Narrative: Pt is alert and oriented; behavior calm, cooperative and friendly; more social in the milieu;patient is not in distress; dressed in casual attire with unkempt hair, scruffy but adequate hygiene; mood is described as better and affect congruent; eye contact appropriate; Speech is a normal rate, volume and prosody; no psychomotor retardation present; thought process is linear and logical; Thought content is on treatment; minimal intrusive SI/HI thoughts; otherwise pertinent to relevant topics and without any delusional content, paranoid ideations or grandiosity; no SI/HI; Denies AVH and there is no evidence of perceptual disturbance. Patients insight and judgment fair Diagnostics Vital Signs (24Hr): Vital Signs - 24 hr 09/13/25 20:00 09/13/25 22:28 09/14/25 08:07 Temperature 97.3 F 97.8 F Pulse Rate 75 76 66 Respiratory Rate 16 16 Blood Pressure 127/68 128/74 106/54 L Pulse Oximetry 95 98 Oxygen Delivery Method Room Air Room Air 09/14/25 09:41 Temperature Pulse Rate 66 Respiratory Rate Blood Pressure 106/54 L Pulse Oximetry Oxygen Delivery Method BMI result Body Mass Index 48.3 Labs 09/14/25 13:18 09/14/25 13:18 Labs: Laboratory Results - last 48 hr 09/14/25 13:18 WBC 8.6 RBC 5.24 Hgb 13.9 L Hct 42.4 MCV 80.9 MCH 26.5 L MCHC 32.8 RDW 13.3 Plt Count 401 H MPV 9.2 L Immature Gran % (Auto) 0.5 H Neut % (Auto) 48.3 Lymph % (Auto) 37.1 Island % (Auto) 9.5 Eos % (Auto) 3.7 Baso % (Auto) 0.9 Lymph # (Auto) 3.2 Island # (Auto) 0.8 Eos # (Auto) 0.3 Baso # (Auto) 0.1 Abs Immat Gran (auto) 0.04 H Absolute Neuts (auto) 4.2 Absolute Nucleated RBC 0.000 Nucleated RBC % (auto) 0.0 Sodium 138 Potassium 4.0 Chloride 105 Carbon Dioxide 26 Anion Gap 11 L Medications Medications Current Medications Acetaminophen (Acetaminophen 325 Mg Tablet) 650 mg PO Q6H PRN PRN Reason: Headache/Pain, Scale 1-10 Last Admin: 09/12/25 10:03 Dose: 650 mg Al Hydroxide/Mg Hydroxide (Magnesium Hydrox/Alum Hydrox 30 Ml Oral.Susp) 30 ml PO Q6H PRN PRN Reason: Heartburn/Nausea Albuterol Sulfate (Albuterol Sulfate 90 Mcg 8 Gm Inhaler) 2 puff INHALE RQ4H PRN PRN Reason: sob Last Admin: 09/14/25 09:48 Dose: 2 puff Artificial Tears (Artificial Tears 15 Ml Drops) 2 drop EYE-BOTH Q4H PRN PRN Reason: Dry Eyes Last Admin: 09/14/25 09:48 Dose: 2 drop Benzocaine (Throat Lozenge, Medicated Lozenge) 1 lozenge MUCOUS MEM Q2H PRN PRN Reason: Sore Throat Last Admin: 09/14/25 11:03 Dose: 1 lozenge Dicyclomine HCl (Dicyclomine Hcl 10 Mg Capsule) 20 mg PO BID [facility] Last Admin: 09/14/25 09:40 Dose: 20 mg Famotidine (Famotidine 20 Mg Tablet) 20 mg PO BID [facility] Last Admin: 09/14/25 09:42 Dose: 20 mg Gabapentin (Gabapentin 400 Mg Capsule) 800 mg PO BEDTIME [facility] Last Admin: 09/13/25 22:30 Dose: 800 mg Gabapentin (Gabapentin 100 Mg Capsule) 100 mg PO BID PRN PRN Reason: severe anxiety Guaifenesin (Guaifenesin La 600 Mg Tab.Er.12h) 600 mg PO BID PRN PRN Reason: Cough Last Admin: 09/14/25 13:50 Dose: 600 mg Hydroxyzine HCl (Hydroxyzine Hcl 25 Mg Tablet) 25 mg PO Q6H PRN PRN Reason: mild anxiety Last Admin: 09/09/25 00:16 Dose: 25 mg Hydroxyzine HCl (Hydroxyzine Hcl 25 Mg Tablet) 25 mg PO BEDTIME [facility]DA Last Admin: 09/13/25 22:30 Dose: 25 mg Ibuprofen (Ibuprofen 400 Mg Tablet) 400 mg PO Q6H PRN PRN Reason: Pain, Moderate(Pain Scale 4-6) Last Admin: 09/13/25 13:01 Dose: 400 mg Lidocaine (Lidocaine 5 % Ointment 35 Gm) 1 appl TOPICAL Q6H PRN; Protocol PRN Reason: thigh pain Last Admin: 09/14/25 09:49 Dose: 1 appl Magnesium Hydroxide (Milk Of Magnesia 30 Ml Oral.Susp) 30 ml PO DAILY PRN PRN Reason: Constipation Last Admin: 09/09/25 11:40 Dose: 30 ml Meclizine HCl (Meclizine Hcl 12.5 Mg Tablet) 12.5 mg PO TID PRN PRN Reason: Dizziness Last Admin: 09/14/25 09:48 Dose: 12.5 mg Melatonin (Melatonin 3 Mg Tablet) 6 mg PO BEDTIME LINDA Last Admin: 09/13/25 22:31 Dose: 6 mg Metoclopramide HCl (Metoclopramide Hcl 10 Mg Tablet) 10 mg PO Q6H PRN PRN Reason: Nausea and Vomiting Last Admin: 09/14/25 09:48 Dose: 10 mg Nicotine Polacrilex (Nicotine Polacrilex 2 Mg Gum) 2 mg BUCCAL Q2H PRN PRN Reason: Nicotine Cravings Ondansetron HCl (Ondansetron Odt 4 Mg Tab.Rapdis) 4 mg TRANSLINGU Q8H PRN PRN Reason: Nausea Oxcarbazepine (Oxcarbazepine 300 Mg Tablet) 300 mg PO BEDTIME LINDA Last Admin: 09/13/25 22:29 Dose: 300 mg Propranolol HCl (Propranolol Hcl 40 Mg Tablet) 40 mg PO BID LINDA; Protocol Last Admin: 09/14/25 09:41 Dose: 40 mg Sertraline HCl (Sertraline Hcl 25 Mg Tablet) 125 mg PO BEDTIME LINDA Last Admin: 09/13/25 22:29 Dose: 125 mg Sucralfate (Sucralfate 1 Gm Tablet) 1 gm PO BIDAC LINDA Last Admin: 09/14/25 09:41 Dose: 1 gm Valsartan (Valsartan 80 Mg Tablet) 80 mg PO DAILY LINDA; Protocol Last Admin: 09/14/25 09:45 Dose: 80 mg Allergies Allergies Allergy/AdvReac Type Severity Reaction Status Date / Time Sulfa (Sulfonamide Allergy Rash Verified 09/08/25 22:56 Antibiotics) trimethoprim Allergy Unknown Verified 09/08/25 22:56 aripiprazole AdvReac Muscle Verified 09/08/25 22:56 cramps lurasidone AdvReac Muscle Verified 09/08/25 22:56 cramps trazodone AdvReac Anxiety Verified 09/08/25 22:56 Assessment & Plan Assessment & Plan (1) OCD (obsessive compulsive disorder): Status: Acute Code(s): F42.9 - Obsessive-compulsive disorder, unspecified (2) Bipolar disorder, unspecified: Status: Acute Code(s): F31.9 - Bipolar disorder, unspecified (3) HTN (hypertension): Qualifiers: Hypertension type: primary hypertension Qualified Code(s): I10 - Essential (primary) hypertension Status: Acute Code(s): I10 - Essential (primary) hypertension (4) GERD (gastroesophageal reflux disease): Qualifiers: Esophagitis presence: without esophagitis Qualified Code(s): K21.9 - Gastro-esophageal reflux disease without esophagitis Status: Acute Code(s): K21.9 - Gastro-esophageal reflux disease without esophagitis (5) Obesity: Qualifiers: Body mass index: BMI 45.0-49.9 Obesity classification: adult class 3 (BMI >= 40) Obesity type: due to excess calories Serious obesity comorbidity presence: without serious comorbidity Qualified Code(s): E66.813 - Obesity, class 3; Z68.42 - Body mass index [BMI] 45.0-49.9, adult Status: Acute Code(s): E66.9 - Obesity, unspecified (6) Influenza A: Status: Acute Code(s): J10.1 - Influenza due to other identified influenza virus with other respiratory manifestations Plan HPI: Patient is a 35 year-old Single, Slovak speaking male with hx of bipolar/ schizoaffective, obesity, childhood asthma, HTN, prediabetes, chronic muscular chest pain, GERD, with wisdom teeth extractionsdisorder who presented to the ED with concerns of decompensating. Pt reported I've been having fleeting thoughts that almost seem like images to hurt my mother and my sister . Pt reports that these have been happening sporadically over the last few months but have become consistent recently. Pt reports that once these thoughts and feelings started he removed all knives and other things that can be used as weapons from his possession. Patient reports no HI/SIB. Denies hx of suicide attempts. Pt reports he is hallucinating but only at night when he is trying to sleep. Patient reports that he is not sleeping well and his appetite has been significantly lower than normal. I have not slept well for a couple of weeks or maybe longer. I got few hours here and there which affect my mental health . Patient reports that he was prescribed Amoxicillin for ear infection x10 days and believe this medications messed up everything . Report he last took it was yesterday in the ED and should be all set. Currently denies SI but it comes and goes . Feeling safe here on the unit. Denies SIB and SIB hx. Denies HI but sometimes having thoughts of hurting my sister . Report sometime HI toward mom but more toward my sister . As mention above, he gave all knives and other things can be used as weapon. report sometimes hearing voices at night but believe it is not hallucination. Family hx: Mom has Bipolar; Sister schizoaffective; sister, mom, grandfather have alcohol issues. Formulation/clinical reasoning: poor sleep in a prolong period along with poor appetite. Increased depression symptoms, SI and HI toward family members. Patient is decompensating and feeling unsafe in community. Hx of bipolar vs schizoaffective, patient would benefit in restrictive environment for safety, medication adjustment and refer patient back to OP psychiatric services for aftercare. Hospital course: 09/09/25 Melatonin 6mg at HS Increase trileptal from 150mg at HS to 300mg. Patient prefers taking meds once at HS. Montior for Sodium level. Gabapentin 100mg BID PRN for severe anxiety (d/t hx of dystonia with Abilify and Latuda, will use Cristofer for now as PRN) Hydroxyzine 25mg at HS for anxiety/sleep- report it works for him Continue with Sertraline 75mg as home dose. Have room to titrate up as patient has been taking same dose for couple months. It is noted that patient as prescribed Propranolol and Albutrerol by OP provider. Monitor for asthma symptoms. Nursing also notified. 09/10 Patient shared that he is starting to feel little better and is sleeping better. Thinks that some of his decompensation was because he was feeling sick. Patient shared that the intrusive thoughts of wanting to hurt himself or his mother's sister are subsiding and that he would never actually do it and never wants to harm anyone. Although he does share that when the thoughts come sometimes there is some amount of emotion and feeling some desire to act. However he says it is minimal and reiterates he would never harm anyone. Patient said that for years he has been stable on Trileptal 150 mg and Zoloft 50 mg only which was increase to 75 mg a few months ago. Reviewed his history and patient says he has been diagnosed with bipolar and schizoaffective disorder. However quality analyst/technical writer can not find any reported history of manic episodes; sometimes he gets irritable but it last for listened an hour; no other diagnostic symptoms and on the few times he has not insomnia it is only for a day during which time he is is tired. Patient denies any AVH or paranoid ideations. He agrees to further titrate Zoloft to 100 mg. Trileptal was just increased to 300. 09/11: Continue current management and treatment plan. Recent increase in Trileptal and Zoloft 09/12: Continue current management and treatment plan. Impression: Although just meeting patient, from his data analyst report writer can not find any evidence of bipolar disorder; maybe the some psychosis there that his yet to be uncovered and schizoaffective disorder, depressed type could fit however this too is unable to be determined at this time. For now will leave his diagnosis as is since he has been carrying it for awhile 09/13 Patient reports that he is feeling better and says that he is still having intrusive SI thoughts but much less so. He says last week they were pretty constant.. Andnow only 4-5 times a day and not bad.... Patient will get triggered by items he sees on television and having intrusive thought of using that item to hurt himself (and much less frequently, his mother/sister) but he says only last for a few minutes and resolves on its own which he feels is much improvement. He is feeling at this point he could probably go back home but he would like these thoughts to get back down to 0 times a day; despite intrusive SI thoughts, patient has no actual desire or active thoughts to harm himself or others. Automatic Winder Operator discussed diagnosis and OCD symptoms; patient says that he can have excessive cleaning sometimes but did not realize intrusive thoughts could be a part of it. Discussed medication and he agrees to increase Zoloft to 125 mg 09/14 Patient reports that he is definitely doing better. He still has momentary intrusive thoughts of SI or HI but he says they immediately leave or not bothersome at all. He considers a significant improvement. Patient feels good about returning home he feels that he is getting close to be back to his regular self. He plans to continue working with his outpatient psychiatrist whom he has had for quite a long time. Patient has no plans or intentions or emotions behind any of these intrusive thoughts. Patient has remained in good behavioral and impulse control throughout his time in the unit in his appropriate to return to the community for treatment. He is asking for discharge tomorrow. Patient's request for discharge honored. Plan cv q15 imin Continue Trileptal 300 mg; recently increased from 150 Increase Zoloft to 125 mg Work with treatment team to do collateral Contact the hospitalist regarding hospitalist consultation on admission: pending Diagnostic testing and discharge planning Pt tested positive for flu-A 09/05/25. Utox neg. U/A negative. Medication trials: latuda dystonia. abilify: dystonia. Trazodone gave him panic attack HTN Pt is continued on ARB with controlled blood pressures Monitor per protocol on M5 Low Na diet if possible Recent dx Influenza A Pt is outside window for Tamiflu Pt is on RA No CXR indicated currently Pt did receive flu vaccination June 2025 Wear mask when in public, and on M5 GERD Continue H2B, PPI Avoid food triggers Obesity Pt counseled on benefits of wt loss Nutritional consult recommended Patient educated on: diagnosis, medication risk/benefits and therapeutic strategies Informed Consent: understands Reason for continued inpatient stay Substantial Risk for: stable for discharge Time Spent With Patient Time: Total time managing care of this patient today ____ minutes.
[2025-09-14 20:00] VITALS: BP 136/70; PULSE 74; TEMP 37.5; O2SAT 97
[2025-09-15 08:15] VITALS: BP 98/60; PULSE 63; RESP 16; TEMP 36.4; O2SAT 96
--- NOTE | 2025-09-15 08:58 | PM.PSYDC ---
DS: Providers Provider Date of admission: 09/08/25 20:40 Date of discharge: 09/15/25 Primary care physician: Unknown Physician Admitting clinician: Sepideh Timmons Consults: 09/08/25 23:10 Consult to Hospitalist Routine Comment: Consulting Provider: [facility] [place] Hospitalists Reason For Exam: admission Attending physician on discharge: Hu Hilliard DS: Diagnosis Discharge Diagnosis (1) OCD (obsessive compulsive disorder): Status: Acute (2) Bipolar disorder, unspecified: Status: Acute (3) HTN (hypertension): Status: Acute (4) GERD (gastroesophageal reflux disease): Status: Acute (5) Obesity: Status: Acute (6) Influenza A: Status: Acute DS: Medications Discharge Medications Home Medications: Home Medications ?Medication ?Instructions ?Recorded ?Confirmed Lactobacillus rhamnosus GG 10 1 cap PO BID 09/08/25 09/08/25 billion cell capsule (Culturelle) albuterol sulfate 90 mcg/actuation inhalation 09/08/25 09/08/25 aerosol inhaler dicyclomine 20 mg tablet 20 mg PO BID 09/08/25 09/08/25 famotidine 20 mg tablet 20 mg PO BID 09/08/25 09/08/25 gabapentin 800 mg tablet 800 mg PO BEDTIME 09/08/25 09/08/25 irbesartan 150 mg tablet 150 mg PO DAILY 09/08/25 09/08/25 meclizine 12.5 mg tablet 12.5 mg PO TID PRN Dizziness 09/08/25 09/08/25 melatonin 5 mg tablet 5 mg PO BEDTIME PRN Sleep 09/08/25 09/08/25 omeprazole 40 mg capsule,delayed 40 mg PO DAILY 09/08/25 09/08/25 release ondansetron HCl 4 mg tablet 4 mg PO Q8H PRN Nausea 09/08/25 09/08/25 polyethylene glycol 17 ea miscellaneous PRN 09/08/25 Constipation propranolol 40 mg tablet 40 mg PO BID 09/08/25 09/08/25 sucralfate 1 gram tablet 1 g PO TID 09/08/25 09/08/25 Previous Rx's ?Medication ?Instructions ?Recorded hydroxyzine HCl 25 mg tablet 25 mg PO BEDTIME PRN insomnia 30 09/14/25 days #30 tabs lidocaine 5 % topical ointment 1 appl topical BID PRN b/l 09/14/25 bursitis/thigh 30 days #30 grams oxcarbazepine 300 mg tablet 300 mg PO DAILY 30 days #30 tabs 09/14/25 sertraline 100 mg tablet 100 mg PO BEDTIME 30 days #30 tabs 09/14/25 sertraline 25 mg tablet 25 mg PO BEDTIME 30 days #30 tabs 09/14/25 Mental Status Exam Mental Status Exam Narrative: Pt is alert and oriented; behavior calm, cooperative and friendly; patient is not in distress; dressed in casual attire with unkempt hair, scruffy but adequate hygiene; mood is described as improved and affect congruent, noticeably brighter and more relaxed; eye contact appropriate; Speech is a normal rate, volume and prosody; no psychomotor retardation present; thought process is linear and logical; Thought content is on treatment; minimal intrusive SI/HI thoughts; otherwise pertinent to relevant topics and without any delusional content, paranoid ideations or grandiosity; no SI/HI; Denies AVH and there is no evidence of perceptual disturbance. Patients insight and judgment fair Data Data Completed and Pending Completed studies during hospitalization [Text1]: 09/10/25 09/14/25 09:44 13:18 WBC 8.6 RBC 5.24 Hgb 13.9 L Hct 42.4 MCV 80.9 MCH 26.5 L MCHC 32.8 RDW 13.3 Plt Count 401 H MPV 9.2 L Immature Gran % (Auto) 0.5 H Neut % (Auto) 48.3 Lymph % (Auto) 37.1 [place] % (Auto) 9.5 Eos % (Auto) 3.7 Baso % (Auto) 0.9 Lymph # (Auto) 3.2 [place] # (Auto) 0.8 Eos # (Auto) 0.3 Baso # (Auto) 0.1 Abs Immat Gran (auto) 0.04 H Absolute Neuts (auto) 4.2 Absolute Nucleated RBC 0.000 Nucleated RBC % (auto) 0.0 Sodium 141 138 Potassium 3.8 4.0 Chloride 104 105 Carbon Dioxide 28 26 Anion Gap 13 11 L BUN 9 Creatinine 0.68 Estim Creat Clear Calc 196.6 Estimated GFR > 60 Random Glucose 145 H Estimat Average Glucose 108 Hemoglobin A1c % 5.4 Calcium 9.3 Total Bilirubin 0.3 AST 34 ALT 40 Alkaline Phosphatase 93 Total Protein 7.6 Albumin 4.8 Triglycerides 76 Cholesterol 135 LDL Cholesterol, Calc 87 HDL Cholesterol 33 L TSH 0.36 Free T4 1.43 DS: Summary Hospital Course Hospital Course: HPI: Patient is a 35 year-old Single, Ukrainian speaking male with hx of bipolar/ schizoaffective, obesity, childhood asthma, HTN, prediabetes, chronic muscular chest pain, GERD, with wisdom teeth extractionsdisorder who presented to the ED with concerns of decompensating. Pt reported I've been having fleeting thoughts that almost seem like images to hurt my mother and my sister . Pt reports that these have been happening sporadically over the last few months but have become consistent recently. Pt reports that once these thoughts and feelings started he removed all knives and other things that can be used as weapons from his possession. Patient reports no HI/SIB. Denies hx of suicide attempts. Pt reports he is hallucinating but only at night when he is trying to sleep. Patient reports that he is not sleeping well and his appetite has been significantly lower than normal. I have not slept well for a couple of weeks or maybe longer. I got few hours here and there which affect my mental health . Patient reports that he was prescribed Amoxicillin for ear infection x10 days and believe this medications messed up everything . Report he last took it was yesterday in the ED and should be all set. Currently denies SI but it comes and goes . Feeling safe here on the unit. Denies SIB and SIB hx. Denies HI but sometimes having thoughts of hurting my sister . Report sometime HI toward mom but more toward my sister . As mention above, he gave all knives and other things can be used as weapon. report sometimes hearing voices at night but believe it is not hallucination. Family hx: Mom has Bipolar; Sister schizoaffective; sister, mom, grandfather have alcohol issues. Hospital course: Patient reported return of intrusive thoughts of SI and HI but he remained without any active plan, intent. Patient agreed to increasing Trileptal. Soon patient started to feel better and sleep better. 09/09/25 Melatonin 6mg at HS Increase trileptal from 150mg at HS to 300mg. Patient prefers taking meds once at HS. Montior for Sodium level. Gabapentin 100mg BID PRN for severe anxiety (d/t hx of dystonia with Abilify and Latuda, will use Cristofer for now as PRN) Hydroxyzine 25mg at HS for anxiety/sleep- report it works for him Continue with Sertraline 75mg as home dose. Have room to titrate up as patient has been taking same dose for couple months. It is noted that patient as prescribed Propranolol and Albutrerol by OP provider. Monitor for asthma symptoms. Nursing also notified. 09/10 Patient shared that he is starting to feel little better and is sleeping better. Thinks that some of his decompensation was because he was feeling sick. Patient shared that the intrusive thoughts of wanting to hurt himself or his mother's sister are subsiding and that he would never actually do it and never wants to harm anyone. Although he does share that when the thoughts come sometimes there is some amount of emotion and feeling some desire to act. However he says it is minimal and reiterates he would never harm anyone. Patient said that for years he has been stable on Trileptal 150 mg and Zoloft 50 mg only which was increase to 75 mg a few months ago. Formulation Reviewed his history and patient says he has been diagnosed with bipolar and schizoaffective disorder. However telegraphic typewriter operator can not find any reported history of manic episodes; sometimes he gets irritable but it last for listened an hour; no other diagnostic symptoms and on the few times he has not insomnia it is only for a day during which time he is is tired. Patient denies any AVH or paranoid ideations. He agrees to further titrate Zoloft to 100 mg. Trileptal was just increased to 300. Although just meeting patient, from his oracle reports developer can not find any evidence of bipolar disorder; maybe some psychosis? but if so has yet to be uncovered and telegraphic typewriter operator can not identify symptoms for a clear diagnosis of schizoaffective disorder and patient has been stable without medications that treat schizoaffective disorder/bipolar disorder. From telegraphic typewriter operator's assessment it seems that patient has MDD and OCD with intrusive thoughts of SI/HI. That said, telegraphic typewriter operator understands that maybe other history uncovered and so telegraphic typewriter operator will not formally change this diagnosis that he has been carrying, however will aim to treat OCD/MDD. 09/13 with increase of Zoloft, Patient reports that he is feeling better and says that he is still having intrusive SI thoughts but much less so. He says last week they were pretty constant.. Andnow only 4-5 times a day and not bad.... Patient will get triggered by items he sees on television and having intrusive thought of using that item to hurt himself (and much less frequently, his mother/sister) but he says only last for a few minutes and resolves on its own which he feels is much improvement. He is feeling at this point he could probably go back home but he would like these thoughts to get back down to 0 times a day; despite intrusive SI thoughts, patient has no actual desire or active thoughts to harm himself or others. Print Producer discussed diagnosis and OCD symptoms; patient says that he can have excessive cleaning sometimes but did not realize intrusive thoughts could be a part of it. Patient said that he would discuss this with his outpatient psychiatrist whom he has for years. Discussed medication and he agrees to increase Zoloft to 125 mg 09/14 Patient reports that he is definitely doing better. He still has momentary intrusive thoughts of SI or HI but he says they immediately leave and are not bothersome at all. He considers a significant improvement. Patient feels good about returning home he feels that he is getting close to being back to his regular self. He plans to continue working with his outpatient psychiatrist whom he has had for quite a long time. Patient has no plans or intentions or emotions behind any of these intrusive thoughts. Patient has remained in good behavioral and impulse control throughout his time in the unit and organized in both speech and behavior; he has been appropriate with peers and staff and engaged in treatment. Patient clearly demonstrates that he reaches out for help with ever feeling unsafe and will continue to do so. Patient is asking for discharge. He is not in imminent risk of harm to self or others and appropriate to return to the community for treatment. Patient's request for discharge honored. Medications: Increased to Trileptal 300 mg Increase to Zoloft to 125 mg Diagnosis: OCD MDD Regarding that patient carries an historical diagnosis of schizoaffective disorder/bipolar disorder. Print Producer could not identify history or symptoms for this diagnosis but given that patient is formally unknown, at this time telegraphic typewriter operator will leave historical diagnosis as is (and consider it a rule out) Medication trials: latuda dystonia. abilify: dystonia. Trazodone caused panic attack Time spent discussing smoking cessation with patient: 3 to 10 minutes Status at Discharge Functional status at discharge: independent ambulation Overall status at discharge: patient is progressing back to baseline Time Spent with Patient Time attestation: Total time managing care of this patient today _40___ minutes. Time spent: Greater than 30 minutes Specific discharge activities: Met with patient; discussed with team; prescriptions; charting Discharge Plan Discharge Anticipated Discharge Date/Time: 09/15/25 11:57 Patient Disposition: Home, Self-Care Discharge Diagnosis: OCD Referrals: [facility] [Other] - 1 Week [facility] Therapy w Doanl Thurston [Other] - 09/21/25 12:00 pm [facility] Case Management w Siomara Kiran [Other] - 09/15/25 Referral Note: Cande [phone] will be out for the rest of the week, she let social work know Siomara will be reaching out to you after you discharge to schedule a meeting. His number is noted above. Cande plans to follow up with you on Saturday. Physician,Unknown J [Primary Care Provider, Medical] - 1 Week Discharge Medications: New lidocaine 5 % Ointment 1 appl topical BID PRN (Reason: b/l bursitis/thigh) 30 Days Qty: 30 0RF Protocol: Apply to: Apply to: thigh; affected area Continued sucralfate 1 gram tablet 1 g PO TID ondansetron HCl 4 mg tablet 4 mg PO Q8H PRN (Reason: Nausea) omeprazole 40 mg capsule,delayed release(DR/EC) 40 mg PO DAILY propranolol 40 mg tablet 40 mg PO BID famotidine 20 mg tablet 20 mg PO BID gabapentin 800 mg tablet 800 mg PO BEDTIME dicyclomine 20 mg tablet 20 mg PO BID irbesartan 150 mg tablet 150 mg PO DAILY albuterol sulfate 90 mcg/actuation HFA aerosol inhaler inhalation meclizine 12.5 mg Tablet 12.5 mg PO TID PRN (Reason: Dizziness) Culturelle 10 billion cell Capsule 1 cap PO BID polyethylene glycol Powder 17 ea MISCELLANEOUS PRN (Reason: Constipation) melatonin 5 mg Tablet 5 mg PO BEDTIME PRN (Reason: Sleep) sertraline 25 mg tablet 25 mg PO BEDTIME 30 Days Qty: 30 0RF Rx Instructions: take with 100mg tab Changed sertraline 100 mg tablet 100 mg PO BEDTIME 30 Days Qty: 30 0RF Rx Instructions: take with 25mg tab oxcarbazepine 300 mg tablet 300 mg PO DAILY 30 Days Qty: 30 0RF hydroxyzine HCl 25 mg tablet 25 mg PO BEDTIME PRN (Reason: insomnia) 30 Days Qty: 30 0RF Discharge Orders: Discharge Order (Routine); Ordered 09/15/25 Ordered By: Hu Hilliard Diet: Regular diet Activity on Discharge: As tolerated Stand Alone Forms: Patient Portal Discharge page Print Language: Ukrainian Care Plan Goals: Maintain mood and safe behaviors Take medications as prescribed Practice coping skills Continue with outpatient providers and reach out to them as needed Health Concerns: Mood stability and behaviors Hypertension GERD Bursitis Plan of Treatment: Follow up with your PCP, psychiatric provider and other outpatient providers regarding above concerns Take medications as prescribed Assessment: Risk assessment at time of discharge:? Patient was interviewed prior to discharge and found to be fully oriented and without any SI or HI. Patient has improved insight and judgment and wants to continue treatment. Patient is not in imminent risk of harm to self or others and has a safety plan that includes presenting to the closest ER or calling 911 if feeling unsafe.? Patient has been observed closely by nursing and unit staff throughout admission; patient has not engaged in any behaviors that suggest dangerousness to self or others and has demonstrated appropriate behaviors and impulse control
[2025-09-15] MEDS: Albuterol Sulfate 90 MCG 8 GM INHALER 2 PUFF INHALE (09:27)
[2025-09-15] MEDS: Artificial Tears 15 ML DROPS 2 DROP EYE-BOTH (09:27)
== END 2025-09-15 11:15 | disposition home or self-care (01) | DRG 881 ==
PROVIDERS: Psychiatry & Neurology Psychiatry; Admitting Provider Psychiatry & Neurology Psychiatry; Visit Provider Psychiatry & Neurology Psychiatry
DX: F32.9 Major depressive disorder, single episode, unspecified (principal); R45.851 Suicidal ideations; Z68.42 Body mass index [BMI] 45.0-49.9, adult; F42.9 Obsessive-compulsive disorder, unspecified; R45.850 Homicidal ideations; J10.1 Influenza due to other identified influenza virus with other respiratory manifestations; F41.9 Anxiety disorder, unspecified; I10 Essential (primary) hypertension; K21.9 Gastro-esophageal reflux disease without esophagitis; E66.813 Obesity, class 3; J45.909 Unspecified asthma, uncomplicated; Z79.899 Other long term (current) drug therapy; Z88.2 Allergy status to sulfonamides; Z88.8 Allergy status to other drugs, medicaments and biological substances
CPT/HCPCS: 36415; 80051; 80053; 80061; 83036; 84439; 84443; 85025

== ENCOUNTER → 2025-09-08 20:40 | Outpatient (BNV) | payer MEDICARE, MEDICAID, SELFPAY | PROVIDERS: Admitting Provider Psychiatry & Neurology Psychiatry; Visit Provider Nurse Practitioner Psychiatric/Mental Health | DX: F31.9 Bipolar disorder, unspecified (principal); I10 Essential (primary) hypertension; K21.9 Gastro-esophageal reflux disease without esophagitis; E66.813 Obesity, class 3; Z68.42 Body mass index [BMI] 45.0-49.9, adult; J10.1 Influenza due to other identified influenza virus with other respiratory manifestations | CPT/HCPCS: 90792; 99232 ==

== ENCOUNTER → 2025-09-08 20:40 | Outpatient (BNV) | payer MEDICARE, MEDICAID, SELFPAY | PROVIDERS: Admitting Provider Psychiatry & Neurology Psychiatry; Visit Provider Nurse Practitioner Family | DX: I10 Essential (primary) hypertension (principal); K21.9 Gastro-esophageal reflux disease without esophagitis; E66.813 Obesity, class 3; Z68.42 Body mass index [BMI] 45.0-49.9, adult; J10.1 Influenza due to other identified influenza virus with other respiratory manifestations | CPT/HCPCS: 99223 ==